=== PATIENT | female | born 1940 | race Caucasian/White ===

== ENCOUNTER 2017-05-26 14:31 | Inpatient (IN) ==
[2017-05-26] MEDS ORDERED: *HR* Morphine 2 MG/ML SYRINGE IVP PRN (18:57)
[2017-05-26] MEDS ORDERED: Ondansetron 4 MG/2 ML VIAL IVP PRN (18:57)
[2017-05-26] MEDS ORDERED: Naloxone 0.4 MG/ML INJ IVP PRN (18:57)
--- NOTE | 2017-05-26 19:02 | Internal Med History&Physical ---
Date of Encounter: 05/26/17 Time of Encounter: 19:02 Assessment and Plan (1) Spontaneous pneumothorax Current visit: Yes Status: Acute Recently discharged after receiving chest tube for spontaneous pneumothorax. CT surgery consult appreciated- unclear if this is a new event or progression of previous episode. Continue chest tube, per CT surgery. Pain control with PRN Oxycodone and Morphine. Patient may require talc pleurodesis/surgery. Will hold Plavix and Xarelto for now. Continue supplemental O2 and supportive care. (2) CHF (congestive heart failure) Current visit: Yes Status: Chronic Not in acute exacerbation. Continue diuretics, beta eri and ACEI. Fluid restriction. Qualifiers: Congestive heart failure type: combined Congestive heart failure chronicity : chronic Qualified Code(s): I50.42 - Chronic combined systolic (congestive) and diastolic (congestive) heart failure (3) Atrial fibrillation Current visit: Yes Status: Chronic currently rate-controlled. Continue Telemetry monitoring and Metoprolol. Hold Xarelto. Qualifiers: Atrial fibrillation type: chronic Qualified Code(s): I48.2 - Chronic atrial fibrillation (4) COPD (chronic obstructive pulmonary disease) Current visit: Yes Status: Chronic Not in acute exacerbation. Continue Advair, as needed bronchodilators, Spiriva, supplemental O2; she is on home O2; Qualifiers: COPD type: unspecified COPD Qualified Code(s): J44.9 - Chronic obstructive pulmonary disease, unspecified (5) Coronary artery disease Current visit: Yes Status: Chronic Qualifiers: Coronary Disease-Associated Artery/Lesion type: [place] artery [place] vs. transplanted heart: [place] heart Associated angina: without angina Qualified Code(s): I25.10 - Atherosclerotic heart disease of [place] coronary artery without angina pectoris (6) Diabetes Current visit: Yes Status: Chronic Accucheck blood glucose monitoring with basal bolus insulin regimen. Diabetic diet. 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 Magallanes is a 77 year old female with multiple medical problems, presenting with progressive shortness of breath. Patient was recently discharged from our hospital after being treated for pneumothorax. She felt better for 2-3 days after discharge after which she started feeling progressively short of breath, aggravated with exertion, associated with intermittent right-sided chest pain. She was extremely tired and could not get around the house. She does live alone as her is in a alf due to dementia. No fever, chills, cough, nausea, vomiting or any other complaints. Past Med Surg Social Fam HX - Past Medical History Medical history: atrial fibrillation, COPD, coronary artery disease, DVT, diabetes, GERD, hyperlipidemia, hypertension, other Psychiatric history: depression - Past Surgical History Surgical History: angioplasty/stent, cholecystectomy, hysterectomy, other - Social History Smoking Status: Former smoker Smokeless Tobacco Status: No Alcohol use: none Drug use: none Current living situation: Home - Independent Activity Level: Uses cane/walker Recent Out of Country Travel Within the Last 8 Weeks: No - Family History Mother Adopted: No Living Status: Hx Family Cardiac Disorders: Yes Hx Family Respiratory Disorders: Yes (COPD) Hx Family Cancer: Yes (lung, breast) Hx Family GI Disorders: No Hx Family Endocrine Disorder: No Hx Family Neuromuscular Disorders: No Hx Family Neurologic Disorders: No Hx Family HEENT Disorders: No Hx Family Autoimmune Disorders: Yes (non hygkins lymphoma) Internal Medicine - H&P: Meds Calcitriol [Rocaltrol] 0.25 mcg PO MOWEFR 03/07/16 [History] Carbidopa/Levodopa 25/100 [Sinemet 25/100] 1 tab PO TID 03/07/16 [History] Cholecalciferol (Vitamin D3) [Vitamin D3] 5,000 unit PO DAILY 03/07/16 [History] Clopidogrel Bisulfate [Plavix] 75 mg PO DAILY 03/07/16 [History] Fluticasone Propionate Nasal [Flonase] 2 spray NS HS 03/07/16 [History] Furosemide [Lasix] 40 mg PO DAILY 03/07/16 [History] Gabapentin [Neurontin] 800 mg PO QID 03/07/16 [History] HYDROcodone/Acet 5/325 mg [Latexo 5-325 mg] 1 tab PO TID 03/07/16 [History] Insulin ASPART [Novolog Flexpen] 12 unit SQ TID 03/07/16 [History] Insulin DETEMIR [Levemir Flextouch] 80 unit SQ QAM 03/07/16 [History] Leflunomide [Arava] 10 mg PO QPM 03/07/16 [History] Levothyroxine Sodium [Tirosint] 88 mcg PO DAILY 03/07/16 [History] Magnesium l-Lactate [Mag-Tab Sr] 84 mg PO QPM 03/07/16 [History] Potassium Chloride [K-Tab ER] 20 meq PO TID 03/07/16 [History] Rivaroxaban [Xarelto] 15 mg PO QPM 03/07/16 [History] Tiotropium [Spiriva] 1 cap PO DAILY 03/07/16 [History] Ustekinumab [Stelara (For Outpatient Infusion)] 90 mg SQ [id number] 03/07/16 [ History] Vitamin B Complex [B Complex] 1 tab PO QPM 03/07/16 [History] Acetaminophen [Tylenol Arthritis] 650 mg PO DAILY 04/02/16 [History] Ascorbic Acid [Vitamin C] 1,000 mg PO DAILY 04/02/16 [History] Cetirizine HCl [Zyrtec] 10 mg PO QPM 04/02/16 [History] Fluticasone/Salmeterol [Advair 250-50 Diskus] 1 puff IH BID 04/02/16 [History] Inulin/Chromium Picolinate [Fiber Gummies] 500 mg PO DAILY #0 04/02/16 [History ] Levalbuterol [Xopenex INH] 2 puff PO Q6H 04/02/16 [History] Pantoprazole Sodium [Protonix] 40 mg PO DAILY 02/10/17 [History] hydrOXYzine pamoate [Hydroxyzine Pamoate] 25 mg PO Q6H PRN 02/10/17 [History] Alendronate Sodium [Fosamax] 70 mg PO QWEEK 05/18/17 [History] Atorvastatin [Lipitor] 40 mg PO HS 05/18/17 [History] Metoprolol [Lopressor] 25 mg PO BID 05/18/17 [History] Tizanidine HCl 4 mg PO DAILY PRN 05/18/17 [History] Allergies amlodipine [From Norvasc] Allergy (Severe, Verified 05/26/17 07:47) Swelling of Lip/Tongue/Throat carbamazepine [From Tegretol] Allergy (Mild, Verified 05/26/17 07:47) Hives ciprofloxacin [From Cipro] Allergy (Mild, Verified 05/26/17 07:47) Rash nitrofurantoin [From Macrobid] Allergy (Mild, Verified 05/26/17 07:47) Rash Sulfa (Sulfonamide Antibiotics) Allergy (Mild, Verified 05/26/17 07:47) Hives sulfamethoxazole [From Bactrim] Allergy (Mild, Verified 05/26/17 07:47) Rash trimethoprim [From Bactrim] Allergy (Mild, Verified 05/26/17 07:47) Rash acetaminophen [From Percocet] Adverse Reaction (Mild, Verified 05/26/17 07:47) Confusion meperidine [From Demerol] Adverse Reaction (Mild, Verified 05/26/17 07:47) Vomiting Oxycodone [From Percocet] Adverse Reaction (Mild, Verified 05/26/17 07:47) Confusion promethazine [From Phenergan] Adverse Reaction (Mild, Verified 05/26/17 07:47) Vomiting NSAIDS (Non-Steroidal Anti-Inflamma Adverse Reaction (Unknown, Verified 07:47) UNABLE TO TAKE D/T KIDNEY DYSFUNCTION All Systems PM: A 10-system review of systems was performed and is negative for pertinent findings except as documented above in the HPI. - Constitutional Constitutional: fatigue, malaise, no chills, no fever(s), no night sweats - EENT Eyes: no change in vision, no discharge, no pain, no photophobia Ears: no ear discharge, no ear pain, no tinnitus Nose, mouth and throat: no dysphagia, no nasal discharge, no neck pain, no sore throat - Cardiovascular Cardiovascular ROS IM: chest pain, dyspnea - Respiratory Respiratory: dyspnea, dyspnea on exertion - Gastrointestinal Gastrointestinal: no abdominal pain, no diarrhea, no hematemesis, no hematochezia, no melena, no nausea, no vomiting - Genitourinary Genitourinary: no change in urinary stream, no dysuria, no flank pain, no hematuria - Musculoskeletal Musculoskeletal ROS IM: no numbness, no tingling - Integumentary Integumentary IM: no rash, no unusual bruising - Neurological Neurological ROS: no confusion, no convulsions, no focal weakness, no numbness, no tingling, no tremor(s) - Hematologic/Lymphatic Hematologic/Lymphatic: no easy bruising - Constitutional Vitals: Temp Pulse Resp BP Pulse Ox 97.9 F 70 16 184/101 97 05/26/17 16:46 05/26/17 16:46 05/26/17 16:46 05/26/17 16:46 05/26/17 16:46 General appearance: Present: mild distress, A&O X 3, answers questions appropriately - Respiratory Respiratory exam: Present: decreased breath sounds (at right apex), CTAB. Absent: accessory muscle use, rales, rhonchi, wheezes Additional comments: right anterior chest tube in place - Cardiovascular Cardiovascular exam: Present: irregular rhythm, +S1, +S2. Absent: diastolic murmur, gallop, rubs, systolic murmur - GI/Abdominal GI/Abdominal exam: Present: normal bowel sounds, soft, no peritoneal signs. Absent: distended, tenderness - Extremities Exam Extremities exam: Present: pedal edema, warm, radial pulses palpable and symetrical. Absent: calf tenderness, cyanotic - Neurological Exam Neurological exam: Present: CN II-XII intact, oriented X3, no focal deficits. Absent: pronater drift, facial droop, speech deficit - Skin Skin exam: Present: dry, intact Internal Med - H&P Results - Labs CBC & Chem 7: 05/27/17 04:14 05/27/17 04:14 - EKG Data -: EKG Interpreted by Myself (atrial fibrillation)
[2017-05-26] MEDS: Carbidopa/Levodopa 25/100 TABLET PO SCH (20:34)
[2017-05-26] MEDS: Acetaminophen 325 MG TABLET PO PRN (20:34)
[2017-05-26] MEDS: Gabapentin 400 MG CAPSULE PO SCH (20:34)
[2017-05-26] MEDS: Fluticasone Propionate Nasal 50 MCG/SPRAY BOTTLE NS SCH (21:34)
[2017-05-26] MEDS: Levalbuterol 1 PUFF INHALER IH SCH ×2 (22:41→22:51)
[2017-05-26] MEDS: Budesonide/Formoterol 80/4.5 MDI IH SCH (22:50)
[2017-05-26] MEDS: *HR* OxyCODONE Immed Rel 5 MG TABLET PO PRN (23:38)
[2017-05-27] MEDS: Acetaminophen 325 MG TABLET PO PRN (03:10)
[2017-05-27 04:23] LABS: Basophils # 0.1 K/mcL (0.0-0.2); Basophils % 1.8 %; Eosinophils # 0.4 K/mcL (0.0-0.6); Eosinophils % 5.7 %; Hematocrit 38.7 % (35.3-44.9); Hemoglobin 12.3 g/dL (11.5-15.4); Immature Granulocytes % 0.7 % (0-4); Lymphocytes # 1.4 K/mcL (0.6-4.6); Lymphocytes % 18.3 %; Mean Corpuscular HGB Conc 31.8 g/dL (31.6-35.5); Mean Corpuscular Hemoglobin 29.4 pg (28.0-33.3); Mean Corpuscular Volume 92.6 fL (83.0-100.0); Mean Platelet Volume 12.2 fL (9.4-12.4); Monocytes # 0.7 K/mcL (0.0-1.3); Neutrophils # 4.7 K/mcL (1.6-8.9); Platelet Count 177 K/mcL (140-400); Red Blood Count 4.18 M/mcL (3.82-4.97); Red Cell Distribution Width 14.3 % (11.5-14.5); Segmented Neutrophils % 63.5 %
[2017-05-27 04:37] LABS: BUN/Creatinine Ratio 17 (6-26); Blood Urea Nitrogen 14 mg/dL (7-20); Calcium 9.2 mg/dL (8.6-10.8); Carbon Dioxide 33 mEq/L (19-29); Chloride 100 mEq/L (98-109); Glucose 169 mg/dL (70-99); Osmolality,Calculated 296 (280-300); Potassium 3.9 mEq/L (3.5-4.5); Sodium 141 mEq/L (136-145); eGFR For African Americans > 60 (> 60); eGFR For Non-African Americans > 60 (> 60)
[2017-05-27] MEDS: Levalbuterol 1 PUFF INHALER IH SCH (05:07)
[2017-05-27] MEDS: *HR* OxyCODONE Immed Rel 5 MG TABLET PO PRN (08:13)
[2017-05-27] MEDS: Carbidopa/Levodopa 25/100 TABLET PO SCH ×3 (08:13→21:02)
[2017-05-27] MEDS: Insulin DETEMIR 100 UNIT/ML X5UNITS SQ SCH (08:13)
[2017-05-27] MEDS: Gabapentin 400 MG CAPSULE PO SCH ×2 (08:13→21:02)
[2017-05-27] MEDS ORDERED: Furosemide 40 MG TABLET PO SCH (09:00)
[2017-05-27] MEDS ORDERED: Tiotropium 18 MCG inhalation IH SCH (09:00)
[2017-05-27] MEDS ORDERED: Acetaminophen/Butalbital/CaffeineTABLET PO ONE (09:01)
[2017-05-27] MEDS ORDERED: *HR* Morphine 2 MG/ML SYRINGE IVP PRN (09:03)
[2017-05-27] MEDS ORDERED: 0.9 % Sodium Chloride 1,000 ML IVC SCH (09:15)
--- NOTE | 2017-05-27 09:18 | Cardiothoracic Progress Note ---
Date of Encounter: 05/27/17 Time of Encounter: 09:16 - Assessment and plan (1) Spontaneous pneumothorax Current Visit: Yes Status: Acute The patient has no air leak on chest tube suction. This should continue for 2-3 more days and then the patient will have a Heimlich valve placed on the chest tube. She will be discharged home with a Heimlich valve and then seen in the office for removal. The assessment and plan as outlined above was discussed with the patient and/or family members who expressed understanding and agreement. All questions were answered. - Subjective Interval history: Patient is sitting comfortably in a chair at the bedside. She has no complaints. Vital Signs, Last 4 Hours Temp Pulse Resp BP Pulse Ox 05/27/17 07:45 98 05/27/17 07:09 98.2 F 76 16 171/54 98 Oxgyen Flow Rate Oxygen Flow Rate (LPM) 2 Clinical Data, last 8 Hours Output, Urine Amount 0 Output, Urine Amount 0 Weight 05/25/17 05/26/17 05/27/17 23:59 23:59 23:59 Weight 98.4 kg 99.8 kg - Physical Examination General: Conversant, No Apparent Distress Neck: No JVD, Normal carotid pulses Cardiac: Reg Rate and Rhythm, Normal S1 and S2, No Murmur Incision: No signs of infection, Dry/intact dressing Chest tubes: Minimal drainage, Other (No air leak.) Lungs: Normal Breath Sounds, No Wheeze, Rales, Rhonchi Neuro: Alert and responsive, No focal deficits noted Vascular: Normal capillary refill Musculoskeletal: No Chest Wall Tenderness Extremities: No Clubbing, No Cyanosis, No Edema - Labs 05/27/17 04:14 05/27/17 04:14 Lab Results, Last 24 hours 05/27/17 05/27/17 04:14 04:14 WBC 7.4 Hgb 12.3 Hct 38.7 Plt Count 177 Sodium 141 Potassium 3.9 Chloride 100 Carbon Dioxide 33 H BUN 14 Creatinine 0.81 Glucose 169 H Calcium 9.2 Consult Discharge Plan - Plan Referrals: NO,PCP [Primary Care Provider] -
[2017-05-27] MEDS: Budesonide/Formoterol 80/4.5 MDI IH SCH ×2 (10:55→22:23)
[2017-05-27] MEDS: Ipratropium/Albuterol Neb 3 ML IH SCH ×3 (10:55→22:23)
[2017-05-27] MEDS: *HR* OxyCODONE Immed Rel 5 MG TABLET PO SCH ×3 (12:10→21:01)
--- NOTE | 2017-05-27 12:24 | Internal Med Progress Note ---
Date of Encounter: 05/27/17 Time of Encounter: 09:30 - Assessment and plan (1) Spontaneous pneumothorax Current Visit: Yes Status: Acute Assessment and plan: Cardiothoracic surgery on board. Appreciate input and assistance. Continue chest tube suction. Patient is at high risk due to need for chest tube monitoring. She is at risk of worsening respiratory failure that may require intubation and mechanical ventilation. (2) Atrial fibrillation Current Visit: Yes Status: Chronic Assessment and plan: Rate controlled. Continue home medications. Anti-regulation is currently on hold due to possible surgical intervention by cardiac thoracic surgery. Qualifiers: Atrial fibrillation type: chronic Qualified Code(s): I48.2 - Chronic atrial fibrillation (3) CHF (congestive heart failure) Current Visit: Yes Status: Chronic Assessment and plan: Patient appears mildly hypovolemic. Hold Lasix and gentle hydration. Qualifiers: Congestive heart failure type: diastolic Congestive heart failure chronicity: chronic Qualified Code(s): I50.32 - Chronic diastolic (congestive ) heart failure (4) COPD (chronic obstructive pulmonary disease) Current Visit: Yes Status: Chronic Assessment and plan: Complicated by pneumothorax. Currently the chest tube. Continue breathing treatments. Qualifiers: COPD type: emphysema Emphysema type: panlobular Qualified Code(s): J43.1 - Panlobular emphysema (5) Coronary artery disease Current Visit: Yes Status: Chronic Assessment and plan: Stable. Continue aspirin and Plavix. Continue beta eri and statin. Qualifiers: Coronary Disease-Associated Artery/Lesion type: [place] artery [place] vs. transplanted heart: [place] heart Associated angina: without angina Qualified Code(s): I25.10 - Atherosclerotic heart disease of [place] coronary artery without angina pectoris (6) Diabetes Current Visit: Yes Status: Chronic Assessment and plan: Controlled blood sugars. Continue home regimen. Continue sliding scale insulin. 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 Continue home medications. (8) Parkinson disease Current Visit: Yes Status: Chronic (9) Obesity (BMI 30-39.9) Current Visit: No Status: Chronic - Subjective Interval history: Patient complains of pain in her chest and is requesting for her pain medication to be made more frequent. She also complains of 5/10 pain in her lower back in the midline without any radiation that is aggravated with movement and with lying down and relieved with sitting still and rest. She reports some nausea but denies any vomiting. She denies any shortness of breath , cough or wheezing. She states that her last stent was placed in 2014. - Constitutional Vitals: Temp Pulse Resp BP Pulse Ox 98.3 F 67 16 173/71 98 05/27/17 11:46 05/27/17 11:46 05/27/17 11:46 05/27/17 11:46 05/27/17 11:46 General appearance: Present: mild distress, A&O X 3, answers questions appropriately Exam: Gen.: Sitting in a chair. Mild distress. Chest: Clear to auscultation bilaterally. No adventitious sounds present. Right-sided chest tube present on the anterior chest wall. CVS: First and second heart sounds present. No murmurs, rubs or gallops. Abdomen: Soft, nontender, obese. Bowel sounds present. No hepatosplenomegaly. Skin: No decubitus ulcers appreciated. Internal Medicine: Result - Labs CBC & Chem 7: 05/27/17 04:14 05/27/17 04:14 Labs: Short CBC 05/27/17 Range/Units 04:14 WBC 7.4 (4.3-11.1) K/mcL Hgb 12.3 (11.5-15.4) g/dL Hct 38.7 (35.3-44.9) % Plt Count 177 (140-400) K/mcL Neutrophils # 4.7 (1.6-8.9) K/mcL BMP 05/27/17 04:14 Sodium 141 Potassium 3.9 Chloride 100 Carbon Dioxide 33 H BUN 14 Creatinine 0.81 Glucose 169 H Calcium 9.2 Consult Discharge Plan - Plan Referrals: NO,PCP [Primary Care Provider] -
[2017-05-27] MEDS ORDERED: Dextrose Gel 15 GM PO PRN ×2 (13:20)
[2017-05-27] MEDS ORDERED: *HR* Dextrose 50 % in Water (Syg) 50 ML SYRINGE IVP PRN (13:20)
[2017-05-27] MEDS ORDERED: D5% in Water 1,000 ML IVC PRN (13:20)
[2017-05-27] MEDS ORDERED: cloNIDine HCl 0.1 MG TABLET PO ONE (13:34)
[2017-05-27] MEDS: Insulin LISPRO 300 UNITS/3 ML VIAL SQ SCH ×2 (17:12→21:02)
[2017-05-27] MEDS: Fluticasone Propionate Nasal 50 MCG/SPRAY BOTTLE NS SCH (21:03)
[2017-05-28] MEDS: *HR* OxyCODONE Immed Rel 5 MG TABLET PO SCH ×7 (00:55→23:32)
[2017-05-28] MEDS: Ipratropium/Albuterol Neb 3 ML IH SCH ×4 (03:58→21:19)
[2017-05-28 05:04] LABS: Alanine Aminotransferase < 6 Units/L (0-55); Albumin 2.8 g/dL (3.5-5.0); Alkaline Phosphatase 77 Units/L (38-126); Aspartate Amino Transferase 13 Units/L (5-34); BUN/Creatinine Ratio 21 (6-26); Bilirubin,Total 0.4 mg/dL (0.2-1.2); Blood Urea Nitrogen 17 mg/dL (7-20); Calcium 8.4 mg/dL (8.6-10.8); Carbon Dioxide 31 mEq/L (19-29); Chloride 104 mEq/L (98-109); Globulin 2.9 g/dL (2.4-3.5); Glucose 112 mg/dL (70-99); Osmolality,Calculated 292 (280-300); Sodium 140 mEq/L (136-145); Total Protein 5.7 g/dL (6.0-8.3); eGFR For African Americans > 60 (> 60); eGFR For Non-African Americans > 60 (> 60)
[2017-05-28 05:05] LABS: Potassium 4.3 mEq/L (3.5-4.5)
[2017-05-28 06:29] LABS: Basophils # 0.1 K/mcL (0.0-0.2); Basophils % 1.3 %; Eosinophils # 0.3 K/mcL (0.0-0.6); Eosinophils % 4.7 %; Hemoglobin 10.5 g/dL (11.5-15.4); Immature Granulocytes % 1.2 % (0-4); Lymphocytes # 1.3 K/mcL (0.6-4.6); Lymphocytes % 19.1 %; Mean Corpuscular HGB Conc 31.8 g/dL (31.6-35.5); Mean Corpuscular Hemoglobin 29.1 pg (28.0-33.3); Mean Corpuscular Volume 91.4 fL (83.0-100.0); Mean Platelet Volume 13.3 fL (9.4-12.4); Monocytes # 0.7 K/mcL (0.0-1.3); Monocytes % 10.2 %; Neutrophils # 4.3 K/mcL (1.6-8.9); Platelet Count 126 K/mcL (140-400); Red Blood Count 3.61 M/mcL (3.82-4.97); Segmented Neutrophils % 63.5 %
--- NOTE | 2017-05-28 07:47 | Cardiothoracic Progress Note ---
Date of Encounter: 05/28/17 Time of Encounter: 07:45 - Assessment and plan (1) Spontaneous pneumothorax Current Visit: Yes Status: Acute The patient has no air leak on chest tube suction. The chest tube was placed to waterseal. If tomorrow's chest x-ray shows pneumothorax a Heimlich valve be placed on the chest tube. If she tolerates the Heimlich valve, she may be discharged home on Tuesday. I will see her in the office in 5-7 days for chest tube removal if no air leak redevelops. The assessment and plan as outlined above was discussed with the patient and/or family members who expressed understanding and agreement. All questions were answered. - Subjective Interval history: The patient is resting comfortably in her hospital bed. She has no complaints. Vital Signs, Last 4 Hours Temp Pulse Resp BP Pulse Ox 05/28/17 07:00 98.2 F 81 18 138/65 96 05/28/17 04:05 98 F 63 16 125/49 100 05/28/17 03:58 16 98 Oxgyen Flow Rate Oxygen Flow Rate (LPM) 0 Clinical Data, last 8 Hours Output, Urine Amount 150 Weight 05/26/17 05/27/17 05/28/17 23:59 23:59 23:59 Weight 98.4 kg 99.8 kg - Physical Examination General: Conversant, No Apparent Distress Neck: No JVD, Normal carotid pulses Cardiac: Reg Rate and Rhythm, Normal S1 and S2, No Murmur Incision: No signs of infection, Dry/intact dressing Chest tubes: Minimal drainage, Other (No air leak.) Lungs: Normal Breath Sounds, No Wheeze, Rales, Rhonchi Neuro: Alert and responsive, No focal deficits noted Vascular: Normal capillary refill Musculoskeletal: No Chest Wall Tenderness Extremities: No Clubbing, No Cyanosis, No Edema - Labs 05/28/17 05:19 05/28/17 03:56 Lab Results, Last 24 hours 05/28/17 05/28/17 03:56 05:19 WBC 6.8 Hgb 10.5 L D Hct 33.0 L Plt Count 126 L Sodium 140 Potassium 4.3 Chloride 104 Carbon Dioxide 31 H BUN 17 Creatinine 0.82 Glucose 112 H Calcium 8.4 L Total Bilirubin 0.4 AST 13 ALT < 6 Alkaline Phosphatase 77 - Imaging Chest Xray: image reviewed (No pneumothorax. Right middle lobe atelectasis/ infiltrate.) Consult Discharge Plan - Plan Referrals: NO,PCP [Primary Care Provider] -
[2017-05-28] MEDS: Gabapentin 400 MG CAPSULE PO SCH ×2 (08:22→19:55)
[2017-05-28] MEDS: Carbidopa/Levodopa 25/100 TABLET PO SCH ×3 (08:23→19:55)
[2017-05-28] MEDS: Insulin LISPRO 300 UNITS/3 ML VIAL SQ SCH ×4 (08:24→22:16)
[2017-05-28] MEDS: Insulin DETEMIR 100 UNIT/ML X5UNITS SQ SCH (08:26)
--- NOTE | 2017-05-28 09:48 | Internal Med Progress Note ---
Date of Encounter: 05/28/17 Time of Encounter: 08:15 - Assessment and plan (1) Spontaneous pneumothorax Current Visit: Yes Status: Acute Assessment and plan: Cardiothoracic surgery on board. Chest tube disconnected from suction and placed on waterseal. His repeat chest x-ray tomorrow does not reveal any pneumothorax, Heimlich valve will be placed and the patient may be discharged home according to cardiothoracic surgery. Patient is at high risk due to need for chest tube monitoring. She is at risk of worsening respiratory failure that may require intubation and mechanical ventilation. (2) Atrial fibrillation Current Visit: Yes Status: Chronic Assessment and plan: Rate controlled. Continue home medications. Anticoagulation is currently on hold due to possible surgical intervention by cardiac thoracic surgery. Qualifiers: Atrial fibrillation type: chronic Qualified Code(s): I48.2 - Chronic atrial fibrillation (3) CHF (congestive heart failure) Current Visit: Yes Status: Chronic Assessment and plan: Patient appears euvolemic. Will discontinue hydration Qualifiers: Congestive heart failure type: diastolic Congestive heart failure chronicity: chronic Qualified Code(s): I50.32 - Chronic diastolic (congestive ) heart failure (4) COPD (chronic obstructive pulmonary disease) Current Visit: Yes Status: Chronic Assessment and plan: Complicated by pneumothorax. Continue chest tube. Continue breathing treatments. Qualifiers: COPD type: emphysema Emphysema type: panlobular Qualified Code(s): J43.1 - Panlobular emphysema (5) Coronary artery disease Current Visit: Yes Status: Chronic Assessment and plan: Stable. Continue aspirin and Plavix. Continue beta eri and statin. Qualifiers: Coronary Disease-Associated Artery/Lesion type: [place] artery [place] vs. transplanted heart: [place] heart Associated angina: without angina Qualified Code(s): I25.10 - Atherosclerotic heart disease of [place] coronary artery without angina pectoris (6) Diabetes Current Visit: Yes Status: Chronic Assessment and plan: Controlled blood sugars. Continue home regimen. Continue sliding scale insulin. Qualifiers: Diabetes mellitus type: type 2 Diabetes mellitus complication status: with circulatory complication Diabetes mellitus complication detail: with other circulatory complications Diabetes mellitus skilled nursing insulin use: with skilled nursing use Qualified Code(s): E11.59 - Type 2 diabetes mellitus with other circulatory complications; Z79.4 - [facility] (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 (7) Essential hypertension Current Visit: Yes Status: Chronic Assessment and plan: Controlled blood pressure. Continue home medications. (8) Parkinson disease Current Visit: Yes Status: Chronic Assessment and plan: Continue home medications. Stable. (9) Obesity (BMI 30-39.9) Current Visit: No Status: Chronic - Subjective Interval history: Patient states that her pain is much better controlled compared to yesterday with the change in pain medications and with the Lidoderm patch. She states that her breathing is getting better. She denies any cough or wheezing. She was evaluated by cardiothoracic surgery this morning and has been disconnected from suction. She is currently connected to [employer]. - Constitutional Vitals: Temp Pulse Resp BP Pulse Ox 98.2 F 81 18 138/65 96 05/28/17 07:00 05/28/17 07:00 05/28/17 07:00 05/28/17 07:00 05/28/17 07:00 General appearance: Present: mild distress, A&O X 3, answers questions appropriately Exam: Gen.: Sitting in a chair. No acute distress. Chest: Clear to auscultation bilaterally. No adventitious sounds present. Chest tube in the right anterior chest wall. CVS: First and second heart sounds present. No murmurs, rubs or gallops. Abdomen: Soft, nontender, nondistended. Bowel sounds present. No hepatosplenomegaly. Internal Medicine: Result - Labs CBC & Chem 7: 05/28/17 05:19 05/28/17 03:56 Labs: Short CBC 05/28/17 Range/Units 05:19 WBC 6.8 (4.3-11.1) K/mcL Hgb 10.5 L D (11.5-15.4) g/dL Hct 33.0 L (35.3-44.9) % Plt Count 126 L (140-400) K/mcL Neutrophils # 4.3 (1.6-8.9) K/mcL BMP 05/28/17 03:56 Sodium 140 Potassium 4.3 Chloride 104 Carbon Dioxide 31 H BUN 17 Creatinine 0.82 Glucose 112 H Calcium 8.4 L Liver Function 05/28/17 Range/Units 03:56 Total Bilirubin 0.4 (0.2-1.2) mg/dL AST 13 (5-34) Units/L ALT < 6 (0-55) Units/L Alkaline Phosphatase 77 (38-126) Units/L Albumin 2.8 L (3.5-5.0) g/dL - Impressions Impressions Chest X-Ray 05/28/17 06:00 IMPRESSION: 1. Negative for pneumothorax. 2. Developing right middle lobe atelectasis versus pneumonia. D/ / Richy Nagel MD / Richy Nagel MD Interpreting Provider: Richy Nagel MD - Diagnostic Studies Chest x-ray Status: image reviewed by me (No pneumothorax seen) Consult Discharge Plan - Plan Referrals: NO,PCP [Primary Care Provider] -
[2017-05-28] MEDS: Budesonide/Formoterol 80/4.5 MDI IH SCH ×2 (10:57→21:19)
[2017-05-28 18:10] LABS: Uric Acid 8.7 mg/dL (2.6-6.0)
[2017-05-28] MEDS: Fluticasone Propionate Nasal 50 MCG/SPRAY BOTTLE NS SCH (19:55)
[2017-05-28] MEDS: tiZANidine 4 MG TABLET PO PRN (21:56)
[2017-05-29] MEDS: Acetaminophen 325 MG TABLET PO PRN (02:11)
[2017-05-29] MEDS: *HR* OxyCODONE Immed Rel 5 MG TABLET PO SCH ×5 (03:01→20:07)
[2017-05-29] MEDS: Ipratropium/Albuterol Neb 3 ML IH SCH (03:54)
[2017-05-29 06:29] LABS: Basophils # 0.1 K/mcL (0.0-0.2); Basophils % 1.4 %; Eosinophils # 0.3 K/mcL (0.0-0.6); Eosinophils % 3.9 %; Hematocrit 33.9 % (35.3-44.9); Hemoglobin 10.5 g/dL (11.5-15.4); Immature Granulocytes % 0.5 % (0-4); Lymphocytes % 16.2 %; Mean Corpuscular Hemoglobin 28.6 pg (28.0-33.3); Mean Corpuscular Volume 92.4 fL (83.0-100.0); Mean Platelet Volume 12.1 fL (9.4-12.4); Monocytes # 0.7 K/mcL (0.0-1.3); Neutrophils # 4.3 K/mcL (1.6-8.9); Platelet Count 140 K/mcL (140-400); Red Blood Count 3.67 M/mcL (3.82-4.97); Red Cell Distribution Width 14.1 % (11.5-14.5)
--- NOTE | 2017-05-29 07:41 | Cardiothoracic Progress Note ---
Date of Encounter: 05/29/17 Time of Encounter: 07:40 - Assessment and plan (1) Spontaneous pneumothorax Current Visit: Yes Status: Acute The patient has no air leak on chest tube suction. The Heimlich valve was placed on the chest tube. If tomorrow's chest x-ray shows no recurrent pneumothorax she may be discharged home with the Heimlich valve. The nurses should instruct her how to evaluate the Heimlich valve for her leak. I will see her in the office in 5-7 days for chest tube removal if no air leak redevelops. The assessment and plan as outlined above was discussed with the patient and/or family members who expressed understanding and agreement. All questions were answered. - Subjective Interval history: The patient is resting comfortably in her hospital bed. She has no complaints. Vital Signs, Last 4 Hours Temp Pulse Resp BP Pulse Ox 05/29/17 07:00 97.6 F 70 18 183/89 97 05/29/17 03:54 16 97 Oxgyen Flow Rate Oxygen Flow Rate (LPM) 2 Weight 05/27/17 05/28/17 05/29/17 23:59 23:59 23:59 Weight 99.8 kg - Physical Examination General: Conversant, No Apparent Distress Neck: No JVD, Normal carotid pulses Cardiac: Reg Rate and Rhythm, Normal S1 and S2, No Murmur Chest tubes: Minimal drainage, Other (No air leak.) Lungs: Normal Breath Sounds, No Wheeze, Rales, Rhonchi Neuro: Alert and responsive, No focal deficits noted Vascular: Normal capillary refill Musculoskeletal: No Chest Wall Tenderness Extremities: No Clubbing, No Cyanosis, No Edema - Labs 05/29/17 05:41 05/28/17 03:56 Lab Results, Last 24 hours 05/28/17 05/29/17 03:56 05:41 WBC 6.4 Hgb 10.5 L Hct 33.9 L Plt Count 140 Sodium 140 Potassium 4.3 Chloride 104 Carbon Dioxide 31 H BUN 17 Creatinine 0.82 Glucose 112 H Calcium 8.4 L Total Bilirubin 0.4 AST 13 ALT < 6 Alkaline Phosphatase 77 - Imaging Chest Xray: image reviewed (No pneumothorax.) Consult Discharge Plan - Plan Referrals: NO,PCP [Primary Care Provider] -
[2017-05-29] MEDS: Insulin DETEMIR 100 UNIT/ML X5UNITS SQ SCH (07:52)
[2017-05-29] MEDS: Colchicine 0.6 MG TABLET PO SCH (07:52)
[2017-05-29] MEDS: Gabapentin 400 MG CAPSULE PO SCH ×4 (07:52→20:07)
[2017-05-29] MEDS: Carbidopa/Levodopa 25/100 TABLET PO SCH ×3 (07:52→20:06)
[2017-05-29] MEDS: Insulin LISPRO 300 UNITS/3 ML VIAL SQ SCH ×4 (07:53→20:15)
[2017-05-29] MEDS ORDERED: Ipratropium/Albuterol Neb 3 ML IH PRN (07:55)
--- NOTE | 2017-05-29 12:10 | Internal Med Progress Note ---
Date of Encounter: 05/29/17 Time of Encounter: 11:45 - Assessment and plan (1) Spontaneous pneumothorax Current Visit: Yes Status: Resolved Assessment and plan: Cardiothoracic surgery on board. Chest tube disconnected from waterseal and connected to a Heimlich valve. According to cardiothoracic surgery, if the patient remains stable tomorrow, likely discharge home with chest tube removal as an outpatient in the clinic. Pain control Patient moderate distress due to risk of recurrent pneumothorax and the need for close monitoring with a Heimlich valve. (2) Atrial fibrillation Current Visit: Yes Status: Chronic Assessment and plan: Rate controlled. Continue home medications. Continue to hold anticoagulation. Patient may resume anticoagulation when cleared by cardiothoracic surgery. Qualifiers: Atrial fibrillation type: chronic Qualified Code(s): I48.2 - Chronic atrial fibrillation (3) CHF (congestive heart failure) Current Visit: Yes Status: Chronic Assessment and plan: Resume home dose of Lasix. Qualifiers: Congestive heart failure type: diastolic Congestive heart failure chronicity: chronic Qualified Code(s): I50.32 - Chronic diastolic (congestive ) heart failure (4) COPD (chronic obstructive pulmonary disease) Current Visit: Yes Status: Chronic Assessment and plan: Complicated by pneumothorax. Continue breathing treatments as needed. Qualifiers: COPD type: emphysema Emphysema type: panlobular Qualified Code(s): J43.1 - Panlobular emphysema (5) Coronary artery disease Current Visit: Yes Status: Chronic Assessment and plan: Stable. Continue aspirin and Plavix. Continue beta eri and statin. Qualifiers: Coronary Disease-Associated Artery/Lesion type: [place] artery [place] vs. transplanted heart: [place] heart Associated angina: without angina Qualified Code(s): I25.10 - Atherosclerotic heart disease of [place] coronary artery without angina pectoris (6) Diabetes Current Visit: Yes Status: Chronic Assessment and plan: Controlled blood sugars. Continue home regimen. 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 Continue home medications. (8) Parkinson disease Current Visit: Yes Status: Chronic Assessment and plan: Continue home medications. Stable. (9) Obesity (BMI 30-39.9) Current Visit: No Status: Chronic (10) Rheumatoid arthritis Current Visit: Yes Status: Chronic Assessment and plan: Leflunomide has been on hold since admission. Right thumb pain could be related to gout versus rheumatoid arthritis. Will resume leflunomide. Continue colchicine for now. Monitor pain and swelling in the right thumb. Qualifiers: Rheumatoid arthritis location: multiple sites Rheumatoid factor presence: unspecified presence Qualified Code(s): M06.9 - Rheumatoid arthritis, unspecified - Subjective Interval history: Patient states that she had severe pain in her right chest last night when she was standing. This pain resolved after she got morphine. This morning, her chest x-ray did not reveal any pneumothorax and hence, the chest tube was disconnected from waterseal and connected to a Heimlich valve. Patient reports that her breathing is well. However, she reports that she feels weak as she has not been moving around. She continues to complain of pain in her right thumb and some redness and swelling in the right thumb. She was placed on colchicine yesterday for suspected gout. - Constitutional Vitals: Temp Pulse Resp BP Pulse Ox 97.6 F 70 18 183/89 97 05/29/17 07:00 05/29/17 07:00 05/29/17 07:00 05/29/17 07:00 05/29/17 07:00 General appearance: Present: mild distress, A&O X 3, answers questions appropriately Exam: Gen.: Sitting in a chair. No acute distress. Chest: Bilateral basal conditions present. Chest tube on the anterior side of the chest connected to a Heimlich valve. CVS: First and second heart sounds present. No murmurs, rubs or gallops. Abdomen: Soft, nontender, nondistended. Bowel sounds present. No hepatosplenomegaly. Skin: No decubitus ulcers appreciated. Internal Medicine: Result - Labs CBC & Chem 7: 05/29/17 05:41 05/28/17 03:56 Labs: Short CBC 05/29/17 Range/Units 05:41 WBC 6.4 (4.3-11.1) K/mcL Hgb 10.5 L (11.5-15.4) g/dL Hct 33.9 L (35.3-44.9) % Plt Count 140 (140-400) K/mcL Neutrophils # 4.3 (1.6-8.9) K/mcL BMP 05/28/17 03:56 Sodium 140 Potassium 4.3 Chloride 104 Carbon Dioxide 31 H BUN 17 Creatinine 0.82 Glucose 112 H Calcium 8.4 L Liver Function 05/28/17 Range/Units 03:56 Total Bilirubin 0.4 (0.2-1.2) mg/dL AST 13 (5-34) Units/L ALT < 6 (0-55) Units/L Alkaline Phosphatase 77 (38-126) Units/L Albumin 2.8 L (3.5-5.0) g/dL - Impressions Impressions Chest X-Ray 05/29/17 06:00 IMPRESSION: No pneumothorax. Right chest tube in stable position D/ / Rahul Gomez MD / Rahul Gomez MD Interpreting Provider: Rahul Gomez MD - Diagnostic Studies Chest x-ray Status: image reviewed by me (No pneumothorax) Consult Discharge Plan - Plan Referrals: NO,PCP [Primary Care Provider] -
[2017-05-29] MEDS: Budesonide/Formoterol 80/4.5 MDI IH SCH ×2 (12:17→21:38)
[2017-05-29] MEDS ORDERED: *HR* Rivaroxaban 15 MG TABLET PO SCH (18:00)
[2017-05-29] MEDS ORDERED: Loratadine 10 MG TABLET PO SCH (18:00)
[2017-05-29] MEDS ORDERED: (Leflunomide [Arava] 10 MG) PO SCH (18:00)
[2017-05-29] MEDS: tiZANidine 4 MG TABLET PO PRN (20:07)
[2017-05-29] MEDS: Fluticasone Propionate Nasal 50 MCG/SPRAY BOTTLE NS SCH (20:12)
[2017-05-30] MEDS: *HR* OxyCODONE Immed Rel 5 MG TABLET PO SCH ×2 (00:32→05:22)
[2017-05-30 04:44] LABS: BUN/Creatinine Ratio 25 (6-26); Blood Urea Nitrogen 19 mg/dL (7-20); Calcium 8.5 mg/dL (8.6-10.8); Carbon Dioxide 29 mEq/L (19-29); Chloride 107 mEq/L (98-109); Glucose 127 mg/dL (70-99); Osmolality,Calculated 292 (280-300); Potassium 4.6 mEq/L (3.5-4.5); Sodium 139 mEq/L (136-145); eGFR For African Americans > 60 (> 60); eGFR For Non-African Americans > 60 (> 60)
[2017-05-30 07:35] VITALS: BP 160/66
--- NOTE | 2017-05-30 08:28 | Cardiothoracic Progress Note ---
Date of Encounter: 05/30/17 Time of Encounter: 08:26 - Assessment and plan (1) Spontaneous pneumothorax Current Visit: Yes Status: Resolved The assessment and plan as outlined above was discussed with the patient and/or family members who expressed understanding and agreement. All questions were answered. Discussion with patient/family: Chest x-ray after chest tube removal reveals no pneumothorax. The patient has no evidence of pneumonia. She is afebrile and her white blood cell count is normal. She is okay for discharge from my standpoint. She was warned to come back to the emergency room for shortness of breath or chest pain. - Subjective Interval history: The patient pulled her chest tube and Heimlich valve out accidentally this morning. She has no complaints. Vital Signs, Last 4 Hours Temp Pulse Resp BP Pulse Ox 05/30/17 07:32 98.3 F 68 18 160/66 05/30/17 07:00 98 05/30/17 05:17 98.1 F 79 15 141/80 98 Oxgyen Flow Rate Oxygen Flow Rate (LPM) 2 Clinical Data, last 8 Hours Output, Urine Amount 250 Output, Urine Amount 400 Lungs are clear to percussion and auscultation. Heart is in a regular rate and rhythm. - Labs 05/29/17 05:41 05/30/17 03:53 Lab Results, Last 24 hours 05/30/17 03:53 Sodium 139 Potassium 4.6 H Chloride 107 Carbon Dioxide 29 BUN 19 Creatinine 0.76 Glucose 127 H Calcium 8.5 L Consult Discharge Plan - Plan Referrals: NO,PCP [Primary Care Provider] -
[2017-05-30] MEDS: Colchicine 0.6 MG TABLET PO SCH (08:51)
[2017-05-30] MEDS: Gabapentin 400 MG CAPSULE PO SCH (08:52)
[2017-05-30] MEDS: Carbidopa/Levodopa 25/100 TABLET PO SCH (08:52)
[2017-05-30] MEDS: Insulin DETEMIR 100 UNIT/ML X5UNITS SQ SCH (08:54)
[2017-05-30] MEDS: Insulin LISPRO 300 UNITS/3 ML VIAL SQ SCH (08:55)
[2017-05-30] MEDS ORDERED: Ascorbic Acid 500 MG TABLET PO SCH (09:00)
[2017-05-30] MEDS ORDERED: NON-FORMULARY MEDICATION 1 EACH EACH (Pantoprazole Sodium [Protonix] 40 MG) PO SCH (09:00)
--- NOTE | 2017-05-30 09:15 | Discharge Summary ---
Date of Encounter: 05/30/17 Time of Encounter: 08:15 - Discharge Diagnosis (1) Spontaneous pneumothorax Priority: Primary Status: Resolved (2) Atrial fibrillation Priority: Secondary Status: Chronic Qualifiers: Atrial fibrillation type: chronic Qualified Code(s): I48.2 - Chronic atrial fibrillation (3) CHF (congestive heart failure) Priority: Secondary Status: Chronic Qualifiers: Congestive heart failure type: diastolic Congestive heart failure chronicity: chronic Qualified Code(s): I50.32 - Chronic diastolic (congestive ) heart failure (4) COPD (chronic obstructive pulmonary disease) Priority: Secondary Status: Chronic Qualifiers: COPD type: emphysema Emphysema type: panlobular Qualified Code(s): J43.1 - Panlobular emphysema (5) Coronary artery disease Priority: Secondary Status: Chronic Qualifiers: Coronary Disease-Associated Artery/Lesion type: [place] artery [place] vs. transplanted heart: [place] heart Associated angina: without angina Qualified Code(s): I25.10 - Atherosclerotic heart disease of [place] coronary artery without angina pectoris (6) Diabetes Priority: Secondary Status: Chronic Qualifiers: Diabetes mellitus type: type 2 Diabetes mellitus complication status: with circulatory complication Diabetes mellitus complication detail: with other circulatory complications Diabetes mellitus continuous churn buttermaker insulin use: with continuous churn buttermaker use Qualified Code(s): E11.59 - Type 2 diabetes mellitus with other circulatory complications; Z79.4 - detention (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 (7) Essential hypertension Priority: Secondary Status: Chronic (8) Parkinson disease Priority: Secondary Status: Chronic (9) Obesity (BMI 30-39.9) Priority: Secondary Status: Chronic (10) Rheumatoid arthritis Priority: Secondary Status: Chronic Qualifiers: Rheumatoid arthritis location: multiple sites Rheumatoid factor presence: unspecified presence Qualified Code(s): M06.9 - Rheumatoid arthritis, unspecified (11) Gout Priority: Secondary Status: Acute Qualifiers: Gout site: hand Gout etiology: idiopathic Chronicity: acute Laterality : right Qualified Code(s): M10.041 - Idiopathic gout, right hand - Discharge Medications Prescriptions: Colchicine [Colcrys] 0.6 mg PO DAILY #30 tab Home Medications: Calcitriol [Rocaltrol] 0.25 mcg PO MOWEFR 03/07/16 [History] Carbidopa/Levodopa 25/100 [Sinemet 25/100] 1 tab PO TID 03/07/16 [History] Cholecalciferol (Vitamin D3) [Vitamin D3] 5,000 unit PO DAILY 03/07/16 [History] Clopidogrel Bisulfate [Plavix] 75 mg PO DAILY 03/07/16 [History] Fluticasone Propionate Nasal [Flonase] 2 spray NS HS 03/07/16 [History] Furosemide [Lasix] 40 mg PO DAILY 03/07/16 [History] Gabapentin [Neurontin] 800 mg PO QID 03/07/16 [History] HYDROcodone/Acet 5/325 mg [[place] 5-325 mg] 1 tab PO TID 03/07/16 [History] Insulin ASPART [Novolog Flexpen] 12 unit SQ TID 03/07/16 [History] Insulin DETEMIR [Levemir Flextouch] 80 unit SQ QAM 03/07/16 [History] Leflunomide [Arava] 10 mg PO QPM 03/07/16 [History] Levothyroxine Sodium [Tirosint] 88 mcg PO DAILY 03/07/16 [History] Magnesium l-Lactate [Mag-Tab Sr] 84 mg PO QPM 03/07/16 [History] Potassium Chloride [K-Tab ER] 20 meq PO TID 03/07/16 [History] Rivaroxaban [Xarelto] 15 mg PO QPM 03/07/16 [History] Tiotropium [Spiriva] 1 cap PO DAILY 03/07/16 [History] Ustekinumab [Stelara (For Outpatient Infusion)] 90 mg SQ [id number] 03/07/16 [ History] Vitamin B Complex [B Complex] 1 tab PO QPM 03/07/16 [History] Acetaminophen [Tylenol Arthritis] 650 mg PO DAILY 04/02/16 [History] Ascorbic Acid [Vitamin C] 1,000 mg PO DAILY 04/02/16 [History] Cetirizine HCl [Zyrtec] 10 mg PO QPM 04/02/16 [History] Fluticasone/Salmeterol [Advair 250-50 Diskus] 1 puff IH BID 04/02/16 [History] Inulin/Chromium Picolinate [Fiber Gummies] 500 mg PO DAILY #0 04/02/16 [History ] Levalbuterol [Xopenex INH] 2 puff PO Q6H 04/02/16 [History] Pantoprazole Sodium [Protonix] 40 mg PO DAILY 02/10/17 [History] hydrOXYzine pamoate [Hydroxyzine Pamoate] 25 mg PO Q6H PRN 02/10/17 [History] Alendronate Sodium [Fosamax] 70 mg PO QWEEK 05/18/17 [History] Atorvastatin [Lipitor] 40 mg PO HS 05/18/17 [History] Metoprolol [Lopressor] 25 mg PO BID 05/18/17 [History] Tizanidine HCl 4 mg PO DAILY PRN 05/18/17 [History] Colchicine [Colcrys] 0.6 mg PO DAILY #30 tab 05/30/17 [Rx] Allergies/Adverse Reactions: Allergies amlodipine [From Norvasc] Allergy (Severe, Verified 05/26/17 07:47) Swelling of Lip/Tongue/Throat carbamazepine [From Tegretol] Allergy (Mild, Verified 05/26/17 07:47) Hives ciprofloxacin [From Cipro] Allergy (Mild, Verified 05/26/17 07:47) Rash nitrofurantoin [From Macrobid] Allergy (Mild, Verified 05/26/17 07:47) Rash Sulfa (Sulfonamide Antibiotics) Allergy (Mild, Verified 05/26/17 07:47) Hives sulfamethoxazole [From Bactrim] Allergy (Mild, Verified 05/26/17 07:47) Rash trimethoprim [From Bactrim] Allergy (Mild, Verified 05/26/17 07:47) Rash acetaminophen [From Percocet] Adverse Reaction (Mild, Verified 05/26/17 07:47) Confusion meperidine [From Demerol] Adverse Reaction (Mild, Verified 05/26/17 07:47) Vomiting Oxycodone [From Percocet] Adverse Reaction (Mild, Verified 05/26/17 07:47) Confusion promethazine [From Phenergan] Adverse Reaction (Mild, Verified 05/26/17 07:47) Vomiting NSAIDS (Non-Steroidal Anti-Inflamma Adverse Reaction (Unknown, Verified 07:47) UNABLE TO TAKE D/T KIDNEY DYSFUNCTION - Notes to Outpatient Provider 1. Acute gout in the right thumb interphalangeal joint. Patient started on colchicine. Uric acid level elevated. Consider starting allopurinol versus probenecid as an outpatient once the acute gout flareup is adequately controlled. Date of admission: 05/26/17 16:42 Primary care physician: PCP NO Consults: 05/29/17 12:09 Consult to Physical Therapy [CONS] Routine Comment: Evaluate, develop and implement POC Reason for Consult: DC dispo Discharging clinician: Henri Way Anticipated date of discharge: 05/30/17 - Patient Status Disposition: Home Health Service Condition: Fair Functional capacity at discharge: uses cane/walker Overall status at discharge: patient is progressing back to baseline - Discharge Instructions Follow Up With: ROB,PCP [Primary Care Provider] - Malcom Miles MD [Partnered Physician] - 06/08/17 - Diet and Activity Activity: as per physical therapy, increase activity as tolerated Diet: diabetic diet, low fat, low cholesterol Hospital course: Ms. Magallanes is a 77 year old female with a history of COPD who presented to the emergency room due to shortness of breath. The patient was recently discharged from [facility] after being treated for pneumothorax. She felt well for 2-3 days after discharge but then she started feeling shortness of breath. Hence, she presented to the emergency room. This is associated with chest pain. In the emergency room, she was found to have a right-sided pneumothorax. She had a chest tube inserted and cardio thoracic surgery was consulted. Patient was admitted to the hospital. During the hospital stay, the chest tube was connected to suction and a pneumothorax resolved. Eventually , the chest tube was placed to waterseal and then connected to a Heimlich valve. The plan was to discharge the patient with a chest tube and the Heimlich valve and take out the chest tube is in outpatient in the clinic when she sees cardiothoracic surgery. However, on the night prior to discharge, the patient accidentally pulled the chest tube. The patient had a chest x-ray performed on the day of discharge which does not reveal recurrence of pneumothorax. She denies any new symptoms. She was evaluated by cardiothoracic surgery on the day of discharge and has been cleared to be discharged home. The patient has a follow-up scheduled for 06/08/[address] Miles. During the hospital stay, the patient started developing right first interphalangeal joint redness and swelling. She has been diagnosed as acute gout and started on colchicine. She is being discharged home with a prescription for colchicine. Her uric acid level was elevated. The patient may need to be started on uric acid lowering therapy depending on her response to colchicine when she sees her primary care physician. - Time Spent with Patient Total time spent providing and/or coordinating discharge services: Greater than 30 minutes (40) - Constitutional Vitals: Temp Pulse Resp BP Pulse Ox 98.3 F 68 18 160/66 98 05/30/17 07:32 05/30/17 07:32 05/30/17 07:32 05/30/17 07:32 05/30/17 07:00 General appearance: Present: mild distress, A&O X 3, answers questions appropriately Exam: Gen.: Sitting in a chair. No acute distress. Chest: Crepitations right lower lobe CVS: First and second heart sounds present. No murmurs, rubs or gallops. Abdomen: Soft, nontender, obese. Bowel sounds present. No hepatosplenomegaly.
--- NOTE | 2017-05-30 09:23 | Physician Discharge Referral ---
Home Health/Hosp Referral Info Transfer to: Home Health Attending Provider: Dr. Henri Way Provider in Charge Post Discharge: PCP - Diagnosis (1) Spontaneous pneumothorax Priority: Primary Status: Resolved (2) Atrial fibrillation Priority: Secondary Status: Chronic (3) CHF (congestive heart failure) Priority: Secondary Status: Chronic (4) COPD (chronic obstructive pulmonary disease) Priority: Secondary Status: Chronic (5) Coronary artery disease Priority: Secondary Status: Chronic (6) Diabetes Priority: Secondary Status: Chronic (7) Essential hypertension Priority: Secondary Status: Chronic (8) Parkinson disease Priority: Secondary Status: Chronic (9) Obesity (BMI 30-39.9) Priority: Secondary Status: Chronic (10) Rheumatoid arthritis Priority: Secondary Status: Chronic (11) Gout Priority: Secondary Status: Acute - Respiratory Orders Oxygen / L per min (2) Smoking Cessation: Smoking cessation has been advised. For more information, call the [place] Tobacco Quit Line at 3-545-TXKO-NOW. - Diet/Nutrition Diet/Nutrition Orders: Cardiac, No Concentrated Sweets - Activity Activity Orders: Up ad geena, Ambulate, Chair, Walker - Services Needed Following services are medically necessary services: Home Health Aide, Physical Therapy - Transfer Medications Prescriptions: Colchicine [Colcrys] 0.6 mg PO DAILY #30 tab Home Medications: Calcitriol [Rocaltrol] 0.25 mcg PO MOWEFR 03/07/16 [History] Carbidopa/Levodopa 25/100 [Sinemet 25/100] 1 tab PO TID 03/07/16 [History] Cholecalciferol (Vitamin D3) [Vitamin D3] 5,000 unit PO DAILY 03/07/16 [History] Clopidogrel Bisulfate [Plavix] 75 mg PO DAILY 03/07/16 [History] Fluticasone Propionate Nasal [Flonase] 2 spray NS HS 03/07/16 [History] Furosemide [Lasix] 40 mg PO DAILY 03/07/16 [History] Gabapentin [Neurontin] 800 mg PO QID 03/07/16 [History] HYDROcodone/Acet 5/325 mg [[place] 5-325 mg] 1 tab PO TID 03/07/16 [History] Insulin ASPART [Novolog Flexpen] 12 unit SQ TID 03/07/16 [History] Insulin DETEMIR [Levemir Flextouch] 80 unit SQ QAM 03/07/16 [History] Leflunomide [Arava] 10 mg PO QPM 03/07/16 [History] Levothyroxine Sodium [Tirosint] 88 mcg PO DAILY 03/07/16 [History] Magnesium l-Lactate [Mag-Tab Sr] 84 mg PO QPM 03/07/16 [History] Potassium Chloride [K-Tab ER] 20 meq PO TID 03/07/16 [History] Rivaroxaban [Xarelto] 15 mg PO QPM 03/07/16 [History] Tiotropium [Spiriva] 1 cap PO DAILY 03/07/16 [History] Ustekinumab [Stelara (For Outpatient Infusion)] 90 mg SQ [id number] 03/07/16 [ History] Vitamin B Complex [B Complex] 1 tab PO QPM 03/07/16 [History] Acetaminophen [Tylenol Arthritis] 650 mg PO DAILY 04/02/16 [History] Ascorbic Acid [Vitamin C] 1,000 mg PO DAILY 04/02/16 [History] Cetirizine HCl [Zyrtec] 10 mg PO QPM 04/02/16 [History] Fluticasone/Salmeterol [Advair 250-50 Diskus] 1 puff IH BID 04/02/16 [History] Inulin/Chromium Picolinate [Fiber Gummies] 500 mg PO DAILY #0 04/02/16 [History ] Levalbuterol [Xopenex INH] 2 puff PO Q6H 04/02/16 [History] Pantoprazole Sodium [Protonix] 40 mg PO DAILY 02/10/17 [History] hydrOXYzine pamoate [Hydroxyzine Pamoate] 25 mg PO Q6H PRN 02/10/17 [History] Alendronate Sodium [Fosamax] 70 mg PO QWEEK 05/18/17 [History] Atorvastatin [Lipitor] 40 mg PO HS 05/18/17 [History] Metoprolol [Lopressor] 25 mg PO BID 05/18/17 [History] Tizanidine HCl 4 mg PO DAILY PRN 05/18/17 [History] Colchicine [Colcrys] 0.6 mg PO DAILY #30 tab 05/30/17 [Rx] Allergies/Adverse Reactions: Allergies amlodipine [From [facility]] Allergy (Severe, Verified 05/26/17 07:47) Swelling of Lip/Tongue/Throat carbamazepine [From Tegretol] Allergy (Mild, Verified 05/26/17 07:47) Hives ciprofloxacin [From Cipro] Allergy (Mild, Verified 05/26/17 07:47) Rash nitrofurantoin [From Macrobid] Allergy (Mild, Verified 05/26/17 07:47) Rash Sulfa (Sulfonamide Antibiotics) Allergy (Mild, Verified 05/26/17 07:47) Hives sulfamethoxazole [From Bactrim] Allergy (Mild, Verified 05/26/17 07:47) Rash trimethoprim [From Bactrim] Allergy (Mild, Verified 05/26/17 07:47) Rash acetaminophen [From Percocet] Adverse Reaction (Mild, Verified 05/26/17 07:47) Confusion meperidine [From Demerol] Adverse Reaction (Mild, Verified 05/26/17 07:47) Vomiting Oxycodone [From Percocet] Adverse Reaction (Mild, Verified 05/26/17 07:47) Confusion promethazine [From Phenergan] Adverse Reaction (Mild, Verified 05/26/17 07:47) Vomiting NSAIDS (Non-Steroidal Anti-Inflamma Adverse Reaction (Unknown, Verified 07:47) UNABLE TO TAKE D/T KIDNEY DYSFUNCTION Certification: Further, I certify that my clinical findings support that this patient is homebound (i.e. absences from home require considerable and taxing effort and are for medical reasons or congregation services or infrequently or short duration when for other reasons) because: Homebound Reason: Patient requires assistance of a person or device to safely leave home, Leaving home requires considerable and taxing effort due to condition, Severity of cardiac or pulmonary status limits activity tolerance Attestation: My signature below is to certify that this patient is under my care and that I, or nurse practitioner, or a physician's assistant store manager working with me, has a face-to -face encounter with this patient.
[2017-05-30] MEDS: Budesonide/Formoterol 80/4.5 MDI IH SCH (10:53)
== END 2017-05-30 17:48 | disposition home health service (06) | DRG 200 ==
LOC: 2NENU 16:42
PROVIDERS: ADMIT Internal Medicine; ATTEND Internal Medicine Sleep Medicine

== ENCOUNTER 2019-07-18 21:04 | Inpatient (IN) ==
[2019-07-18] MEDS ORDERED: Naloxone 0.4 MG/ML INJ IVP PRN (23:56)
[2019-07-19] MEDS: Pantoprazole 40 MG VIAL IVP SCH ×3 (01:14→18:31)
[2019-07-19 01:37] LABS: Basophils # 0.1 K/mcL (0.0-0.2); Basophils % 0.5 %; Eosinophils # 0.3 K/mcL (0.0-0.6); Eosinophils % 1.7 %; Hematocrit 30.4 % (35.3-44.9); Hemoglobin 9.5 g/dL (11.5-15.4); Immature Granulocytes % 3.3 % (0-4); Immature Platelets 5.4 % (1.1-6.1); Lymphocytes # 0.5 K/mcL (0.6-4.6); Mean Corpuscular HGB Conc 31.3 g/dL (31.6-35.5); Mean Corpuscular Hemoglobin 35.1 pg (28.0-33.3); Mean Corpuscular Volume 112.2 fL (83.0-100.0); Mean Platelet Volume 11.7 fL (9.4-12.4); Monocytes # 0.9 K/mcL (0.0-1.3); Monocytes % 5.6 %; Nucleated Red Blood Cells 0.1 /100 WBC (0); Platelet Count 238 K/mcL (140-400); Red Blood Count 2.71 M/mcL (3.82-4.97); Red Cell Distribution Width 18.9 % (11.5-14.5); Segmented Neutrophils % 85.9 %; White Blood Count 16.7 K/mcL (4.3-11.1)
[2019-07-19 01:40] LABS: Neutrophils # 14.4 K/mcL (1.6-8.9)
[2019-07-19 01:48] LABS: INR 1.6; Prothrombin Time 17.7 Seconds (9.4-12.1)
[2019-07-19 01:51] LABS: Activated Partial Thrombo Time 30.2 Seconds (26.0-36.0)
[2019-07-19 01:56] LABS: Albumin 3.1 g/dL (3.5-5.7); Bilirubin,Total 0.9 mg/dL (0.3-1.0); Calcium 8.2 mg/dL (8.6-10.3); Globulin 3.1 g/dL (2.4-3.5); Phosphorous 7.2 mg/dL (2.7-4.5); Potassium 5.7 mEq/L (3.5-5.1); Total Protein 6.2 g/dL (6.4-8.9)
[2019-07-19 02:02] LABS: Hypochromasia Present (Not Present); Macrocytosis Present (Not Present); Platelet Estimate Normal (Normal)
[2019-07-19 02:34] LABS: Bilirubin,Urine Small (Negative); Blood,Urine Large (Negative); Clarity,Urine Turbid (Clear); Glucose,Urine (UA) Normal (Normal); Ketones,Urine Trace mg/dL (Negative); Leukocyte Esterase,Urine Large (Negative); Nitrite,Urine Negative (Negative); Protein,Urine 100 mg/dL (Neg-Trace); Specific Gravity,Urine 1.029 (1.010-1.025); Urobilinogen,Urine Normal (Normal)
[2019-07-19 02:36] LABS: Hyaline Casts,Urine None Seen per lpf (None-Few); Squamous Epithelial Cell,Urine Many per lpf (None-Few); WBC,Urine TNTC per hpf (0-3)
[2019-07-19 02:37] LABS: Color,Urine Dark Yellow (Yellow)
[2019-07-19] MEDS ORDERED: 0.9 % Sodium Chloride 1,000 ML IVC ONE (02:49)
[2019-07-19 02:50] LABS: Bacteria,Urine Many per hpf (None-Few); Yeast,Urine Many per hpf (None Seen)
[2019-07-19 02:51] LABS: RBC,Urine 30-50 per hpf (0-3)
[2019-07-19 02:51] LABS: Sodium, Urine 31.8 mEq/L
--- NOTE | 2019-07-19 03:07 | Internal Med History&Physical ---
Date of Encounter: 07/19/19 Time of Encounter: 03:05 Internal Medicine - H&P: HPI Chief complaint: dry mouth, History of present illness: Ms. Magallanes is a 79 year old female presented as a transfer from [place]. Patient urgently admitted to the emergency department from local stiffness for shortness of breath that has worsening. Patient was noted to be acute on chr onic renal failure with chest x-ray showing cranial by Devin mild pulmonary edema patient was admitted to [facility]. While patient was a [facility] patient has been getting IV fluids and IV diuresis with renal function declining and creatinine rising to 4.23. Patient empirically was started on Zosyn and doxycycline. Urine culture showed yeast. Leukocytosis continues to increase to 16.6 with left shift. Patient also noted to have hematochezia and hypotension and was alert oriented and talking prior to transferring. On arrival patient was alert to self not to place or time this history was limited for accuracy. Face to face encounter Attempted to reach the son was successful after multiple attempts #[phone]/ . Son reported the patient has been in rehab for few months and was sent to the ED due to progressively difficulty participating and dyspnea. Reported patient did not complin of cough, phlem, fever, or chills. Patient prior to rehab was independent at home and is a nonsmoker with no + FH of cardiac disease. A phone call was also placed to contact the aunt name Mireille [phone] with no answer. Past Med Surg Social Fam HX - Past Medical History Medical history: arthritis, asthma, atrial fibrillation, cancer, CHF, COPD, coronary artery disease, DVT, diabetes, fibromyalgia, hyperlipidemia, hypertension, renal disease, thyroid disease, other Additional medical history: skin cancer Psychiatric history: depression - Past Surgical History Surgical History: pacemaker Additional surgical history: parathyroidectomy,. Right knee - Social History Smoking Status: Former smoker Smokeless Tobacco Status: No Alcohol use: none Drug use: none - Family History Mother Adopted: No Living Status: Hx Family Cardiac Disorders: Yes Hx Family Respiratory Disorders: Yes (COPD) Hx Family Cancer: Yes (lung, breast) Hx Family GI Disorders: No Hx Family Endocrine Disorder: No Hx Family Neuromuscular Disorders: No Hx Family Neurologic Disorders: Yes Hx Family HEENT Disorders: No Hx Family Autoimmune Disorders: Yes (non hygkins lymphoma) Internal Medicine - H&P: Meds Carbidopa/Levodopa 25/100 [Sinemet 25/100] 1 tab PO BID 03/07/16 [History] Fluticasone Propionate Nasal [Flonase] 2 spray NS BID PRN 03/07/16 [History] Ustekinumab [Stelara (For Outpatient Infusion)] 90 mg SQ [id number] 03/07/16 [History] Vitamin B Complex [B Complex] 1 tab PO QPM 03/07/16 [History] Atorvastatin [Lipitor] 40 mg PO HS 05/18/17 [History] Albuterol Sulfate [Proair Hfa] 2 puff IH Q4H PRN 03/02/18 [History] Cholecalciferol (D-3) [Vitamin D] 1,000 unit PO DAILY tablet 11/18/18 [Rx] Loperamide [Imodium] 2 mg PO QID PRN 01/10/19 [History] Umeclidinium [place] [Incruse Ellipta] 1 puff IH DAILY 01/10/19 [History] Budesonide/Formoterol 80/4.5 [Symbicort 80/4.5] 2 puff IH BIDRESP #1 inhaler 02/21/19 [Rx] Isosorbide MONOnitrate (24 HR) [Imdur] 120 mg PO DAILY #60 tab.er.24h 02/21/19 [Rx] Amiodarone [Cordarone] 200 mg PO BID 05/26/19 [History] Calcitriol [Rocaltrol] 0.25 mcg PO QMWF 05/26/19 [History] FLUoxetine HCl [Fluoxetine HCl] 40 mg PO DAILY 05/26/19 [History] Ascorbic Acid [Vitamin C] 500 mg PO 0630 tablet 05/30/19 [Rx] Docusate [Colace] 100 mg PO BID capsule 05/30/19 [Rx] Ondansetron ODT [Zofran ODT] 4 mg SL Q4HR PRN tab.rapdis 05/30/19 [Rx] Magnesium Oxide [Mag-Ox] 400 mg PO DAILY #7 tablet 06/06/19 [Rx] HYDROcodone/Acet 5/325 mg [[place] 5-325 mg] 1 tab PO QAM AND QHS 60 Days #120 tablet 06/29/19 [Rx] Metoprolol [Lopressor] 25 mg PO BID tablet 06/29/19 [Rx] ALPRAZolam [Xanax 0.25 MG Tablet] 0.25 mg PO Q6HR PRN 07/11/19 [History] Baclofen 5 mg PO HS 07/11/19 [History] Bumetanide [Bumex] 1.5 mg PO BID 07/11/19 [History] Bumetanide [Bumex] 1.5 mg PO DAILY 07/11/19 [History] Lisinopril [Zestril] 5 mg PO DAILY 07/11/19 [History] Nystatin POWDER [Nystop] 1 appl TP BID 07/11/19 [History] Digoxin [Lanoxin] 0.125 mg PO 2XW 07/16/19 [History] Levothyroxine [Synthroid] 125 mcg PO 0630 07/16/19 [History] Allergy/AdvReac Type Severity Reaction Status Date / Time amlodipine [From Norvasc] Allergy Severe Swelling Verified 07/16/19 21:05 of Lip/Tongue/Throat carbamazepine [From Tegretol] Allergy Mild rash/bliste Verified 07/16/19 21:05 rs ciprofloxacin [From Cipro] Allergy Mild Rash Verified 07/16/19 21:05 nitrofurantoin Allergy Mild Rash Verified 07/16/19 21:05 [From Macrobid] Sulfa (Sulfonamide Allergy Mild Rash Verified 07/16/19 21:05 Antibiotics) sulfamethoxazole Allergy Mild Rash Verified 07/16/19 21:05 [From Bactrim] trimethoprim [From Bactrim] Allergy Mild Rash Verified 07/16/19 21:05 Iodinated Contrast Media Allergy See Verified 07/16/19 21:05 [Iodinated Contrast- Oral Comments and IV Dye] acetaminophen [From Percocet] AdvReac Mild Confusion Verified 07/16/19 21:05 meperidine [From Demerol] AdvReac Mild Vomiting Verified 07/16/19 21:05 oxycodone [From Percocet] AdvReac Mild Confusion Verified 07/16/19 21:05 promethazine [From Phenergan] AdvReac Mild Vomiting Verified 07/16/19 21:05 NSAIDS (Non-Steroidal AdvReac Unknown D/T KIDNEY Verified 07/16/19 21:05 Anti-Inflamma DYSFUNCTION All Systems PM: A 10-system review of systems was performed and is negative for pertinent findings except as documented above in the HPI. Review of systems: unabe to obtain accurately patient encephalic - Constitutional Vitals: Temp Pulse Resp BP Pulse Ox 99.3 F 61 22 104/76 97 07/18/19 23:30 07/19/19 02:00 07/19/19 02:00 07/19/19 02:00 07/19/19 02:00 Exam: General Appearance: Appearing as age, mal-nourished in mild acute distress. Head: Atraumatic normocephalic Skin: Normal texture, dry turgor, warm, dry mucus membranes Eyes: Conjunctivae not pale with no erythema, drainage, or ulcers. Anicteric. Neck: No Lymphadenopathy in the anterior/posterior cervical chain. No thyromegaly, masses or ulcers. Trachea midline. Heart: RRR, no murmurs. Capillary refill 4 seconds Lungs: mild accessory muscle usage, lungs clear to auscultation bilaterally, no wheezes subtle basilar rhonchi Extremities: 1+ Bl pitting edema, no clubbing, cyanosis, or ulcers. Abdomen: Non-distended, normoactive bowel sounds. non-tender to palpation, no hepatomegally. No guarding. Neuro: AOx1 with no focal deficits. very delayed in responding. MSK: Strength 4/5 Upper extremity equal bilaterally. Strength 4/5 Lower extremity equal bilaterally Internal Med - H&P Results - Labs CBC & Chem 7: 07/19/19 01:37 07/19/19 01:29 Labs: Short CBC 07/19/19 Range/Units 01:37 WBC 16.7 H (4.3-11.1) K/mcL Hgb 9.5 L (11.5-15.4) g/dL Hct 30.4 L (35.3-44.9) % Plt Count 238 (140-400) K/mcL Neutrophils # 14.4 H (1.6-8.9) K/mcL BMP 07/19/19 01:29 Sodium 130 L Potassium 5.7 H Chloride 94 L Carbon Dioxide 23 BUN 99 H Creatinine 4.47 H Glucose 143 H Calcium 8.2 L Cardiac Enzymes 07/19/19 Range/Units 01:29 Troponin I 0.08 H* (< 0.04) ng/mL Liver Function 07/19/19 Range/Units 01:29 Total Bilirubin 0.9 (0.3-1.0) mg/dL AST 21 (13-39) Units/L ALT 5 L (7-52) Units/L Alkaline Phosphatase 120 H (34-104) Units/L Albumin 3.1 L (3.5-5.7) g/dL Urine 07/19/19 Range/Units 02:19 Urine Color Dark Yellow (Yellow) Urine Clarity Turbid A (Clear) Urine pH 5.0 (5.0-8.0) pH Units Ur Specific [place] 1.029 H (1.010-1.025) Urine Protein 100 H (Neg-Trace) mg/dL Urine Glucose (UA) Normal (Normal) mg/dL - Summary of Assessment and Plan Summary of Assessment and Plan: 1.Encephalopathy: Etiology unclear likely multi-factorial. CT head pending. CMP, CBC, Lactic acid, TSH Continue to monitor. 2.Acute Hypoxic Respiratory failure: Baseline on RA currently on 3L NC. Etiology unclear-remote history of PNA. responsive to O2 sating 97% on 3L. Procalcitonin, CXR, Strep AG, legionella ordered. Azithromycin and ceftriaxone. 3.Acute on chronic Renal Failure: Unresponsive to fluid. urine oupute continue to be low Nephrology consultation 4.Hypovolemic Hyponatremia: One L fluid given with recheck 5.Macrocytic Anemia: B12, folate orderred. Retic count to check for acute blood loss. Recheck in the AM. No sign of bleeding while in the ICU. Typed and screened due to concerning history of bright blood rectal bleeding. 6.Hyperkalemia: 2/2 Renal failure: Continue to monitor no EKG changes. 7.Hyperglycemia with no AG: SubQ ISS 8.Elevated troponin: No chest pain. my interpretation of EKG showing Ventricular paced ryhthm with sgarbossa criteria is 2. Cardiology consultation. 9.elevated ALP: GGT orderred. DVT prophylaxis: heparin. dispo: likely stay > 2 days. - Time Spent With Patient Total time spent is greater than 40 minutes 50% in coordination of care (as documented) at patient's floor/unit and/or counseling patient: Greater than 35 minutes - VTE Reasons for not Prescribing Prophylaxis: Medical contraindication
[2019-07-19] MEDS ORDERED: cefTRIAXone 1,000 MG in Water for inj. (sterile) 10 ML IVPB ONE (03:27)
[2019-07-19] MEDS ORDERED: Azithromycin 500 MG in 0.9 % Sodium Chloride 250 ML IVPB SCH (04:00)
[2019-07-19] MEDS ORDERED: Dextrose Gel 15 GM/37.5 ML TUBE PO PRN ×2 (04:24)
[2019-07-19] MEDS ORDERED: D5% in Water 1,000 ML IVC PRN (04:24)
[2019-07-19] MEDS ORDERED: *HR* Dextrose 50 % in Water (Syg) 50 ML SYRINGE IVP PRN (04:24)
[2019-07-19 04:30] LABS: Procalcitonin 0.44 ng/mL (0.00-0.15)
[2019-07-19 04:38] LABS: Thyroid Stimulating Hormone 11.515 mcIU/mL (0.340-5.600)
[2019-07-19 04:51] LABS: Digoxin 1.3 ng/mL (0.8-2.0)
[2019-07-19 08:41] LABS: Estimated Average Glucose 171 mg/dl
[2019-07-19] MEDS: Insulin LISPRO 300 UNITS/3 ML VIAL SQ SCH ×3 (08:44→16:47)
[2019-07-19] MEDS ORDERED: Furosemide 80 MG in 0.9 % Sodium Chloride 50 ML IV SCH (08:45)
--- NOTE | 2019-07-19 08:48 | Internal Med Progress Note ---
<Shon Kulkarni F - Last Filed: 07/19/19 12:58> Hospitalist Progress Note - Encounter Date of Encounter: 07/19/19 Time of Encounter: 08:45 - Subjective Interval History: Patient was seen and examined at bedside. No acute events overnight. Patient is complaining of generalized malaise, diffuse abdominal pain, diarrhea every time she coughs. Has increased swelling of the bilateral lower extremities. Today, patient is alert and oriented 3. Conversing normally. She otherwise denies any chest pain, shortness of breath, palpitations, nausea, vomiting, fevers, chills. - Exam Vitals: Temp Pulse Resp BP Pulse Ox 98.2 F 61 17 116/49 94 07/19/19 07:49 07/19/19 08:00 07/19/19 08:00 07/19/19 08:00 07/19/19 08:00 Exam: GEN: Ill-appearing, NAD, conversant. HEAD: Normocephalic, atraumatic. EYES: PERRL, EOMI, anicteric. ENT: MMM. oropharynx without erythema or drainage. NECK: Supple. No LAD. No stiffness or restricted ROM. No tracheal deviation. HEART: Regular rate and regular rhythm, normal S1/S2, no m/r/g. LUNGS: Bilateral crackles at lung bases, poor inspiratory effort. ABDO: Soft, nontender, nondistended with active bowel sounds. : No suprapubic tenderness or CVA tenderness. BACK: No obvious stepoffs or deformities. EXT: Without cyanosis, clubbing. 2+ pitting edema bilateral extremities, t daina to palpation. SKIN: Warm and dry without any rash. NEURO: Grossly nonfocal. Alert and oriented, moving all 4 extremities. CN not formally tested but appear grossly intact. PSYCH: Normal affect, no depressed or anxious mood. - Assessment and Plan (1) Dyspnea Current Visit: Yes Status: Acute Assessment and Plan: Acute hypoxic respiratory failure due to possible PNA, CHF exacerbation, metabolic disturbances. Typically no home O2 requirement, now on 2-3 L NC. Strep and legionella antigen neg. Plan: - Blood/urine cx pending - Started on azithromycin and cefepime on 07/19 (also for UTI) - Stopped ceftriaxone - Will continue to monitor and wean off O2 if possible - CXR showed cardiomegaly, pulm edema, bibasilar atelectasis (2) Acute metabolic encephalopathy Current Visit: Yes Status: Acute Assessment and Plan: Cause multifactorial likely due to possible PNA, UTI, electrolyte abnormalities. Plan: - Mentation improved, AAOx3, still feels more confused - CT head pending - Continue to treat infection, monitor/replete electrolytes (3) Acute renal failure (ARF) Current Visit: Yes Status: Acute Assessment and Plan: Hx of CKD III, worsening renal function. Cr of 4.47 today. Was hyponatremic, given 1 L NS initially. Likely due to dehydration and poor PO intake. Plan: - Nephrology consulted - Recs for 1L half NS with bicarb - Continue to assess renal fcn with BMP - Replete electrolytes as necessary - Avoid nephrotoxic meds, strict I/Os - Retroperitoneal ultrasound - Hyperkalemia of 5.7; no ECG changes; give 15g kayexalate - ACTH stim test tomorrow morning d/t low Na, hyperK (4) UTI (urinary tract infection) Current Visit: Yes Status: Acute Assessment and Plan: Urinalysis evidence of UTI with large LE and many bacteria. Culture hx of yeast, E.coli MDRO. Plan: - Urine culture pending - Treat with cefepime (5) CHF (congestive heart failure) Current Visit: Yes Status: Chronic Assessment and Plan: Hx of CHF. Last echo LVEF 50% with severe pHTN. Plan: - Stable, fluid overload on exam - Will continue to monitor with gentle fluids to imrpove kidney function (6) Diabetes Current Visit: Yes Status: Chronic Assessment and Plan: Hyperglycemic. No anion gap. Plan: - On SSI (7) Anemia Current Visit: Yes Status: Chronic Assessment and Plan: Macrocytic anemia. Hgb stable. Plan: - B12/folate pending - Will cont to monitor with CBC (8) Diarrhea Current Visit: Yes Status: Acute Assessment and Plan: Persistent diarrhea. - Cdiff toxin pending DVT Prophylaxis: DVT PPX: hep SQ Glycemic control: SSI Activity: as tolerated Fluids: see above Electrolytes: replete as necessary Nutrition: renal diet GI ppx: PPI Lines: powerglide, 1xPIV, monae Consults: cardiology, nephrology, IV Code: FULL CODE Dispo: TF to floor - Time Spent with Patient Total time spent is greater than 50% in coordination of care (as documented) at patient's floor/unit and/or counseling patient: less than 15 minutes Plan of Care Discussed with: patient Internal Medicine: Result - Labs CBC & Chem 7: 07/19/19 01:37 07/19/19 09:07 Labs: Short CBC 07/19/19 Range/Units 01:37 WBC 16.7 H (4.3-11.1) K/mcL Hgb 9.5 L (11.5-15.4) g/dL Hct 30.4 L (35.3-44.9) % Plt Count 238 (140-400) K/mcL Neutrophils # 14.4 H (1.6-8.9) K/mcL BMP 07/19/19 01:29 Sodium 130 L Potassium 5.7 H Chloride 94 L Carbon Dioxide 23 BUN 99 H Creatinine 4.47 H Glucose 143 H Calcium 8.2 L Cardiac Enzymes 07/19/19 07/19/19 Range/Units 01:29 06:15 Troponin I 0.08 H* 0.08 H* (< 0.04) ng/mL Liver Function 07/19/19 Range/Units 01:29 Total Bilirubin 0.9 (0.3-1.0) mg/dL AST 21 (13-39) Units/L ALT 5 L (7-52) Units/L Alkaline Phosphatase 120 H (34-104) Units/L Albumin 3.1 L (3.5-5.7) g/dL Urine 07/19/19 Range/Units 02:19 Urine Color Dark Yellow (Yellow) Urine Clarity Turbid A (Clear) Urine pH 5.0 (5.0-8.0) pH Units Ur Specific [place] 1.029 H (1.010-1.025) Urine Protein 100 H (Neg-Trace) mg/dL Urine Glucose (UA) Normal (Normal) mg/dL - ABG Interpretation ABG results: PT/INR, D-dimer PT 17.7 Seconds (9.4-12.1) H 07/19/19 01:29 - Impressions Impressions Chest X-Ray 07/19/19 03:12 IMPRESSION: 1. Stable left chest wall pacer. 2. Cardiomegaly with worsening pulmonary edema including bilateral effusions. 3. Bibasilar atelectasis. D/ / 07/19/2019 08:35:18 Karla Sandy MD / Rosy Darby Interpreting Provider: Karla Sandy MD - VTE Reasons for not Prescribing Prophylaxis: Medical contraindication Consult Discharge Plan - Plan Referrals: NONE,PCP [Primary Care Provider] - <Jerad Swain - Last Filed: 07/19/19 15:04> Hospitalist Progress Note - Encounter Date of Encounter: 07/19/19 Time of Encounter: 08:10 - Exam Vitals: Temp Pulse Resp BP Pulse Ox 97.9 F 64 18 97/51 95 07/19/19 11:57 07/19/19 14:00 07/19/19 14:00 07/19/19 14:00 07/19/19 14:00 Exam: General: Alert, confused, disoriented, NAD HEENT: no icterus, neck supple, dry mucosa Chest: scattered rhonchi and bibasilar crackles; RRR; distant heart sounds Abdomen: soft, NT, ND, no HSMG; + BS Ext: 3-4+ edema; cellulitis changes on left pre-tibial area; no weeping or open sores noted Neuro: confused and disoriented, awake, moves all four extremities Skin: warm and dry; cellulitis changes in left pretibital area; venous stasis changes in both lower legs - Time Spent with Patient Total time spent is greater than 50% in coordination of care (as documented) at patient's floor/unit and/or counseling patient: Plan of Care Discussed with: other (Dr. Kulkarni, [facility] team, patient (but she is disoriented)) Internal Medicine: Result - Labs CBC & Chem 7: 07/19/19 01:37 07/19/19 12:52 Labs: Short CBC 07/19/19 Range/Units 01:37 WBC 16.7 H (4.3-11.1) K/mcL Hgb 9.5 L (11.5-15.4) g/dL Hct 30.4 L (35.3-44.9) % Plt Count 238 (140-400) K/mcL Neutrophils # 14.4 H (1.6-8.9) K/mcL BMP 07/19/19 07/19/19 07/19/19 01:29 09:07 12:52 Sodium 130 L 131 L 131 L Potassium 5.7 H 5.5 H 5.0 Chloride 94 L 94 L 97 L Carbon Dioxide 23 21 L 23 BUN 99 H 99 H 98 H Creatinine 4.47 H 4.48 H 4.29 H Glucose 143 H 135 H 100 Calcium 8.2 L 8.1 L 7.8 L Cardiac Enzymes 07/19/19 07/19/19 07/19/19 Range/Units 01:29 06:15 12:52 Troponin I 0.08 H* 0.08 H* 0.09 H* (< 0.04) ng/mL Liver Function 07/19/19 Range/Units 01:29 Total Bilirubin 0.9 (0.3-1.0) mg/dL AST 21 (13-39) Units/L ALT 5 L (7-52) Units/L Alkaline Phosphatase 120 H (34-104) Units/L Albumin 3.1 L (3.5-5.7) g/dL Urine 07/19/19 Range/Units 02:19 Urine Color Dark Yellow (Yellow) Urine Clarity Turbid A (Clear) Urine pH 5.0 (5.0-8.0) pH Units Ur Specific [place] 1.029 H (1.010-1.025) Urine Protein 100 H (Neg-Trace) mg/dL Urine Glucose (UA) Normal (Normal) mg/dL - ABG Interpretation ABG results: PT/INR, D-dimer PT 17.7 Seconds (9.4-12.1) H 07/19/19 01:29 - Impressions Impressions Chest X-Ray 07/19/19 03:12 IMPRESSION: 1. Stable left chest wall pacer. 2. Cardiomegaly with worsening pulmonary edema including bilateral effusions. 3. Bibasilar atelectasis. D/ / 07/19/2019 08:35:18 Karla Sandy MD / Rosy Darby Interpreting Provider: Karla Sandy MD - Attending Attestation I reviewed the patient's chart, interviewed patient and family, and examined her independently this morning. I also discussed the patient case with Dr. Kulkarni and MDR team. Presently, patient is alert, oriented to self only, and confused/disoriented otherwise. She is not in any apparent distress other than some mild dyspnea. She has diffuse edema and some mild cellulitis changes in her left lower extremity. Of note, she has acute renal failure on top of her chronic kidney disease. Additionally, she has CHF and severe pulmonary hypertension based upon recent echocardiogram. My initial thoughts were to slowly diurese with Lasix drip. However, after speaking with nephrology, Dr. Leon, he recommends proceeding with low-dose continuous IV fluid hydration followed by likely Lasix in the coming day or two thereafter. He recommends withholding Lasix at this time given her relative pulmonary and hemodynamic stability. As such, we stopped Lasix drip and ordered IV fluids per his recommendations. I am not convinced she has pneumonia or any kind of bronchitis. I will therefore stop her Zithromax continue her on cefepime monotherapy for UTI and cellulitis. If her cellulitis does not improve and/or worsens, she may need vancomycin. However, because of acute kidney injury/failure, I am reluctant to start vancomycin at this time. We will monitor her clinically and act accordingly. Other than my comments above and documented exam findings, I agree with Dr. Kulkarni's assessment and plan as well as the recommendations of the MDR team. <Shon Kulkarni F - Last Filed: 07/19/19 12:58> (1) Dyspnea Qualifiers: Dyspnea type: shortness of breath Qualified Code(s): R06.02 - Shortness of breath; R06.00 - Dyspnea, unspecified; R06.01 - Orthopnea (3) Acute renal failure (ARF) Qualifiers: Acute renal failure type: unspecified Qualified Code(s): N17.9 - Acute kidney failure, unspecified (4) UTI (urinary tract infection) Qualifiers: Urinary tract infection type: site unspecified Hematuria presence: without hematuria Qualified Code(s): N39.0 - Urinary tract infection, site not specified (5) CHF (congestive heart failure) Qualifiers: Heart failure type: diastolic Heart failure chronicity: acute on chronic Qualified Code(s): I50.33 - Acute on chronic diastolic (congestive) heart failure (6) Diabetes Qualifiers: Diabetes mellitus type: type 2 Diabetes mellitus watermaster insulin use: with half-way use Diabetes mellitus complication status: with kidney complications Diabetes mellitus complication detail: with chronic kidney disease Chronic kidney disease stage: stage 4 (severe) Qualified Code(s): E11.22 - Type 2 diabetes mellitus with diabetic chronic kidney disease; N18.4 - Chronic kidney disease, stage 4 (severe); Z79.4 - intermediate accountant (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 (7) Anemia Qualifiers: Anemia type: unspecified type Qualified Code(s): D64.9 - Anemia, unspecified
[2019-07-19 09:36] LABS: Calcium 8.1 mg/dL (8.6-10.3); Potassium 5.5 mEq/L (3.5-5.1)
--- NOTE | 2019-07-19 10:22 | Nephrology Consult Note ---
Date of Encounter: 07/19/19 Time of Encounter: 10:21 Assessment and Plan (1) Acute kidney injury superimposed on CKD Current Visit: Yes Status: Acute Baseline is CKD III with Dr. Song in the office. [place] multifactorial related to dehydration and poor PO intake at home. Patient has severe Pulmonary HTN. Give 1 liter .45 with 75 meqs HCO3 @75/hr x 1 liter. GFR is 10 today. Retroperitoneal US ordered. Uric Acid/CK ordered for in the am. Avoid Nephrotoxins and renal dose. Strict I/O (2) Hyperkalemia Current Visit: Yes Status: Acute K is 5.7. 15 kayexalate ordered, should also improve with hydration. (3) Diarrhea Current Visit: Yes Status: Acute Supportive measures. Qualifiers: Qualified Code(s): R19.7 - Diarrhea, unspecified (4) Dyspnea Current Visit: Yes Status: Acute Stable for now, monitor closely with IVF. Qualifiers: Dyspnea type: shortness of breath Qualified Code(s): R06.02 - Shortness of breath; R06.00 - Dyspnea, unspecified; R06.01 - Orthopnea History of Present Illness - Reason for Consult Consult date: 07/19/19 Acute Kidney Injury, Chronic Kidney Disease Requesting physician: Manuelito Viramontes - Chief Complaint HTN,CHD - History of Present Illness Ms. Magallanes is a 79 year old female who presented from outside facility to ED for shortness of breath for " a couple of days". She reports it was getting harder and harder to breath. Denies wheezes. Denies chest pain. Admits to diarrhea since coming to the hospital. Admits to one episode of emesis as well. Reports at home she was not having any nausea,vomiting, diarrhea or poor PO intake. She states otherwise she was feeling normal. PMH: arthritis, asthma, atrial fibrillation, pulm HTN, CHF, COPD, coronary artery disease, DVT, diabetes, fibromyalgia, hyperlipidemia, hypertension, thyroid disease, CKD 3. She is a patient of Dr. Song in the office. Denies etoh, tobacco use or illicit drug use. Denies FH of CKD or HD. Past Med Surg Social Fam HX - Past Medical History Medical history: arthritis, asthma, atrial fibrillation, cancer, CHF, COPD, coronary artery disease, DVT, diabetes, fibromyalgia, hyperlipidemia, hypertension, renal disease, thyroid disease, other Additional medical history: skin cancer Psychiatric history: depression - Past Surgical History Surgical History: pacemaker Additional surgical history: parathyroidectomy,. Right knee - Social History Smoking Status: Former smoker Smokeless Tobacco Status: No Alcohol use: none Drug use: none - Family History Mother Adopted: No Living Status: Hx Family Cardiac Disorders: Yes Hx Family Respiratory Disorders: Yes (COPD) Hx Family Cancer: Yes (lung, breast) Hx Family GI Disorders: No Hx Family Endocrine Disorder: No Hx Family Neuromuscular Disorders: No Hx Family Neurologic Disorders: Yes Hx Family HEENT Disorders: No Hx Family Autoimmune Disorders: Yes (non hygkins lymphoma) Medications and Allergies Carbidopa/Levodopa 25/100 [Sinemet 25/100] 1 tab PO BID 03/07/16 [History] Fluticasone Propionate Nasal [Flonase] 2 spray NS BID PRN 03/07/16 [History] Ustekinumab [Stelara (For Outpatient Infusion)] 90 mg SQ [id number] 03/07/16 [History] Vitamin B Complex [B Complex] 1 tab PO QPM 03/07/16 [History] Atorvastatin [Lipitor] 40 mg PO HS 05/18/17 [History] Albuterol Sulfate [Proair Hfa] 2 puff IH Q4H PRN 03/02/18 [History] Cholecalciferol (D-3) [Vitamin D] 1,000 unit PO DAILY tablet 11/18/18 [Rx] Loperamide [Imodium] 2 mg PO QID PRN 01/10/19 [History] Umeclidinium [place] [Incruse Ellipta] 1 puff IH DAILY 01/10/19 [History] Budesonide/Formoterol 80/4.5 [Symbicort 80/4.5] 2 puff IH BIDRESP #1 inhaler 02/21/19 [Rx] Isosorbide MONOnitrate (24 HR) [Imdur] 120 mg PO DAILY #60 tab.er.24h 02/21/19 [Rx] Amiodarone [Cordarone] 200 mg PO BID 05/26/19 [History] Calcitriol [Rocaltrol] 0.25 mcg PO QMWF 05/26/19 [History] FLUoxetine HCl [Fluoxetine HCl] 40 mg PO DAILY 05/26/19 [History] Ascorbic Acid [Vitamin C] 500 mg PO 0630 tablet 05/30/19 [Rx] Docusate [Colace] 100 mg PO BID capsule 05/30/19 [Rx] Ondansetron ODT [Zofran ODT] 4 mg SL Q4HR PRN tab.rapdis 05/30/19 [Rx] Magnesium Oxide [Mag-Ox] 400 mg PO DAILY #7 tablet 06/06/19 [Rx] HYDROcodone/Acet 5/325 mg [[place] 5-325 mg] 1 tab PO QAM AND QHS 60 Days #120 tablet 06/29/19 [Rx] Metoprolol [Lopressor] 25 mg PO BID tablet 06/29/19 [Rx] ALPRAZolam [Xanax 0.25 MG Tablet] 0.25 mg PO Q6HR PRN 07/11/19 [History] Baclofen 5 mg PO HS 07/11/19 [History] Bumetanide [Bumex] 1.5 mg PO BID 07/11/19 [History] Lisinopril [Zestril] 5 mg PO DAILY 07/11/19 [History] Nystatin POWDER [Nystop] 1 appl TP BID 07/11/19 [History] Levothyroxine [Synthroid] 125 mcg PO 0630 07/16/19 [History] Acetaminophen [Tylenol] 325 mg PO Q6HR PRN 07/19/19 [History] Allopurinol [Zyloprim 100 MG] 200 mg PO DAILY 07/19/19 [History] Digoxin [Lanoxin] 0.125 mg PO MOTH 07/19/19 [History] Allergy/AdvReac Type Severity Reaction Status Date / Time amlodipine [From Norvasc] Allergy Severe Swelling Verified 07/16/19 21:05 of Lip/Tongue/Throat carbamazepine [From Tegretol] Allergy Mild rash/bliste Verified 07/16/19 21:05 rs ciprofloxacin [From Cipro] Allergy Mild Rash Verified 07/16/19 21:05 nitrofurantoin Allergy Mild Rash Verified 07/16/19 21:05 [From Macrobid] Sulfa (Sulfonamide Allergy Mild Rash Verified 07/16/19 21:05 Antibiotics) sulfamethoxazole Allergy Mild Rash Verified 07/16/19 21:05 [From Bactrim] trimethoprim [From Bactrim] Allergy Mild Rash Verified 07/16/19 21:05 Iodinated Contrast Media Allergy See Verified 07/16/19 21:05 [Iodinated Contrast- Oral Comments and IV Dye] acetaminophen [From Percocet] AdvReac Mild Confusion Verified 07/16/19 21:05 meperidine [From Demerol] AdvReac Mild Vomiting Verified 07/16/19 21:05 oxycodone [From Percocet] AdvReac Mild Confusion Verified 07/16/19 21:05 promethazine [From Phenergan] AdvReac Mild Vomiting Verified 07/16/19 21:05 NSAIDS (Non-Steroidal AdvReac Unknown D/T KIDNEY Verified 07/16/19 21:05 Anti-Inflamma DYSFUNCTION Review of Systems All Systems review (narrative): The remainder of the systems are negative. Constitutional: fatigue, no chills, no fever(s) Cardiovascular: dyspnea, dyspnea on exertion, edema, no chest pain Respiratory: no cough Exam - Vital Signs Vital signs: Initial Vital Signs Temp Pulse Resp BP Pulse Ox 99.3 F 68 16 127/61 96 07/18/19 23:30 07/18/19 23:30 07/18/19 23:30 07/18/19 23:30 07/18/19 23:30 Vital Signs - Last 8 Hours Temp Pulse Resp BP Pulse Ox 07/19/19 09:00 63 22 117/99 93 07/19/19 08:00 73 17 116/49 94 07/19/19 07:49 98.2 F 07/19/19 07:00 66 20 101/42 95 07/19/19 06:00 72 20 116/49 91 07/19/19 05:00 66 14 121/51 93 07/19/19 04:00 98.0 F 62 18 112/63 94 07/19/19 03:00 63 14 98/59 94 Intake and Output 07/18/19 07/19/19 07/19/19 23:59 07:59 15:59 Intake Total 1260 / 1260 Output Total 100 / 100 50 / 50 Balance -100 / -100 1210 / 1210 Intake: IV Fluids 1260 / 1260 0.9 % Sodium Chloride 1,000 ML 1000 / 1000 @ 999 mls/hr IVC .Q1H1M ONE Rx# :[id number] Zithromax 500 MG In 0.9 % 250 / 250 Sodium Chloride 250 ML @ 252 mls/hr IVPB Q24H [facility] Rx#: [id number] Rocephin 1,000 MG In Water for inj. (sterile) 10 ML @ 300 mls/ hr IVPB ONCE ONE Rx#:[id number] Output: Catheter 100 / 100 50 / 50 Other: Stool Size Moderate Stool Consistency liquid Stool Color Brown # Bowel Movements 2 Weight 116.9 kg Blood Glucose* 169 159 - General Appearance General appearance: well-developed, well-nourished EENT: ATNC, hearing intact, vision intact Neck: supple Respiratory: rhonchi Cardiology: edema (Non pitting edema noted to all extremeities.), normal S1, normal S2 Gastrointestinal: normoactive bowel sounds, no tenderness, no guarding Integumentary: no rash, warm and dry Neurologic: alert and oriented x3 Musculoskeletal: no deformities, no erythema Psychiatric: mood/affect appropriate, cooperative Results - Lab Results 07/19/19 01:37 07/19/19 12:52 Most recent lab results 07/19/19 07/19/19 07/19/19 01:29 02:22 09:07 Calcium 8.2 L 8.1 L Phosphorus 7.2 H Magnesium 2.0 Urine Sodium 31.8 Consult Discharge Plan - Plan Referrals: NONE,PCP [Primary Care Provider] -
--- NOTE | 2019-07-19 10:56 | Cardiology Consult Note ---
Date of Encounter: 07/19/19 Time of Encounter: 09:15 Assessment and Plan (1) Elevated troponin Current Visit: Yes Status: Acute Troponins .08 x2, likely demand ischemia in the setting of [place]. Creatinine 4.47 today. EKG reviewed- patient is V paced. Denies CP. Non diagnostic for ACS. Cardiac rehab not warranted. Would not recommend ischemic eval at this time. Will obtain an Echocardiogram- if no significant changes, will sign off. (2) Coronary artery disease Current Visit: No Status: Chronic LHC 01/15/19: severe 1v CAD, successful PTCA in the proximal LAD, moderate Non obstructive CAD in the RCA Echo 01/10/19: LVEF 50-55%. Indeterminate diastolic function. Normal right ventricular structure and function. Mild mitral regurgitation. Moderate tricuspid regurgitation. Mild pulmonic regurgitation. Severe pulmonary hypertension. Continue statin, BB, ACEi & Imdur. Patient not currently taking ASA d/t recent GI bleed. Qualifiers: Coronary Disease-Associated Artery/Lesion type: [place] artery [place] vs. transplanted heart: [place] heart Associated angina: without angina Qualified Code(s): I25.10 - Atherosclerotic heart disease of [place] coronary artery without angina pectoris Discussion w patient/family: The assessment and plan as outlined above was discussed with the patient and/or family members who expressed understanding and agreement. All questions were answered. Thank you for involving us in the care of your patient. Please call with any questions. The above assessment and plan will be discussed with Dr. Morrison and I will make changes as necessary. History of Present Illness Consult date: 07/19/19 Consult reason: Elevated troponins History of present illness: Ms. Magallanes is a 79 year old female presented as a transfer from [place]. Patient urgently admitted to the ED for SOB that has worsening. Patient was noted to be acute on chronic renal failure with chest x-ray showing mild pulmonary edema. While patient was a MedSurg patient has been getting IV fluids and IV diuresis with renal function declining and creatinine rising to 4.23. Creatinine today is 4.47. Limited history obtained from patient. Oriented to place and self but not time and situation. Past Med Surg Social Fam HX - Past Medical History Medical history: arthritis, asthma, atrial fibrillation, cancer, CHF, COPD, coronary artery disease, DVT, diabetes, fibromyalgia, hyperlipidemia, hypertension, renal disease, thyroid disease, other Additional medical history: skin cancer Psychiatric history: depression - Past Surgical History Surgical History: pacemaker Additional surgical history: parathyroidectomy,. Right knee - Social History Smoking Status: Former smoker Smokeless Tobacco Status: No Alcohol use: none Drug use: none - Family History Mother Adopted: No Living Status: Hx Family Cardiac Disorders: Yes Hx Family Respiratory Disorders: Yes (COPD) Hx Family Cancer: Yes (lung, breast) Hx Family GI Disorders: No Hx Family Endocrine Disorder: No Hx Family Neuromuscular Disorders: No Hx Family Neurologic Disorders: Yes Hx Family HEENT Disorders: No Hx Family Autoimmune Disorders: Yes (non hygkins lymphoma) Medications and Allergies Carbidopa/Levodopa 25/100 [Sinemet 25/100] 1 tab PO BID 03/07/16 [History] Fluticasone Propionate Nasal [Flonase] 2 spray NS BID PRN 03/07/16 [History] Ustekinumab [Stelara (For Outpatient Infusion)] 90 mg SQ [id number] 03/07/16 [History] Vitamin B Complex [B Complex] 1 tab PO QPM 03/07/16 [History] Atorvastatin [Lipitor] 40 mg PO HS 05/18/17 [History] Albuterol Sulfate [Proair Hfa] 2 puff IH Q4H PRN 03/02/18 [History] Cholecalciferol (D-3) [Vitamin D] 1,000 unit PO DAILY tablet 11/18/18 [Rx] Loperamide [Imodium] 2 mg PO QID PRN 01/10/19 [History] Umeclidinium [place] [Incruse Ellipta] 1 puff IH DAILY 01/10/19 [History] Budesonide/Formoterol 80/4.5 [Symbicort 80/4.5] 2 puff IH BIDRESP #1 inhaler 02/21/19 [Rx] Isosorbide MONOnitrate (24 HR) [Imdur] 120 mg PO DAILY #60 tab.er.24h 02/21/19 [Rx] Amiodarone [Cordarone] 200 mg PO BID 05/26/19 [History] Calcitriol [Rocaltrol] 0.25 mcg PO QMWF 05/26/19 [History] FLUoxetine HCl [Fluoxetine HCl] 40 mg PO DAILY 05/26/19 [History] Ascorbic Acid [Vitamin C] 500 mg PO 0630 tablet 05/30/19 [Rx] Docusate [Colace] 100 mg PO BID capsule 05/30/19 [Rx] Ondansetron ODT [Zofran ODT] 4 mg SL Q4HR PRN tab.rapdis 05/30/19 [Rx] Magnesium Oxide [Mag-Ox] 400 mg PO DAILY #7 tablet 06/06/19 [Rx] HYDROcodone/Acet 5/325 mg [[place] 5-325 mg] 1 tab PO QAM AND QHS 60 Days #120 tablet 06/29/19 [Rx] Metoprolol [Lopressor] 25 mg PO BID tablet 06/29/19 [Rx] ALPRAZolam [Xanax 0.25 MG Tablet] 0.25 mg PO Q6HR PRN 07/11/19 [History] Baclofen 5 mg PO HS 07/11/19 [History] Bumetanide [Bumex] 1.5 mg PO BID 07/11/19 [History] Lisinopril [Zestril] 5 mg PO DAILY 07/11/19 [History] Nystatin POWDER [Nystop] 1 appl TP BID 07/11/19 [History] Levothyroxine [Synthroid] 125 mcg PO 0630 07/16/19 [History] Acetaminophen [Tylenol] 325 mg PO Q6HR PRN 07/19/19 [History] Allopurinol [Zyloprim 100 MG] 200 mg PO DAILY 07/19/19 [History] Digoxin [Lanoxin] 0.125 mg PO MOTH 07/19/19 [History] Allergy/AdvReac Type Severity Reaction Status Date / Time amlodipine [From Norvasc] Allergy Severe Swelling Verified 07/16/19 21:05 of Lip/Tongue/Throat carbamazepine [From Tegretol] Allergy Mild rash/bliste Verified 07/16/19 21:05 rs ciprofloxacin [From Cipro] Allergy Mild Rash Verified 07/16/19 21:05 nitrofurantoin Allergy Mild Rash Verified 07/16/19 21:05 [From Macrobid] Sulfa (Sulfonamide Allergy Mild Rash Verified 07/16/19 21:05 Antibiotics) sulfamethoxazole Allergy Mild Rash Verified 07/16/19 21:05 [From Bactrim] trimethoprim [From Bactrim] Allergy Mild Rash Verified 07/16/19 21:05 Iodinated Contrast Media Allergy See Verified 07/16/19 21:05 [Iodinated Contrast- Oral Comments and IV Dye] acetaminophen [From Percocet] AdvReac Mild Confusion Verified 07/16/19 21:05 meperidine [From Demerol] AdvReac Mild Vomiting Verified 07/16/19 21:05 oxycodone [From Percocet] AdvReac Mild Confusion Verified 07/16/19 21:05 promethazine [From Phenergan] AdvReac Mild Vomiting Verified 07/16/19 21:05 NSAIDS (Non-Steroidal AdvReac Unknown D/T KIDNEY Verified 07/16/19 21:05 Anti-Inflamma DYSFUNCTION All Systems Review: The remainder of the systems were reviewed and are negative - Cardiovascular Cardiovascular: as per HPI, no chest pain at rest, no chest pain with exertion Physical Examination Vital Signs, Last 4 Hours Temp Pulse Resp BP Pulse Ox 07/19/19 10:00 62 18 115/58 95 07/19/19 09:00 63 22 117/99 93 07/19/19 08:00 73 17 116/49 94 07/19/19 07:49 98.2 F 07/19/19 07:00 66 20 101/42 95 HEENT: Atraumatic, Normocephaly, Mucus Membranes Moist Neck: No JVD, Normal carotid pulses Cardiac: Reg Rate and Rhythm, Normal S1 and S2, No Murmur Lungs: Normal Breath Sounds, No Wheeze, Rales, Rhonchi Neuro: Alert and responsive, No focal deficits noted Musculoskeletal: No Chest Wall Tenderness Extremities: Other (BLE +2 edema) Results 07/19/19 01:37 07/19/19 12:52 Lab Results 07/19/19 07/19/19 07/19/19 01:29 01:29 01:29 WBC Hgb Hct Plt Count INR 1.6 APTT 30.2 Sodium 130 L Potassium 5.7 H Chloride 94 L Carbon Dioxide 23 BUN 99 H Creatinine 4.47 H Glucose 143 H Calcium 8.2 L Magnesium 2.0 Total Bilirubin 0.9 AST 21 ALT 5 L Alkaline Phosphatase 120 H Troponin I 0.08 H* TSH 07/19/19 07/19/19 07/19/19 01:37 03:36 06:15 WBC 16.7 H Hgb 9.5 L Hct 30.4 L Plt Count 238 INR APTT Sodium Potassium Chloride Carbon Dioxide BUN Creatinine Glucose Calcium Magnesium Total Bilirubin AST ALT Alkaline Phosphatase Troponin I 0.08 H* TSH 11.515 H 07/19/19 09:07 WBC Hgb Hct Plt Count INR APTT Sodium 131 L Potassium 5.5 H Chloride 94 L Carbon Dioxide 21 L BUN 99 H Creatinine 4.48 H Glucose 135 H Calcium 8.1 L Magnesium Total Bilirubin AST ALT Alkaline Phosphatase Troponin I TSH - Imaging and Cardiology Chest Xray: report reviewed Echo: report reviewed Cardiac cath: report reviewed - EKG Interpretation EKG results cardiology: personally reviewed, ventricular paced rhythm Consult Discharge Plan - Plan Referrals: NONE,PCP [Primary Care Provider] -
[2019-07-19] MEDS ORDERED: Sodium Bicarbonate 75 MEQ in 0.45 % Sodium Chloride 1,000 ML IVC SCH (11:15)
[2019-07-19] MEDS ORDERED: WATER FOR INJ IVP SCH (12:00)
[2019-07-19] MEDS ORDERED: CEFEPIME HCL IVP SCH (12:00)
[2019-07-19 13:27] LABS: Calcium 7.8 mg/dL (8.6-10.3)
[2019-07-19] MEDS: *HR* Heparin 5,000 UNIT/ML VIAL SQ SCH ×2 (15:10→20:21)
[2019-07-19] MEDS ORDERED: *HR* Metoprolol 5 MG/5 ML VIAL IVP ONE (15:27)
--- NOTE | 2019-07-19 16:16 | Electrocardiograph Report ---
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
--- NOTE | 2019-07-19 16:23 | Electrocardiograph Report ---
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
[2019-07-19] MEDS ORDERED: Cefepime HCl 1,000 MG in Water for inj. (sterile) 10 ML IVP SCH (18:00)
[2019-07-20 04:02] LABS: Basophils # 0.1 K/mcL (0.0-0.2); Basophils % 0.5 %; Eosinophils # 0.5 K/mcL (0.0-0.6); Eosinophils % 3.1 %; Hematocrit 30.8 % (35.3-44.9); Hemoglobin 9.7 g/dL (11.5-15.4); Immature Granulocytes % 2.3 % (0-4); Lymphocytes # 0.5 K/mcL (0.6-4.6); Lymphocytes % 3.5 %; Mean Corpuscular HGB Conc 31.5 g/dL (31.6-35.5); Mean Corpuscular Hemoglobin 35.3 pg (28.0-33.3); Mean Platelet Volume 12.1 fL (9.4-12.4); Monocytes # 0.8 K/mcL (0.0-1.3); Monocytes % 5.3 %; Neutrophils # 12.8 K/mcL (1.6-8.9); Nucleated Red Blood Cells 0.2 /100 WBC (0); Platelet Count 264 K/mcL (140-400); Red Blood Count 2.75 M/mcL (3.82-4.97); Red Cell Distribution Width 18.8 % (11.5-14.5); Segmented Neutrophils % 85.3 %
[2019-07-20 04:11] LABS: INR 1.7; Prothrombin Time 18.9 Seconds (9.4-12.1)
[2019-07-20 04:14] LABS: Activated Partial Thrombo Time 30.2 Seconds (26.0-36.0)
[2019-07-20] MEDS: Desitin (Zinc Oxide) 56 GM TUBE TP PRN ×2 (04:21→06:00)
[2019-07-20 04:26] LABS: Uric Acid 3.7 mg/dL (2.3-7.6)
[2019-07-20 04:32] LABS: Albumin 3.1 g/dL (3.5-5.7); Bilirubin,Total 0.8 mg/dL (0.3-1.0); Calcium 8.3 mg/dL (8.6-10.3); Phosphorous 7.5 mg/dL (2.7-4.5); Potassium 5.2 mEq/L (3.5-5.1); Total Protein 6.1 g/dL (6.4-8.9); Troponin I 0.09 ng/mL (< 0.04)
[2019-07-20] MEDS ORDERED: Ondansetron ODT 4 MG TAB.RAPDIS SL PRN ×2 (04:56→16:13)
[2019-07-20] MEDS: *HR* Heparin 5,000 UNIT/ML VIAL SQ SCH ×4 (05:15→21:14)
[2019-07-20 05:20] LABS: Anisocytosis 1+ (Not Present)
[2019-07-20 05:21] LABS: Macrocytosis Present (Not Present); Platelet Estimate Normal (Normal); Polychromasia 1+ (Not Present)
[2019-07-20] MEDS: Pantoprazole 40 MG VIAL IVP SCH (05:21)
[2019-07-20] MEDS ORDERED: Acetaminophen 325 MG TABLET PO PRN ×2 (05:43→16:13)
[2019-07-20] MEDS ORDERED: Cosyntropin 250 MCG/2 ML VIAL IVP ONE (07:05)
[2019-07-20] MEDS: Insulin LISPRO 300 UNITS/3 ML VIAL SQ SCH ×3 (08:02→17:11)
--- NOTE | 2019-07-20 08:49 | Internal Med Progress Note ---
Hospitalist Progress Note - Encounter Date of Encounter: 07/20/19 Time of Encounter: 07:20 - Subjective Interval History: Despite IV hydration, her kidney function continues to remain poor. Oral intake has been minimal to none. She is very deconditioned and overall has a very poor prognosis. I discussed patient's goals and wishes -- she wishes to be full code. I explained to her that she has multiple co-morbidities and that long- term recovery is grim. I informed her that I would like to consult palliative care to start discussing goals of care, and she was receptive to that. I inquired about her wishes to proceed with dialysis if her kidney function does not improve and/or worsens, and she could not decide. Hemodynamically she has remained stable. We will try to transition her out of the ICU today to stepdown unit for ongoing care and management. She denies any chest pain. Her shortness of breath is at baseline. She has chronic edema/anasarca, which is not improving. - Exam Vitals: Temp Pulse Resp BP Pulse Ox 97.8 F 63 21 113/80 98 07/20/19 07:25 07/20/19 06:00 07/20/19 06:00 07/20/19 06:00 07/20/19 06:00 Exam: General: anasarca; weak, frail, alert, awake, responds appropriately HEENT: dry mucosa, neck supple, full ORm. Chest: Coarse rhonchi, diminished basilar breath sounds with few rales, no wheezes. RRR; palpable pacer Abdomen: Soft, obese, being, ND, NT, NO HSMG. Ext: 3-4 + edema up to abdomen; cellulitis in LLE about same, slightly better, no calf pain. Neuro: generalized weakness; no focal deficits. Skin: warm and dry; cellulitis LLE - Assessment and Plan (1) CHF (congestive heart failure) Current Visit: Yes Status: Acute Assessment and Plan: 1. Patient fluid overloaded. 2. Will try to diurese if OK with nephrology. 3. Nephrology wanted to gingerly hydrate with one liter IVF before trying to diurese. 4. Monitor I/O. 5. Wean oxygen as able, night time BiPap per home use. 6. Likely transfer out of ICU today to stepdown unit. (2) Diabetes Current Visit: Yes Status: Chronic Assessment and Plan: 1. Monitor glucose. 2. SSI -- adjust as needed. (3) Pulmonary hypertension Current Visit: Yes Status: Chronic Assessment and Plan: 1. Patient with moderate to severe PHTN and severe TR. 2. Poor prognosis. 3. Supportive care as appropriate. 4. Consult palliative care for guidance with goals of care. (4) L[place] (acute kidney injury) Current Visit: Yes Status: Acute Assessment and Plan: 1. Renal function about same despite IVF. 2. Nephrology following. 3. Would like to try low ose Lasix drip in hopes of diuresing her but will await nephrology input. (5) Left leg cellulitis Current Visit: Yes Status: Acute Assessment and Plan: 1. Continue Cefepime. 2. Patient w + MRSA screen. I'm reluctant to add Vancomycin due to kidney disease. 3. Will discuss with MDR team -- possibly add Zyvox. (6) Acute metabolic encephalopathy Current Visit: Yes Status: Acute Assessment and Plan: 1. Better; patient awake, alert, oriented this morning. 2. Monitor clinically. DVT Prophylaxis: Heparin SQ - Time Spent with Patient Total time spent is greater than 50% in coordination of care (as documented) at patient's floor/unit and/or counseling patient: Plan of Care Discussed with: other (Patient, MDR team) Internal Medicine: Result - Labs CBC & Chem 7: 07/20/19 03:45 07/20/19 03:45 Labs: Short CBC 07/20/19 Range/Units 03:45 WBC 15.0 H (4.3-11.1) K/mcL Hgb 9.7 L (11.5-15.4) g/dL Hct 30.8 L (35.3-44.9) % Plt Count 264 (140-400) K/mcL Neutrophils # 12.8 H (1.6-8.9) K/mcL BMP 07/19/19 07/19/19 07/19/19 09:07 12:52 19:35 Sodium 131 L 131 L Potassium 5.5 H 5.0 5.2 H Chloride 94 L 97 L Carbon Dioxide 21 L 23 BUN 99 H 98 H Creatinine 4.48 H 4.29 H Glucose 135 H 100 Calcium 8.1 L 7.8 L 07/20/19 03:45 Sodium 131 L Potassium 5.2 H Chloride 95 L Carbon Dioxide 19 L BUN 103 H Creatinine 4.42 H Glucose 119 H Calcium 8.3 L Cardiac Enzymes 07/19/19 07/20/19 Range/Units 12:52 03:45 Troponin I 0.09 H* 0.09 H* (< 0.04) ng/mL Liver Function 07/20/19 Range/Units 03:45 Total Bilirubin 0.8 (0.3-1.0) mg/dL AST 35 (13-39) Units/L ALT 9 (7-52) Units/L Alkaline Phosphatase 126 H (34-104) Units/L Albumin 3.1 L (3.5-5.7) g/dL - ABG Interpretation ABG results: PT/INR, D-dimer PT 18.9 Seconds (9.4-12.1) H 07/20/19 03:45 - Impressions Impressions Echocardiogram 07/19/19 11:40 Impressions: LVEF 50-55%. Normal LV chamber size, wall thickness and function. Atypical septal motion consistent with paced rhythm. Mildly dilated and hypokinetic right ventricle. Mild aortic sclerosis. Mean gradient 8 mmHg. Mild mitral regurgitation. Severe tricuspid regurgitation. Moderate pulmonary hypertension. Estimated RVSP is 48 mmHg. Left Ventricular Wall Motion: Rest Echo Findings All wall segments showed normal motion. Findings: Study Quality * Technically sub-optimal due to poor echocardiographic windows. ECG Findings * Paced rhythm. Left Ventricle * LVEF 50-55%. * Normal LV chamber size, wall thickness and function. * Atypical septal motion consistent with paced rhythm. Right Ventricle * Mildly dilated right ventricle. * Mild right ventricular hypokinesis. Left Atrium * Moderately dilated left atrium. Right Atrium * Moderately dilated right atrium. Interatrial Septum * Interatrial septum not well evaluated. Aortic Valve * Aortic valve not well visualized. * Grossly, mildly sclerotic aortic valve leaflets. * No aortic regurgitation. * Mild aortic sclerosis. Mean gradient 8 mmHg. Mitral Valve * Mildly thickened mitral valve leaflets. * Mild mitral annular calcification * Mild mitral regurgitation. * No mitral stenosis. Tricuspid Valve * Normal tricuspid valve structure. * Severe tricuspid regurgitation. * Moderate pulmonary hypertension. * Estimated RVSP is 48 mmHg. * Estimated RA pressure is 5 mmHg. Pulmonic Valve * Normal pulmonic valve structure. * Mild pulmonic regurgitation. Aorta * Normally sized aortic root. Pericardium * The pericardium appears normal. IVC * Normal IVC dimensions and inspiratory collapse. Pulmonary Artery * Normal visualized portions of the main pulmonary artery. Device lead * A device lead was visualized in the right atrium and right ventricle. Retroperitoneum Ultrasound 07/19/19 20:30 IMPRESSION: Overall increased echogenicity of renal parenchyma, nonspecific finding suggesting medical renal disease. No hydronephrosis or shadowing renal pelvic stones. Perihepatic fluid. D/ / Nydia Shah Cha, MD / Nydia Shah Cha, MD Interpreting Provider: Nydia Shah Cha, MD Chest X-Ray 07/20/19 06:00 IMPRESSION: Volume overload. D/ / Everardo Herrera / Everardo Herrera Interpreting Provider: Everardo Herrera - VTE Reasons for not Prescribing Prophylaxis: Medical contraindication Consult Discharge Plan - Plan Referrals: NONE,PCP [Primary Care Provider] - (1) CHF (congestive heart failure) Qualifiers: Heart failure type: diastolic Heart failure chronicity: acute on chronic Qualified Code(s): I50.33 - Acute on chronic diastolic (congestive) heart failure (2) Diabetes Qualifiers: Diabetes mellitus type: type 2 Diabetes mellitus care home insulin use: with intermediate frame tender use Diabetes mellitus complication status: with kidney complications Diabetes mellitus complication detail: with chronic kidney disease Chronic kidney disease stage: stage 4 (severe) Qualified Code(s): E11.22 - Type 2 diabetes mellitus with diabetic chronic kidney disease; N18.4 - Chronic kidney disease, stage 4 (severe); Z79.4 - retirement (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
[2019-07-20] MEDS ORDERED: cefTRIAXone 1,000 MG in Water for inj. (sterile) 10 ML IVP SCH ×2 (09:00→11:00)
--- NOTE | 2019-07-20 09:06 | Event Note ---
Date of Encounter: 07/20/19 Time of Encounter: 09:03 - Cardiology Event Note Echo report reviewed, EF 50-55%. Troponins flat in the setting of L[place]ON. Has follow-up with Dr. Morrison outpatient. Cardiology will sign off at this time, please re-consult as needed.
[2019-07-20] MEDS ORDERED: 0.9 % Sodium Chloride 250 ML IVC PRN ×2 (09:56→16:13)
[2019-07-20] MEDS ORDERED: 0.9 % Sodium Chloride 1,000 ML PRIME SCH ×2 (10:00→16:13)
--- NOTE | 2019-07-20 10:04 | Nephrology Consult Note ---
Date of Encounter: 07/20/19 Time of Encounter: 09:15 (Time estimated) Assessment and Plan (1) Acute kidney injury superimposed on CKD Current Visit: Yes Status: Acute (2) Hyperkalemia Current Visit: Yes Status: Acute (3) Hyponatremia Current Visit: Yes Status: Acute (4) CKD (chronic kidney disease) stage 3, GFR 30-59 ml/min Current Visit: No Status: Chronic (5) Metabolic acidosis Current Visit: Yes Status: Acute History of Present Illness - History of Present Illness Chart review: Patient presented to [facility] on 07[facility]16 for "shortness of breath " and "cellulitis". Past medical history: Arthritis, asthma, A. fib, skin cancer, CHF, COPD, CAD, DVT, diabetes, fibromyalgia, hyperlipidemia, hypertension, CK D stage IIIB, t hyroid disease. Initial vitals significant for: pulse of 89 Initial labs significant for: Hyponatremia with sodium at 131. BUN 95 from baseline around 60. Creatinine 3.54 with baseline around 1.5. BNP slightly elevated from baseline at 746 from 600s. Urine showed protein, red blood cells, white blood cells. Urine cultures 07/16 and 07/19 growing yeast. Renal history: Says she has never been on dialysis and sees Dr Song since about 2 years ago. Confirms her last known diagnosis was CKDIII. Intake: She drinks maybe 1 L per day. Not typically thirsty. Output: Says that catheter was placed in her rehabilitation facility because she was urinating frequently. Today: Patient seen and examined at bedside. She says she does not feel good and feels like she is going to . Past Med Surg Social Fam HX - Past Medical History Medical history: arthritis, asthma, atrial fibrillation, cancer, CHF, COPD, coronary artery disease, DVT, diabetes, fibromyalgia, hyperlipidemia, hypertension, renal disease, thyroid disease, other Additional medical history: skin cancer Psychiatric history: depression - Past Surgical History Surgical History: pacemaker Additional surgical history: parathyroidectomy,. Right knee - Social History Smoking Status: Former smoker Smokeless Tobacco Status: No Alcohol use: none Drug use: none - Family History Mother Adopted: No Living Status: Hx Family Cardiac Disorders: Yes Hx Family Respiratory Disorders: Yes (COPD) Hx Family Cancer: Yes (lung, breast) Hx Family GI Disorders: No Hx Family Endocrine Disorder: No Hx Family Neuromuscular Disorders: No Hx Family Neurologic Disorders: Yes Hx Family HEENT Disorders: No Hx Family Autoimmune Disorders: Yes (non hygkins lymphoma) Medications and Allergies Carbidopa/Levodopa 25/100 [Sinemet 25/100] 1 tab PO BID 03/07/16 [History] Fluticasone Propionate Nasal [Flonase] 2 spray NS BID PRN 03/07/16 [History] Ustekinumab [Stelara (For Outpatient Infusion)] 90 mg SQ [id number] 03/07/16 [History] Vitamin B Complex [B Complex] 1 tab PO QPM 03/07/16 [History] Atorvastatin [Lipitor] 40 mg PO HS 05/18/17 [History] Albuterol Sulfate [Proair Hfa] 2 puff IH Q4H PRN 03/02/18 [History] Cholecalciferol (D-3) [Vitamin D] 1,000 unit PO DAILY tablet 11/18/18 [Rx] Loperamide [Imodium] 2 mg PO QID PRN 01/10/19 [History] Umeclidinium [place] [Incruse Ellipta] 1 puff IH DAILY 01/10/19 [History] Budesonide/Formoterol 80/4.5 [Symbicort 80/4.5] 2 puff IH BIDRESP #1 inhaler 02/21/19 [Rx] Isosorbide MONOnitrate (24 HR) [Imdur] 120 mg PO DAILY #60 tab.er.24h 02/21/19 [Rx] Amiodarone [Cordarone] 200 mg PO BID 05/26/19 [History] Calcitriol [Rocaltrol] 0.25 mcg PO QMWF 05/26/19 [History] FLUoxetine HCl [Fluoxetine HCl] 40 mg PO DAILY 05/26/19 [History] Ascorbic Acid [Vitamin C] 500 mg PO 0630 tablet 05/30/19 [Rx] Docusate [Colace] 100 mg PO BID capsule 05/30/19 [Rx] Ondansetron ODT [Zofran ODT] 4 mg SL Q4HR PRN tab.rapdis 05/30/19 [Rx] Magnesium Oxide [Mag-Ox] 400 mg PO DAILY #7 tablet 06/06/19 [Rx] HYDROcodone/Acet 5/325 mg [Busy 5-325 mg] 1 tab PO QAM AND QHS 60 Days #120 tablet 06/29/19 [Rx] Metoprolol [Lopressor] 25 mg PO BID tablet 06/29/19 [Rx] ALPRAZolam [Xanax 0.25 MG Tablet] 0.25 mg PO Q6HR PRN 07/11/19 [History] Baclofen 5 mg PO HS 07/11/19 [History] Bumetanide [Bumex] 1.5 mg PO BID 07/11/19 [History] Lisinopril [Zestril] 5 mg PO DAILY 07/11/19 [History] Nystatin POWDER [Nystop] 1 appl TP BID 07/11/19 [History] Levothyroxine [Synthroid] 125 mcg PO 0630 07/16/19 [History] Acetaminophen [Tylenol] 325 mg PO Q6HR PRN 07/19/19 [History] Allopurinol [Zyloprim 100 MG] 200 mg PO DAILY 07/19/19 [History] Digoxin [Lanoxin] 0.125 mg PO MOTH 07/19/19 [History] Allergy/AdvReac Type Severity Reaction Status Date / Time amlodipine [From Norvasc] Allergy Severe Swelling Verified 07/16/19 21:05 of Lip/Tongue/Throat carbamazepine [From Tegretol] Allergy Mild rash/bliste Verified 07/16/19 21:05 rs ciprofloxacin [From Cipro] Allergy Mild Rash Verified 07/16/19 21:05 nitrofurantoin Allergy Mild Rash Verified 07/16/19 21:05 [From Macrobid] Sulfa (Sulfonamide Allergy Mild Rash Verified 07/16/19 21:05 Antibiotics) sulfamethoxazole Allergy Mild Rash Verified 07/16/19 21:05 [From Bactrim] trimethoprim [From Bactrim] Allergy Mild Rash Verified 07/16/19 21:05 Iodinated Contrast Media Allergy See Verified 07/16/19 21:05 [Iodinated Contrast- Oral Comments and IV Dye] acetaminophen [From Percocet] AdvReac Mild Confusion Verified 07/16/19 21:05 meperidine [From Demerol] AdvReac Mild Vomiting Verified 07/16/19 21:05 oxycodone [From Percocet] AdvReac Mild Confusion Verified 07/16/19 21:05 promethazine [From Phenergan] AdvReac Mild Vomiting Verified 07/16/19 21:05 NSAIDS (Non-Steroidal AdvReac Unknown D/T KIDNEY Verified 07/16/19 21:05 Anti-Inflamma DYSFUNCTION Review of Systems All Systems review (narrative): Admits abdominal swelling Denies fevers, trouble swallowing, chest pain, hematuria, syncope. *historical elements, meds, and allergies auto populate into this note* Exam - Vital Signs Vital signs: Initial Vital Signs Temp Pulse Resp BP Pulse Ox 99.3 F 68 16 127/61 96 07/18/19 23:30 07/18/19 23:30 07/18/19 23:30 07/18/19 23:30 07/18/19 23:30 Vital Signs - Last 8 Hours Temp Pulse Resp BP Pulse Ox 07/20/19 07:25 97.8 F 07/20/19 06:00 63 21 113/80 98 07/20/19 05:00 60 18 141/64 100 07/20/19 04:00 64 20 118/53 100 07/20/19 03:00 97.5 F L 62 21 125/81 100 07/20/19 02:06 25 100 Intake and Output 07/19/19 07/20/19 07/20/19 23:59 07:59 15:59 Intake Total 1075 / 1075 Output Total 75 / 270 150 / 150 Balance -75 / 995 925 / 925 Intake: IV Fluids 1075 / 1075 Sodium Bicarbonate 75 MEQ In 0. 1075 / 1075 45% Sodium Chloride 1,000 ML @ 75 mls/hr IVC .[id number] [facility] Rx#: [id number] Output: Catheter 75 / 270 150 / 150 Other: Stool Size Small Small Stool Consistency soft liquid Stool Color Brown Brown Yellow # Bowel Movements 2 1 Weight 118.3 kg Blood Glucose* 143 124 78 Patient Weight 07/20/19 23:59 Weight 118.3 kg Additional exam: Physical exam Gen.: Elderly female. Reclining in bed Eyes: Moist. Anicteric Neck: Bilateral carotid bruits Cardio: S1 and S2. 3/6 systolic murmur best heard over the pulmonic post. Mitral post not auscultated Respiratory: Crackles in bilateral bases that improved in upper hagan. Extremities: Capillary refill less than 2 seconds bilateral upper extremities. Venous stasis changes of distal lower extremities and pitting edema of lower extremities to the groin bilaterally. Neuro: [place] 2 A/P #[place] on CKD IIIB with oliguria Do not suspect postrenal. Considering urine studies with proteinuria and hematuria cannot rule out glomerular etiology. Has not responded to fluids making prerenal less likely. Retroperitoneal ultrasound 07/19 significant only for increased echogenicity of the renal parenchyma bilaterally. -BUN increased -Creatinine increased -EMILY, ANCA, c3,c4, serum free light chain analysis, SPEP, UPEP pending -urine creatinine pending -Renal replacement therapy with hemodialysis. #CKD Stage IIIB GFR baseline recently in about the 30s -Current estimated GFR 10 -Avoid nephrotoxins -Begin renal replacement therapy #Hyponatremia Consider mixed picture Initially 131 Likely hypervolemic -Calculated serum osmolality slightly elevated favors skewed lab results from other serum solute causing transcellular shift into vasculature. Would expect low serum osmolality with congestive heart failure etiology. -Urine osmolality greater than 285 favors some component of ADH involvement -Currently 131 -Serum osmolality pending #Hyperkalemia Consider secondary to transcellular shifts in the setting of acidosis Initially 5.2 -currently 5.2 -Renal replacement therapy. #NAGMA Diarrhea documented on progress note. C. difficile negative -Serum bicarbonate low at 19 Results - Lab Results 07/20/19 03:45 07/20/19 03:45 Most recent lab results 07/20/19 03:45 Calcium 8.3 L Phosphorus 7.5 H Magnesium 2.0 Consult Discharge Plan - Plan Referrals: NONE,PCP [Primary Care Provider] -
[2019-07-20] MEDS ORDERED: *HR* Heparin 5,000 UNIT/ML VIAL ONE (10:57)
[2019-07-20] MEDS ORDERED: Vancomycin 1,750 MG in 0.9 % Sodium Chloride 250 ML IVPB SCH (11:00)
--- NOTE | 2019-07-20 11:13 | IR Procedure Note ---
Date of procedure: 07/20/19 Consent Obtained: Written consent Timeout: Correct patient and procedure verified, Correct site verified, Time out performed, Skin prep completed Local anesthetic: Lidocaine 1% Was there an insurance administrative assistant present: No Estimated blood loss (cc): 1 Complications: None; Tolerated procedure well Indications: Renal failure Procedure Performed: Temp HD catheter placement Site/Technique: Temp HD catheter placed bedside Results/Findings (any specimens removed): Temp HD catheter placed Post Procedure Treatment Plan: CXR pending Specimen: none
[2019-07-20 13:51] LABS: Hepatitis B Surface Antigen Nonreactive (Nonreactive)
[2019-07-20 14:08] LABS: Hepatitis B Surface Antibody 6.87 mIU/mL
--- NOTE | 2019-07-20 14:19 | Palliative - Consult Note ---
<Josefina Richards B - Last Filed: 07/20/19 15:52> Date of Encounter: 07/20/19 Time of Encounter: 11:45 - Assessment and Plan (1) Goals of care, counseling/discussion Current Visit: Yes Status: Acute Assessment and plan: Had a discussion with patient about her goals of care. At this time her main goal is to continue to be Full Code and to have all measures taken to continue her life including CPR. She understands her current diagnosis, and is aware that her kidneys are no longer functioning well and that she may need to be on life long dialysis. She reports that she would like to have this done if needed. She is also aware of her current cardiac condition as well. Patient is also aware that her opioid pain medications are being held due to concerns regarding her current blood pressure and respiratory status. She reports that she would prefer to be Full Code at this time over having comfort care measures to make her comfortable. A family meeting was had with the patient's sister, brother and necie regarding the patients wishes. The patient also would like her Son, Isaac Holley (Rick) to be her HPOA. He was not present for this meeting, and she does not have a Living Will completed at this time. Patient was provided with a HPOA form to complete at her convenience. (2) Acute kidney injury superimposed on CKD Current Visit: Yes Status: Acute Assessment and plan: Patient is currently on temporary dialysis (3) CHF (congestive heart failure) Current Visit: Yes Status: Acute Qualifiers: Heart failure type: diastolic Heart failure chronicity: acute on chronic Qualified Code(s): I50.33 - Acute on chronic diastolic (congestive) heart failu re (4) Dyspnea Current Visit: Yes Status: Acute Assessment and plan: - Start Robitussin for patient's cough Qualifiers: Dyspnea type: shortness of breath Qualified Code(s): R06.02 - Shortness of breath; R06.00 - Dyspnea, unspecified; R06.01 - Orthopnea Palliative-CN HPI - Data of Consult Consult date: 07/20/19 Requesting Physician: Manuelito Viramontes MD Primary Care Provider: PCP NONE - Consult Narrative Palliative Care/Comfort Measures: Palliative care Reason for consult: Goals of care History of present illness: Ms. Magallanes is a 79 year old female presenting to the hospital for dyspnea with a recent history of [place] on CKD , UTI, CHF, diabetes mellitus, and hypothyroidism. She reports that she is aware of her current conditions, and that she is aware that she will need to begin dialysis for her kidneys. She states that her health is "not good". She reports that if she needs dialysis permanently, that she would like to have it done. She says that she is currently living home alone, and that she has a dog named Jessica. She says that she has an aide that comes into the home twice a day to assist her. She says that she has 2 sons. She says that only one of them she sees regularly as the other one lives far away. His name is Partha Holley, and she reports that she would like him to be her HPOA, even thought she has not completed HPOA paperwork at this time. She says that her is currently in a residential after he had a stroke. She also has several siblings as well. She is willing to go to a residential if needed, and she is unable to care for herself in the home anymore. At this time she states that she would like to remain Full Code, and that at this point in time it is more important for her to continue living over comfort care measures. She does report that her cough is bothering her a lot, and she is requesting cough medication. Returned later in the afternoon around 1:15PM when family was present in the room. Present were patient's sister, brother and niece. Discussed the patient's wishes at this time to remain Full Code and her desire to continue to have all measures taken to continue living at this point in time. Also discussed that patient does not currently have POA paperwork completed. CC: Manuelito Viramontes MD - Time Spent with Patient Time: Total time spent is greater than 50% in coordination of care (as documented) at patient's floor/unit and/or counseling patient: Time with patient: 45 minutes Past Med Surg Social Fam HX - Past Medical History Medical history: arthritis, asthma, atrial fibrillation, cancer, CHF, COPD, coronary artery disease, DVT, diabetes, fibromyalgia, hyperlipidemia, hypertension, renal disease, thyroid disease, other Additional medical history: skin cancer Psychiatric history: depression - Past Surgical History Surgical History: pacemaker Additional surgical history: parathyroidectomy,. Right knee - Social History Smoking Status: Former smoker Smokeless Tobacco Status: No Alcohol use: none Drug use: none - Family History Mother Adopted: No Living Status: Hx Family Cardiac Disorders: Yes Hx Family Respiratory Disorders: Yes (COPD) Hx Family Cancer: Yes (lung, breast) Hx Family GI Disorders: No Hx Family Endocrine Disorder: No Hx Family Neuromuscular Disorders: No Hx Family Neurologic Disorders: Yes Hx Family HEENT Disorders: No Hx Family Autoimmune Disorders: Yes (non hygkins lymphoma) Medications and Allergies Carbidopa/Levodopa 25/100 [Sinemet 25/100] 1 tab PO BID 03/07/16 [History] Fluticasone Propionate Nasal [Flonase] 2 spray NS BID PRN 03/07/16 [History] Ustekinumab [Stelara (For Outpatient Infusion)] 90 mg SQ [id number] 03/07/16 [History] Vitamin B Complex [B Complex] 1 tab PO QPM 03/07/16 [History] Atorvastatin [Lipitor] 40 mg PO HS 05/18/17 [History] Albuterol Sulfate [Proair Hfa] 2 puff IH Q4H PRN 03/02/18 [History] Cholecalciferol (D-3) [Vitamin D] 1,000 unit PO DAILY tablet 11/18/18 [Rx] Loperamide [Imodium] 2 mg PO QID PRN 01/10/19 [History] Umeclidinium [place] [Incruse Ellipta] 1 puff IH DAILY 01/10/19 [History] Budesonide/Formoterol 80/4.5 [Symbicort 80/4.5] 2 puff IH BIDRESP #1 inhaler 02/21/19 [Rx] Isosorbide MONOnitrate (24 HR) [Imdur] 120 mg PO DAILY #60 tab.er.24h 02/21/19 [Rx] Amiodarone [Cordarone] 200 mg PO BID 05/26/19 [History] Calcitriol [Rocaltrol] 0.25 mcg PO QMWF 05/26/19 [History] FLUoxetine HCl [Fluoxetine HCl] 40 mg PO DAILY 05/26/19 [History] Ascorbic Acid [Vitamin C] 500 mg PO 0630 tablet 05/30/19 [Rx] Docusate [Colace] 100 mg PO BID capsule 05/30/19 [Rx] Ondansetron ODT [Zofran ODT] 4 mg SL Q4HR PRN tab.rapdis 05/30/19 [Rx] Magnesium Oxide [Mag-Ox] 400 mg PO DAILY #7 tablet 06/06/19 [Rx] HYDROcodone/Acet 5/325 mg [[place] 5-325 mg] 1 tab PO QAM AND QHS 60 Days #120 tablet 06/29/19 [Rx] Metoprolol [Lopressor] 25 mg PO BID tablet 06/29/19 [Rx] ALPRAZolam [Xanax 0.25 MG Tablet] 0.25 mg PO Q6HR PRN 07/11/19 [History] Baclofen 5 mg PO HS 07/11/19 [History] Bumetanide [Bumex] 1.5 mg PO BID 07/11/19 [History] Lisinopril [Zestril] 5 mg PO DAILY 07/11/19 [History] Nystatin POWDER [Nystop] 1 appl TP BID 07/11/19 [History] Levothyroxine [Synthroid] 125 mcg PO 0630 07/16/19 [History] Acetaminophen [Tylenol] 325 mg PO Q6HR PRN 07/19/19 [History] Allopurinol [Zyloprim 100 MG] 200 mg PO DAILY 07/19/19 [History] Digoxin [Lanoxin] 0.125 mg PO MOTH 07/19/19 [History] Allergy/AdvReac Type Severity Reaction Status Date / Time amlodipine [From Norvasc] Allergy Severe Swelling Verified 07/16/19 21:05 of Lip/Tongue/Throat carbamazepine [From Tegretol] Allergy Mild rash/bliste Verified 07/16/19 21:05 rs ciprofloxacin [From Cipro] Allergy Mild Rash Verified 07/16/19 21:05 nitrofurantoin Allergy Mild Rash Verified 07/16/19 21:05 [From Macrobid] Sulfa (Sulfonamide Allergy Mild Rash Verified 07/16/19 21:05 Antibiotics) sulfamethoxazole Allergy Mild Rash Verified 07/16/19 21:05 [From Bactrim] trimethoprim [From Bactrim] Allergy Mild Rash Verified 07/16/19 21:05 Iodinated Contrast Media Allergy See Verified 07/16/19 21:05 [Iodinated Contrast- Oral Comments and IV Dye] acetaminophen [From Percocet] AdvReac Mild Confusion Verified 07/16/19 21:05 meperidine [From Demerol] AdvReac Mild Vomiting Verified 07/16/19 21:05 oxycodone [From Percocet] AdvReac Mild Confusion Verified 07/16/19 21:05 promethazine [From Phenergan] AdvReac Mild Vomiting Verified 07/16/19 21:05 NSAIDS (Non-Steroidal AdvReac Unknown D/T KIDNEY Verified 07/16/19 21:05 Anti-Inflamma DYSFUNCTION - Constitutional Constitutional ROS PAL: as per HPI, no decreased appetite - EENT Eyes: no change in vision - Cardiovascular Cardiovascular ROS: leg edema, no chest pain - Respiratory Respiratory: cough, dyspnea - Gastrointestinal Gastrointestinal: as per HPI - Musculoskeletal Musculoskeletal ROS IM: back pain - Neurological Neurological ROS: no abnormal speech, no dizziness - Psychiatric Psychiatric general PM: no hopelessness Palliative Care-Exam - Constitutional Vitals: Temp Pulse Resp BP Pulse Ox 98.0 F 62 20 105/52 98 07/20/19 11:57 07/20/19 12:00 07/20/19 12:00 07/20/19 12:00 07/20/19 12:00 General appearance: Present: cooperative, mild distress - Head Head Exam: Present: atraumatic, normocephalic - Eye Eye exam: Present: normal appearance - ENT ENT exam: Present: mucous membranes moist - Neck Neck exam: Present: full ROM - Respiratory Respiratory exam: Present: accessory muscle use, rales - Expanded Respiratory Exam Location: rales: Left, Right, Upper, Lower - Cardiovascular Additional comments: difficult to auscultate due to body habitus - GI/Abdominal Exam GI/Abdominal exam: Present: normal bowel sounds, soft. Absent: tenderness - Extremities Exam Extremities exam: Present: pedal edema Additional comments: bilateral lower extremity venous stasis present bilateral upper extremity anasarca noted - Neurological Exam Neurological exam: Present: alert, oriented X3, no focal deficits - Psychiatric Psychiatric exam: Present: normal affect Internal Medicine - CN: Reslt - Labs CBC & Chem 7: 07/20/19 03:45 07/20/19 03:45 Labs: Short CBC 07/20/19 Range/Units 03:45 WBC 15.0 H (4.3-11.1) K/mcL Hgb 9.7 L (11.5-15.4) g/dL Hct 30.8 L (35.3-44.9) % Plt Count 264 (140-400) K/mcL Neutrophils # 12.8 H (1.6-8.9) K/mcL BMP 07/19/19 07/20/19 19:35 03:45 Sodium 131 L Potassium 5.2 H 5.2 H Chloride 95 L Carbon Dioxide 19 L BUN 103 H Creatinine 4.42 H Glucose 119 H Calcium 8.3 L Cardiac Enzymes 07/20/19 Range/Units 03:45 Troponin I 0.09 H* (< 0.04) ng/mL Liver Function 07/20/19 Range/Units 03:45 Total Bilirubin 0.8 (0.3-1.0) mg/dL AST 35 (13-39) Units/L ALT 9 (7-52) Units/L Alkaline Phosphatase 126 H (34-104) Units/L Albumin 3.1 L (3.5-5.7) g/dL - ABG Interpretation ABG results: PT/INR, D-dimer PT 18.9 Seconds (9.4-12.1) H 07/20/19 03:45 - Impressions Impressions Chest X-Ray 07/19/19 03:12 IMPRESSION: 1. Stable left chest wall pacer. 2. Cardiomegaly with worsening pulmonary edema including bilateral effusions. 3. Bibasilar atelectasis. D/ / 07/19/2019 08:35:18 Karla Sandy MD / Rosy Darby Interpreting Provider: Karla Sandy MD Echocardiogram 07/19/19 11:40 Impressions: LVEF 50-55%. Normal LV chamber size, wall thickness and function. Atypical septal motion consistent with paced rhythm. Mildly dilated and hypokinetic right ventricle. Mild aortic sclerosis. Mean gradient 8 mmHg. Mild mitral regurgitation. Severe tricuspid regurgitation. Moderate pulmonary hypertension. Estimated RVSP is 48 mmHg. Left Ventricular Wall Motion: Rest Echo Findings All wall segments showed normal motion. Findings: Study Quality * Technically sub-optimal due to poor echocardiographic windows. ECG Findings * Paced rhythm. Left Ventricle * LVEF 50-55%. * Normal LV chamber size, wall thickness and function. * Atypical septal motion consistent with paced rhythm. Right Ventricle * Mildly dilated right ventricle. * Mild right ventricular hypokinesis. Left Atrium * Moderately dilated left atrium. Right Atrium * Moderately dilated right atrium. Interatrial Septum * Interatrial septum not well evaluated. Aortic Valve * Aortic valve not well visualized. * Grossly, mildly sclerotic aortic valve leaflets. * No aortic regurgitation. * Mild aortic sclerosis. Mean gradient 8 mmHg. Mitral Valve * Mildly thickened mitral valve leaflets. * Mild mitral annular calcification * Mild mitral regurgitation. * No mitral stenosis. Tricuspid Valve * Normal tricuspid valve structure. * Severe tricuspid regurgitation. * Moderate pulmonary hypertension. * Estimated RVSP is 48 mmHg. * Estimated RA pressure is 5 mmHg. Pulmonic Valve * Normal pulmonic valve structure. * Mild pulmonic regurgitation. Aorta * Normally sized aortic root. Pericardium * The pericardium appears normal. IVC * Normal IVC dimensions and inspiratory collapse. Pulmonary Artery * Normal visualized portions of the main pulmonary artery. Device lead * A device lead was visualized in the right atrium and right ventricle. Retroperitoneum Ultrasound 07/19/19 20:30 IMPRESSION: Overall increased echogenicity of renal parenchyma, nonspecific finding suggesting medical renal disease. No hydronephrosis or shadowing renal pelvic stones. Perihepatic fluid. D/ / Nydia Shah Cha, MD / Nydia Shah Cha, MD Interpreting Provider: Nydia Shah Cha, MD Guidance Ultrasound 07/20/19 00:00 IMPRESSION: Ultrasound-guided placement of a temporary hemodialysis catheter. No immediate complications. A postprocedure chest radiograph has confirmed appropriate positioning. The catheter is ready for use. D/ / Slick Mejia MD / Slick Mejia MD Interpreting Provider: Slick Mejia MD Insertion Non-Tunneled Catheter 07/20/19 00:00 IMPRESSION: Ultrasound-guided placement of a temporary hemodialysis catheter. No immediate complications. A postprocedure chest radiograph has confirmed appropriate positioning. The catheter is ready for use. D/ / Slick Mejia MD / Slick Mejia MD Interpreting Provider: Slick Mejia MD Chest X-Ray 07/20/19 06:00 IMPRESSION: Volume overload. D/ / Everardo Herrera / Everardo Herrera Interpreting Provider: Everardo Herrera Chest X-Ray 07/20/19 11:09 IMPRESSION: 1. The newly placed right IJ temp HD catheter is adequately positioned. No pneumothorax. 2. Stable CHF/fluid overload. D/ / Slick Mejia MD / Slick Mejia MD Interpreting Provider: Slick Mejia MD Consult Discharge Plan - Plan Referrals: NONE,PCP [Primary Care Provider] - Palliative Quality Palliative Quality: Screen for Code Status: Yes, Screen for Goals of Care: Yes, Screen for Pain: Yes, If Pain Regimen Started, Initiate Bowel Regimen: NA, Screen for Nausea/Vomitting: NA Code Status: 07/18/19 23:56 Resuscitation Status: Active [RES] Routine Comment: Resuscitation Status: Full Code Palliative Scale - Palliative Performance Scale How ambulatory is this patient?: Mainly sit / lie What is patient's level of activity and evidence of disease?: Unable normal job/work, Significant disease How much self-care assistance does patient require?: Considerable assistance required How much oral intake does the patient have?: Normal What is this patient's level of consciousness?: Full Palliative Performance Score: 50 % <PhyliciaRosemary Stephany - Last Filed: 07/20/19 16:43> Date of Encounter: 07/20/19 Palliative-CN HPI - Data of Consult Requesting Physician: Manuelito Viramontes MD Primary Care Provider: PCP NONE - Consult Narrative History of present illness: Ms. Magallanes is a 79 year old female CC: Manuelito Viramontes MD - Time Spent with Patient Time: Total time spent is greater than 50% in coordination of care (as documented) at patient's floor/unit and/or counseling patient: Palliative Care-Exam - Constitutional Vitals: Temp Pulse Resp BP Pulse Ox 98.0 F 64 21 105/52 98 07/20/19 11:57 07/20/19 14:50 07/20/19 14:50 07/20/19 12:00 07/20/19 12:00 Internal Medicine - CN: Reslt - Labs CBC & Chem 7: 07/20/19 03:45 07/20/19 03:45 Labs: Short CBC 07/20/19 Range/Units 03:45 WBC 15.0 H (4.3-11.1) K/mcL Hgb 9.7 L (11.5-15.4) g/dL Hct 30.8 L (35.3-44.9) % Plt Count 264 (140-400) K/mcL Neutrophils # 12.8 H (1.6-8.9) K/mcL BMP 07/19/19 07/20/19 19:35 03:45 Sodium 131 L Potassium 5.2 H 5.2 H Chloride 95 L Carbon Dioxide 19 L BUN 103 H Creatinine 4.42 H Glucose 119 H Calcium 8.3 L Cardiac Enzymes 07/20/19 Range/Units 03:45 Troponin I 0.09 H* (< 0.04) ng/mL Liver Function 07/20/19 Range/Units 03:45 Total Bilirubin 0.8 (0.3-1.0) mg/dL AST 35 (13-39) Units/L ALT 9 (7-52) Units/L Alkaline Phosphatase 126 H (34-104) Units/L Albumin 3.1 L (3.5-5.7) g/dL - ABG Interpretation ABG results: PT/INR, D-dimer PT 18.9 Seconds (9.4-12.1) H 07/20/19 03:45 - Impressions Impressions Chest X-Ray 07/19/19 03:12 IMPRESSION: 1. Stable left chest wall pacer. 2. Cardiomegaly with worsening pulmonary edema including bilateral effusions. 3. Bibasilar atelectasis. D/ / 07/19/2019 08:35:18 Karla Sandy MD / Rosy werner Interpreting Provider: Karla Sandy MD Retroperitoneum Ultrasound 07/19/19 20:30 IMPRESSION: Overall increased echogenicity of renal parenchyma, nonspecific finding suggesting medical renal disease. No hydronephrosis or shadowing renal pelvic stones. Perihepatic fluid. D/ / Nydia Shah Cha, MD / Nydia Shah Cha, MD Interpreting Provider: Nydia Shah Cha, MD Guidance Ultrasound 07/20/19 00:00 IMPRESSION: Ultrasound-guided placement of a temporary hemodialysis catheter. No immediate complications. A postprocedure chest radiograph has confirmed appropriate positioning. The catheter is ready for use. D/ / Slick Mejia MD / Slick Mejia MD Interpreting Provider: Slick Mejia MD Insertion Non-Tunneled Catheter 07/20/19 00:00 IMPRESSION: Ultrasound-guided placement of a temporary hemodialysis catheter. No immediate complications. A postprocedure chest radiograph has confirmed appropriate positioning. The catheter is ready for use. D/ / Slick Mejia MD / Slick Mejia MD Interpreting Provider: Slick Mejia MD Chest X-Ray 07/20/19 06:00 IMPRESSION: Volume overload. D/ / Everardo Herrera / Everardo Herrera Interpreting Provider: Everardo Herrera Chest X-Ray 07/20/19 11:09 IMPRESSION: 1. The newly placed right IJ temp HD catheter is adequately positioned. No pneumothorax. 2. Stable CHF/fluid overload. D/ / Slick Mejia MD / Slick Mejia MD Interpreting Provider: Slick Mejia MD - Attending Attestation I examined this patient and my medical decision-making was reviewed with the Resident Physician. I agree with the documented findings, disposition and treatment plan as described except to the extent set forth below. 79 year old female presenting to the hospital for dyspnea with a recent history of [place] on CKD , UTI, CHF, diabetes mellitus, and hypothyroidism, admitted for worsening SOB, found with worsening [place] on CKD, now being started on HD. Palliative care consult for GOC. 30 minutes meeting with pt, Discussed current medical condition, trajectory of illness, treatment options and overall poor prognosis. Patient wants all interventions possible done to prolong her life, even if that meant to be uncomfortable. She wants to remain FULL code. MPOA was discussed, she appointed her son Yoan, but was too weak to complete the documentation. 1300: met with pt's family for 10 minutes: brother, sister and niece and updated on pt's wishes. Family was aware. I spent 20 total time with patient, family member(s) and/or surrogate discussing advance care planning to include explanation/discussion of advanced directives. Please note this time was additional time spent with patient, family and/or surrogate not involving active management of patient's conditions or treatments. Palliative care will follow up on Tuesday, pending clinical course. Palliative Quality Code Status: 07/18/19 23:56 Resuscitation Status: Active [RES] Routine Comment: Resuscitation Status: Full Code
[2019-07-20] MEDS ORDERED: GuaiFENesin Liq 200 MG/10 ML UDC PO PRN (14:25)
[2019-07-20] MEDS ORDERED: Naloxone 0.4 MG/ML INJ IVP PRN (16:13)
[2019-07-20] MEDS ORDERED: *HR* Dextrose 50 % in Water (Syg) 50 ML SYRINGE IVP PRN (16:13)
[2019-07-20] MEDS ORDERED: Desitin (Zinc Oxide) 56 GM TUBE TP PRN (16:13)
[2019-07-20] MEDS ORDERED: Dextrose Gel 15 GM/37.5 ML TUBE PO PRN ×2 (16:13)
[2019-07-20] MEDS: traMADol 50 MG TABLET PO PRN (16:56)
[2019-07-20 17:01] LABS: Complement C3 81 mg/dL (87-200)
[2019-07-21] MEDS: traMADol 50 MG TABLET PO PRN ×3 (02:51→19:33)
[2019-07-21 04:17] LABS: Basophils # 0.1 K/mcL (0.0-0.2); Basophils % 0.6 %; Eosinophils # 0.5 K/mcL (0.0-0.6); Eosinophils % 3.4 %; Hematocrit 30.7 % (35.3-44.9); Hemoglobin 9.7 g/dL (11.5-15.4); Immature Granulocytes % 2.1 % (0-4); Lymphocytes # 0.6 K/mcL (0.6-4.6); Mean Corpuscular HGB Conc 31.6 g/dL (31.6-35.5); Mean Corpuscular Volume 110.8 fL (83.0-100.0); Mean Platelet Volume 11.8 fL (9.4-12.4); Monocytes # 0.9 K/mcL (0.0-1.3); Monocytes % 6.1 %; Nucleated Red Blood Cells 0.2 /100 WBC (0); Platelet Count 253 K/mcL (140-400); Red Blood Count 2.77 M/mcL (3.82-4.97); Red Cell Distribution Width 18.8 % (11.5-14.5); Segmented Neutrophils % 83.8 %; White Blood Count 14.1 K/mcL (4.3-11.1)
[2019-07-21 04:19] LABS: Neutrophils # 11.8 K/mcL (1.6-8.9)
[2019-07-21 04:35] LABS: Platelet Estimate Normal (Normal)
[2019-07-21 04:39] LABS: Calcium 8.8 mg/dL (8.6-10.3); Potassium 4.6 mEq/L (3.5-5.1)
[2019-07-21] MEDS: *HR* Heparin 5,000 UNIT/ML VIAL SQ SCH ×3 (06:15→22:17)
[2019-07-21] MEDS ORDERED: 0.9 % Sodium Chloride 250 ML IVC PRN (07:38)
[2019-07-21] MEDS ORDERED: 0.9 % Sodium Chloride 1,000 ML ONE (07:45)
[2019-07-21] MEDS: Insulin LISPRO 300 UNITS/3 ML VIAL SQ SCH ×3 (08:13→16:32)
[2019-07-21] MEDS ORDERED: Aminoglycoside Consult 1 EACH MC ONE (08:21)
[2019-07-21] MEDS ORDERED: *HR* Heparin 10,000 UNIT/10 ML VIAL IV PRN (11:10)
--- NOTE | 2019-07-21 11:46 | Nephrology Progress Note ---
Date of Encounter: 07/21/19 Time of Encounter: 10:30 - Assessment and Plan (1) Acute kidney injury superimposed on CKD Current Visit: Yes Status: Acute Ongoing acute kidney injury, and I recommend her second dialysis treatment today: I reviewed the patient's labs, vital signs, progress notes, imaging and medication lists, which required complex evaluation and management and medical decision making to compose the patient's dialysis orders. As always, I recommend following strict I's and O's, daily weights, renal diet, avoidance of nephrotoxic agents, renal dosing. Her next tentative dialysis is most likely going to be for Tuesday. If she does not show renal recovery by early next week, then she would need a permacath. (2) Dyspnea Current Visit: Yes Status: Acute She should continue to receive the Bumex and will need HD for clearance and UF Qualifiers: Dyspnea type: shortness of breath Qualified Code(s): R06.02 - Shortness of breath; R06.00 - Dyspnea, unspecified; R06.01 - Orthopnea (3) Diarrhea Current Visit: Yes Status: Acute As per primary: Supportive measures. Qualifiers: Qualified Code(s): R19.7 - Diarrhea, unspecified (4) Peripheral edema Current Visit: Yes Status: Acute (5) CHF (congestive heart failure) Current Visit: Yes Status: Acute As per primary Agree with diuretics plus HD for fluid removal. Qualifiers: Heart failure type: diastolic Heart failure chronicity: acute on chronic Qualified Code(s): I50.33 - Acute on chronic diastolic (congestive) heart failure (6) Anemia Current Visit: Yes Status: Chronic Goal Hgb is 10-11 Qualifiers: Anemia type: unspecified type Qualified Code(s): D64.9 - Anemia, unspecified Subjective Principal diagnosis: [place] Interval history: The patient was seen and examined earlier in the day. She affirmed still feeling very fatigued, and tired. She did not affirm having chest pain. Objective - Vital Signs Vital signs: Vital Signs Temp Pulse Resp BP Pulse Ox 07/21/19 11:35 103/62 07/21/19 11:20 110/54 07/21/19 11:05 102/66 07/21/19 10:50 114/54 07/21/19 10:35 110/69 07/21/19 10:20 105/62 07/21/19 10:05 149/79 07/21/19 09:50 103/56 07/21/19 09:35 97.7 F 19 96/55 07/21/19 08:34 63 18 100 07/21/19 07:08 97.9 F 61 18 118/52 100 07/21/19 03:34 97.5 F L 69 18 144/71 98 07/20/19 23:42 97.8 F 63 19 124/61 100 07/20/19 20:17 97.8 F 61 18 111/56 99 07/20/19 18:15 61 20 98 07/20/19 17:02 97.8 F 68 20 118/61 97 07/20/19 16:50 64 21 07/20/19 16:45 98.1 F 20 109/77 07/20/19 16:15 97/70 07/20/19 16:00 103/69 07/20/19 15:45 109/54 07/20/19 15:30 121/56 07/20/19 15:15 116/60 07/20/19 15:00 119/73 07/20/19 14:45 120/60 07/20/19 14:30 115/69 07/20/19 14:15 97.9 F 22 111/56 07/20/19 12:00 62 20 105/52 98 07/20/19 11:57 98.0 F Intake and Output 07/20/19 07/21/19 07/21/19 23:59 07:59 15:59 Intake Total 500 / 500 Output Total 2800 / 3050 100 / 100 Balance -2800 / -1375 -100 / 400 500 / 400 Intake: Oral 0 / 0 Intake, Rinseback and Flushes 500 / 500 Output: Urine 0 / 0 100 / 100 Total Dialysis (HD) Output 2600 / 2600 Catheter 200 / 450 Other: Meal Dinner Percent of Meal Consumed 0% Weight 119.7 kg Blood Glucose* 131 129 Hemodialysis Net Fluid Removed 1999 2006 (mL) Patient Weight 07/21/19 23:59 Weight 119.7 kg - General Appearance General appearance: Present: well-developed, well-nourished, appears started age, obese, fatigue, frail EENT: Present: ATNC, PERRL, mucous membranes moist Neck: Present: no JVD, supple Respiratory: Present: no kyphosis, course breath sounds Cardiology: Present: edema (1-2+ pretibial pitting edema bilaterally), normal S1, normal S2 Dialysis Vascular Access: Venous Catheter (right IJ temporary HD catheter in place with dressing C/D/I) Gastrointestinal: Present: normoactive bowel sounds, no tenderness Integumentary: Present: warm and dry, ecchymotic Neurologic: Present: no focal deficit, no asterixis, alert and oriented x3 Musculoskeletal: Present: no erythema, no cyanosis, no clubbing Psychiatric: Present: mood/affect appropriate, cooperative - Lab 07/22/19 04:35 07/22/19 04:35 Most recent lab results 07/20/19 07/21/19 23:35 04:10 Calcium 8.8 Urine Creatinine 118 - VTE Reasons for not Prescribing Prophylaxis: Medical contraindication Consult Discharge Plan - Plan Referrals: NONE,PCP [Primary Care Provider] -
[2019-07-21] MEDS: cefTRIAXone 1,000 MG in Water for inj. (sterile) 10 ML IVP SCH (13:09)
--- NOTE | 2019-07-21 14:27 | Internal Med Progress Note ---
Hospitalist Progress Note - Encounter Date of Encounter: 07/21/19 Time of Encounter: 08:47 - Subjective Interval History: No acute events overnight. Patient states that she thinks she is dying. When asked for specific symptoms, she admitted general weakness and lethargy but denied, chest pain, SOB, palpitations, lightheadedness, fever and chills - Exam Vitals: Temp Pulse Resp BP Pulse Ox 37.0 C 71 18 110/78 93 07/21/19 12:20 07/21/19 12:56 07/21/19 12:56 07/21/19 12:20 07/21/19 12:56 Exam: GENERAL: Not in distress. Alert and Oriented HEENT: EOMI, PERRLA MOUTH: Moist oral mucosa NECK:No JVD, No lymph nodes. CHEST AND LUNGS: Transmitted sounds, no wheezes or crackles HEART: S1 and S2 normal, no murmurs ABDOMEN: Soft, nontender, no organomegaly SKIN: Normal color, no rahses, no lesions EXTREMITIES: +3 bipedal edema, bilateral venostasis dermatitis with tenderness on palpation of both lower extremities at the site of dermatitis. NEUROLOGICAL: Normal cognition, normal motor and sensory exam. - Assessment and Plan (1) Acute kidney injury superimposed on CKD Current Visit: Yes Status: Acute Assessment and Plan: Nephrology on board board and following. Patient for second dialysis today She had a session yesterday. (2) Acute metabolic encephalopathy Current Visit: Yes Status: Acute (3) CHF (congestive heart failure) Current Visit: Yes Status: Acute Assessment and Plan: Patient is still on oxygen via nasal cannula We will go for dialysis today for more fluid removal. We will continue daily I&O's and weights Monitor (4) Left leg cellulitis Current Visit: Yes Status: Acute Assessment and Plan: Patient has bilateral stasis dermatitis. Lower extremity is warmer and more tender than the right. Continue IV antibiotics Currently on IV ceftriaxone. (5) Diabetes Current Visit: Yes Status: Chronic Assessment and Plan: Accu-Cheks Insulin sliding scale. (6) Pulmonary hypertension Current Visit: Yes Status: Chronic Assessment and Plan: She has echo showed moderate to severe pulmonary hypertension and severe TR Patient has been counseled on the prognosis of his diagnosis. Palliative care following. DVT Prophylaxis: subcutaneous heparin - Time Spent with Patient Total time spent is greater than 50% in coordination of care (as documented) at patient's floor/unit and/or counseling patient: Internal Medicine: Result - Labs CBC & Chem 7: 07/21/19 04:10 07/21/19 04:10 Labs: Short CBC 07/21/19 Range/Units 04:10 WBC 14.1 H (4.3-11.1) K/mcL Hgb 9.7 L (11.5-15.4) g/dL Hct 30.7 L (35.3-44.9) % Plt Count 253 (140-400) K/mcL Neutrophils # 11.8 H (1.6-8.9) K/mcL BMP 07/21/19 04:10 Sodium 132 L Potassium 4.6 Chloride 97 L Carbon Dioxide 23 BUN 82 H Creatinine 3.60 H Glucose 117 H Calcium 8.8 - ABG Interpretation ABG results: PT/INR, D-dimer PT 18.9 Seconds (9.4-12.1) H 07/20/19 03:45 - VTE Reasons for not Prescribing Prophylaxis: Medical contraindication Consult Discharge Plan - Plan Referrals: NONE,PCP [Primary Care Provider] - (3) CHF (congestive heart failure) Qualifiers: Heart failure type: diastolic Heart failure chronicity: acute on chronic Qualified Code(s): I50.33 - Acute on chronic diastolic (congestive) heart failure (5) Diabetes Qualifiers: Diabetes mellitus type: type 2 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
[2019-07-21] MEDS ORDERED: Fluticasone Propionate Nasal 50 MCG/SPRAY BOTTLE NS PRN (17:02)
[2019-07-21] MEDS: Bumetanide 1 MG TABLET PO SCH (17:23)
[2019-07-21] MEDS: Benzonatate 100 MG CAPSULE PO PRN (17:25)
[2019-07-21] MEDS: Vitamin B Complex/Vit C/Vit E 1 EACH TABLET PO SCH (17:25)
[2019-07-21] MEDS: Budesonide/Formoterol 80/4.5 1 PUFF INH IH SCH (20:34)
[2019-07-21] MEDS: *HR* HYDROcodone/Acet 5/325 mg TABLET PO SCH (22:16)
[2019-07-21] MEDS: Baclofen 10 MG TABLET PO SCH (22:17)
[2019-07-21] MEDS: Carbidopa/Levodopa 25/100 TABLET PO SCH (22:17)
[2019-07-21] MEDS: Nystatin POWDER 30 GM BOTTLE TP SCH (22:18)
[2019-07-22] MEDS: *HR* Amiodarone 200 MG TABLET PO SCH ×2 (02:13→10:02)
[2019-07-22] MEDS: Ondansetron ODT 4 MG TAB.RAPDIS SL PRN (02:19)
[2019-07-22] MEDS: traMADol 50 MG TABLET PO PRN (04:19)
[2019-07-22 04:59] LABS: Hematocrit 29.7 % (35.3-44.9); Hemoglobin 9.4 g/dL (11.5-15.4); Mean Corpuscular HGB Conc 31.6 g/dL (31.6-35.5); Mean Corpuscular Hemoglobin 35.2 pg (28.0-33.3); Mean Corpuscular Volume 111.2 fL (83.0-100.0); Mean Platelet Volume 12.3 fL (9.4-12.4); Platelet Count 226 K/mcL (140-400); Red Blood Count 2.67 M/mcL (3.82-4.97); White Blood Count 11.1 K/mcL (4.3-11.1)
[2019-07-22 05:10] LABS: Calcium 8.4 mg/dL (8.6-10.3)
[2019-07-22] MEDS: *HR* Heparin 5,000 UNIT/ML VIAL SQ SCH ×3 (06:02→21:09)
[2019-07-22] MEDS: Ascorbic Acid 500 MG TABLET PO SCH (06:02)
[2019-07-22] MEDS: Budesonide/Formoterol 80/4.5 1 PUFF INH IH SCH ×2 (08:07→22:02)
[2019-07-22] MEDS ORDERED: INCRUSE ELIPTA IH SCH (09:00)
[2019-07-22] MEDS: Insulin LISPRO 300 UNITS/3 ML VIAL SQ SCH ×3 (09:59→17:03)
[2019-07-22] MEDS: Bumetanide 1 MG TABLET PO SCH ×2 (10:01→17:03)
[2019-07-22] MEDS: Carbidopa/Levodopa 25/100 TABLET PO SCH ×2 (10:01→21:09)
[2019-07-22] MEDS: Cholecalciferol (D-3) 1,000 UNIT (25MCG) TABLET PO SCH (10:01)
[2019-07-22] MEDS: Isosorbide MONOnitrate (24 HR) 60 MG TAB.ER.24H PO SCH (10:01)
[2019-07-22] MEDS: *HR* HYDROcodone/Acet 5/325 mg TABLET PO SCH ×2 (10:02→21:09)
[2019-07-22] MEDS: cefTRIAXone 1,000 MG in Water for inj. (sterile) 10 ML IVP SCH (10:04)
[2019-07-22] MEDS: FLUoxetine 20 MG CAPSULE PO SCH (10:06)
--- NOTE | 2019-07-22 10:14 | Nephrology Progress Note ---
Date of Encounter: 07/22/19 Time of Encounter: 08:40 - Assessment and Plan (1) Acute kidney injury superimposed on CKD Current Visit: Yes Status: Acute S/p 2 dialysis treatments. Today Tuesday, she does not urgently need renal replacement therapy, so I will hold on dialysis today. Tomorrow on Tuesday, if her renal function is worsening and/or if her urine output remains oliguric, then she may need further dialysis. I have recommended that she remain on the [place] as she still is so edematous. (2) Dyspnea Current Visit: Yes Status: Acute She should continue to receive the Bum[place] and will need HD for clearance and UF Qualifiers: Dyspnea type: shortness of breath Qualified Code(s): R06.02 - Shortness of breath; R06.00 - Dyspnea, unspecified; R06.01 - Orthopnea (3) Diarrhea Current Visit: Yes Status: Acute As per primary: Supportive measures. Qualifiers: Qualified Code(s): R19.7 - Diarrhea, unspecified (4) CHF (congestive heart failure) Current Visit: Yes Status: Acute Qualifiers: Heart failure type: diastolic Heart failure chronicity: acute on chronic Qualified Code(s): I50.33 - Acute on chronic diastolic (congestive) heart failure (5) Peripheral edema Current Visit: Yes Status: Acute see above, re: indications are strong for ongoing diuretics d/t her severe peripheral edema and likely to need further dialysis on Tuesday/tomorrow for more UF. (6) Anemia Current Visit: Yes Status: Chronic Goal Hgb is 10-11 Qualifiers: Anemia type: unspecified type Qualified Code(s): D64.9 - Anemia, unspecified Subjective Principal diagnosis: [place] on CKD with edema/CHF/Dyspnea Interval history: The patient was seen and examined earlier today, and she affirmed still feeling quite tired. She has shortness of breath, but feels somewhat better after her first 2 treatments of dialysis, she affirmed. Objective - Vital Signs Vital signs: Vital Signs Temp Pulse Resp BP Pulse Ox 07/22/19 08:07 18 98 07/22/19 07:09 97.8 F 67 18 112/68 98 07/22/19 03:56 97.5 F L 85 18 96/62 98 07/21/19 23:36 97.5 F L 75 18 100/62 94 07/21/19 20:35 20 96 07/21/19 20:28 98.2 F 87 18 80/47 96 07/21/19 19:57 86 07/21/19 12:56 71 18 93 07/21/19 12:20 98.6 F 16 110/78 07/21/19 12:05 112/65 07/21/19 11:50 101/47 07/21/19 11:35 103/62 07/21/19 11:20 110/54 07/21/19 11:05 102/66 07/21/19 10:50 114/54 07/21/19 10:35 110/69 07/21/19 10:20 105/62 Intake and Output 07/21/19 07/22/19 07/22/19 23:59 07:59 15:59 Output Total 200 / 200 Balance -200 / -200 Output: Catheter 200 / 200 Urethral ([place]) 200 / 200 Other: Stool Size Small Stool Consistency loose Stool Color Brown # Bowel Movements 1 Weight 115 kg Blood Glucose* 149 130 Patient Weight 07/22/19 23:59 Weight 115 kg - General Appearance Exam: General appearance: Present: well-developed, well-nourished, appears started age, obese, fatigue, frail EENT: Present: ATNC, PERRL, mucous membranes moist Neck: Present: no JVD, supple Respiratory: Present: no kyphosis, course breath sounds Cardiology: Present: edema (1-2+ pretibial pitting edema bilaterally), normal S1, normal S2 Dialysis Vascular Access: Venous Catheter (right IJ temporary HD catheter in place with dressing C/D/I) Gastrointestinal: Present: normoactive bowel sounds, no tenderness Integumentary: Present: warm and dry, ecchymotic Neurologic: Present: no focal deficit, no asterixis, alert and oriented x3 Musculoskeletal: Present: no erythema, no cyanosis, no clubbing Psychiatric: Present: mood/affect appropriate, cooperative - Lab 07/22/19 04:35 07/22/19 04:35 Most recent lab results 07/22/19 04:35 Calcium 8.4 L - VTE Reasons for not Prescribing Prophylaxis: Medical contraindication Consult Discharge Plan - Plan Referrals: NONE,PCP [Primary Care Provider] -
[2019-07-22] MEDS: Nystatin POWDER 30 GM BOTTLE TP SCH (11:15)
--- NOTE | 2019-07-22 12:17 | Internal Med Progress Note ---
Hospitalist Progress Note - Encounter Date of Encounter: 07/22/19 Time of Encounter: 08:55 - Subjective Interval History: No acute events overnight. Patient states that she is feeling much better today. She reports soreness in her right arm. Denies fever,chills, chest pain and worsening shortness of breath. - Exam Vitals: Temp Pulse Resp BP Pulse Ox 36.6 C 75 20 96/63 97 07/22/19 11:47 07/22/19 11:47 07/22/19 11:47 07/22/19 11:47 07/22/19 11:47 Exam: GENERAL: Not in distress. Alert and Oriented HEENT: EOMI, PERRLA MOUTH: Moist oral mucosa NECK:No JVD, No lymph nodes. CHEST AND LUNGS: Transmitted sounds, no wheezes or crackles HEART: S1 and S2 normal, no murmurs ABDOMEN: Soft, nontender, no organomegaly SKIN: Normal color, no rahses, no lesions EXTREMITIES: +3 bipedal edema, bilateral venostasis dermatitis. Erythema and tenderness on the floor extremities seems to be improving. NEUROLOGICAL: Normal cognition, normal motor and sensory exam. - Assessment and Plan (1) Acute kidney injury superimposed on CKD Current Visit: Yes Status: Acute Assessment and Plan: Nephrology on board board and following. Had 2 dialysis treatments so far. Nephrology intends to repeat dialysis tomorrow if patient has worsening renal function or remains oliguric (2) CHF (congestive heart failure) Current Visit: Yes Status: Acute (3) Left leg cellulitis Current Visit: Yes Status: Acute Assessment and Plan: Patient has bilateral stasis dermatitis. Erythema and tenderness in the lower extremities seem to be improving Continue IV antibiotics Currently on IV ceftriaxone. (4) Diabetes Current Visit: Yes Status: Chronic Assessment and Plan: Accu-Cheks Insulin sliding scale. (5) Pulmonary hypertension Current Visit: Yes Status: Chronic Assessment and Plan: Her echo showed moderate to severe pulmonary hypertension and severe TR Patient has been counseled on the prognosis of his diagnosis. Palliative care following. DVT Prophylaxis: SQ Heparin - Time Spent with Patient Total time spent is greater than 50% in coordination of care (as documented) at patient's floor/unit and/or counseling patient: Internal Medicine: Result - Labs CBC & Chem 7: 07/22/19 04:35 07/22/19 04:35 Labs: Short CBC 07/22/19 Range/Units 04:35 WBC 11.1 (4.3-11.1) K/mcL Hgb 9.4 L (11.5-15.4) g/dL Hct 29.7 L (35.3-44.9) % Plt Count 226 (140-400) K/mcL BMP 07/22/19 04:35 Sodium 134 L Potassium 4.0 Chloride 98 Carbon Dioxide 25 BUN 53 H Creatinine 2.85 H Glucose 124 H Calcium 8.4 L - ABG Interpretation ABG results: PT/INR, D-dimer PT 18.9 Seconds (9.4-12.1) H 07/20/19 03:45 - VTE Reasons for not Prescribing Prophylaxis: Medical contraindication Consult Discharge Plan - Plan Referrals: NONE,PCP [Primary Care Provider] - (2) CHF (congestive heart failure) Qualifiers: Heart failure type: diastolic Heart failure chronicity: acute on chronic Qualified Code(s): I50.33 - Acute on chronic diastolic (congestive) heart failure (4) Diabetes Qualifiers: Diabetes mellitus type: type 2 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
[2019-07-22] MEDS: Benzonatate 100 MG CAPSULE PO PRN (13:17)
[2019-07-22] MEDS: Tiotropium 18 MCG inhalation IH SCH (15:41)
[2019-07-22] MEDS: Vitamin B Complex/Vit C/Vit E 1 EACH TABLET PO SCH (17:05)
[2019-07-22] MEDS: Baclofen 10 MG TABLET PO SCH (21:09)
[2019-07-23] MEDS: *HR* Amiodarone 200 MG TABLET PO SCH ×3 (04:33→21:41)
[2019-07-23] MEDS: Nystatin POWDER 30 GM BOTTLE TP SCH ×3 (04:34→22:26)
[2019-07-23 04:43] LABS: Hematocrit 28.1 % (35.3-44.9); Hemoglobin 8.9 g/dL (11.5-15.4); Mean Corpuscular HGB Conc 31.7 g/dL (31.6-35.5); Mean Corpuscular Hemoglobin 35.7 pg (28.0-33.3); Mean Corpuscular Volume 112.9 fL (83.0-100.0); Mean Platelet Volume 12.2 fL (9.4-12.4); Platelet Count 212 K/mcL (140-400); Red Blood Count 2.49 M/mcL (3.82-4.97); Red Cell Distribution Width 19.1 % (11.5-14.5); White Blood Count 9.4 K/mcL (4.3-11.1)
[2019-07-23 04:57] LABS: Calcium 8.4 mg/dL (8.6-10.3); Potassium 3.9 mEq/L (3.5-5.1)
[2019-07-23] MEDS: *HR* Heparin 5,000 UNIT/ML VIAL SQ SCH ×3 (05:49→22:26)
[2019-07-23] MEDS: Ascorbic Acid 500 MG TABLET PO SCH (05:49)
[2019-07-23] MEDS: traMADol 50 MG TABLET PO PRN ×2 (05:49→18:22)
[2019-07-23] MEDS ORDERED: 0.9 % Sodium Chloride 250 ML IVC PRN (06:58)
[2019-07-23] MEDS ORDERED: 0.9 % Sodium Chloride 1,000 ML PRIME SCH (07:00)
[2019-07-23] MEDS: Budesonide/Formoterol 80/4.5 1 PUFF INH IH SCH ×2 (07:32→22:35)
[2019-07-23] MEDS: Tiotropium 18 MCG inhalation IH SCH (07:36)
[2019-07-23] MEDS: Bumetanide 1 MG TABLET PO SCH ×2 (09:20→18:22)
[2019-07-23] MEDS: Cholecalciferol (D-3) 1,000 UNIT (25MCG) TABLET PO SCH (09:21)
[2019-07-23] MEDS: *HR* HYDROcodone/Acet 5/325 mg TABLET PO SCH (09:21)
[2019-07-23] MEDS: Isosorbide MONOnitrate (24 HR) 60 MG TAB.ER.24H PO SCH (09:22)
[2019-07-23] MEDS: FLUoxetine 20 MG CAPSULE PO SCH (09:23)
[2019-07-23] MEDS: Carbidopa/Levodopa 25/100 TABLET PO SCH ×2 (09:23→21:45)
[2019-07-23] MEDS: cefTRIAXone 1,000 MG in Water for inj. (sterile) 10 ML IVP SCH (09:24)
[2019-07-23] MEDS: Insulin LISPRO 300 UNITS/3 ML VIAL SQ SCH ×3 (09:24→17:18)
--- NOTE | 2019-07-23 11:39 | Palliative Progress Note ---
Date of Encounter: 07/23/19 Time of Encounter: 11:39 - Assessment and plan (1) Advance care planning Current Visit: Yes Status: Acute Assessment and plan: Patient had 2 sessions of HD, and per nephrology, will need a tunnelled cath. Patient is agreeable with long-term HD. Revisited code status discussion, pt continues to want all to be done to prolong her life and remains Full Code. Patient has a bedhold at [facility], will likely need a long-term HD. Goals are clear. Thank you for allowing Palliative care to participate in the care of this patient, will sign off. Please reconsult prn. (2) Leg pain, bilateral Current Visit: Yes Status: Acute Assessment and plan: Patient is on [place] 1 pill AM and HS. Patient had the pill 1 hour ago and still appears in pain. States it does not help. Recommend increase norco to 10-325 mg, and change frequency of acetaminophen to q6hrs prn, to avoid acetaminophen toxicity. (3) Acute kidney injury superimposed on CKD Current Visit: Yes Status: Acute Assessment and plan: Nephrology on board, current HD (4) Palliative care encounter Current Visit: Yes Status: Acute (5) Pulmonary hypertension Current Visit: Yes Status: Chronic (6) CHF (congestive heart failure) Current Visit: Yes Status: Acute Qualifiers: Heart failure type: diastolic Heart failure chronicity: acute on chronic Qualified Code(s): I50.33 - Acute on chronic diastolic (congestive) heart failure - Time Spent With Patient Total time spent is greater than 50% in coordination of care (as documented) at patient's floor/unit and/or counseling patient: 25 - 35 minutes - Subjective Interval history: Patient complaining of leg pains. Pain is present at rest and worsened by moving and touch. This is a chronic pain and pt at home takes [place] twice a day. However she denies any relief from the medication. - Constitutional Vitals: Abnormal lab results WBC 14.1 K/mcL (4.3-11.1) H 07/21/19 04:10 RBC 2.49 M/mcL (3.82-4.97) L 07/23/19 04:10 Hgb 8.9 g/dL (11.5-15.4) L 07/23/19 04:10 Hct 28.1 % (35.3-44.9) L 07/23/19 04:10 MCV 112.9 fL (83.0-100.0) H 07/23/19 04:10 MCH 35.7 pg (28.0-33.3) H 07/23/19 04:10 MCHC 31.5 g/dL (31.6-35.5) L 07/20/19 03:45 RDW 19.1 % (11.5-14.5) H 07/23/19 04:10 Neutrophils # 11.8 K/mcL (1.6-8.9) H 07/21/19 04:10 Lymphocytes # 0.5 K/mcL (0.6-4.6) L 07/20/19 03:45 Nucleated RBCs/100 WBC 0.2 /100 WBC (0) H 07/21/19 04:10 Polychromasia 1+ (Not Present) A 07/20/19 03:45 Hypochromasia Present (Not Present) A 07/19/19 01:37 Anisocytosis 1+ (Not Present) A 07/20/19 03:45 Macrocytosis Present (Not Present) A 07/20/19 03:45 PT 18.9 Seconds (9.4-12.1) H 07/20/19 03:45 Sodium 135 mEq/L (136-145) L 07/23/19 04:10 Potassium 5.2 mEq/L (3.5-5.1) H 07/20/19 03:45 Chloride 97 mEq/L (98-107) L 07/21/19 04:10 Carbon Dioxide 19 mEq/L (23-29) L 07/20/19 03:45 BUN 61 mg/dL (8-23) H 07/23/19 04:10 Creatinine 3.54 mg/dL (0.60-1.20) H 07/23/19 04:10 Est GFR ( Amer) 15 (> 60) L 07/23/19 04:10 Est GFR (Non-Af Amer) 12 (> 60) L 07/23/19 04:10 Glucose 121 mg/dL (70-105) H 07/23/19 04:10 POC Glucose 121 mg/dL (70-99) H 07/23/19 07:36 Hemoglobin A1c 7.6 % (-5.6) H 07/19/19 01:22 Serum Osmolality 305 mOsm/kg (280-300) H 07/20/19 16:41 Calculated Osmolality 305 (280-300) H 07/20/19 03:45 Calcium 8.4 mg/dL (8.6-10.3) L 07/23/19 04:10 Phosphorus 7.5 mg/dL (2.7-4.5) H 07/20/19 03:45 ALT 5 Units/L (7-52) L 07/19/19 01:29 Alkaline Phosphatase 126 Units/L (34-104) H 07/20/19 03:45 Troponin I 0.09 ng/mL (< 0.04) H* 07/20/19 03:45 Serum Total Protein 6.1 g/dL (6.4-8.9) L 07/20/19 03:45 Albumin 3.1 g/dL (3.5-5.7) L 07/20/19 03:45 Albumin/Globulin Ratio 1.0 (1.1-2.2) L 07/20/19 03:45 Procalcitonin 0.44 ng/mL (0.00-0.15) H 07/19/19 03:36 TSH 11.515 mcIU/mL (0.340-5.600) H 07/19/19 03:36 Thyroxine (T4) 5.07 mcg/dL (5.50-11.00) L 07/19/19 03:36 Urine Clarity Turbid (Clear) A 07/19/19 02:19 Ur Specific Rex 1.029 (1.010-1.025) H 07/19/19 02:19 Urine Protein 100 mg/dL (Neg-Trace) H 07/19/19 02:19 Urine Ketones Trace mg/dL (Negative) H 07/19/19 02:19 Urine Blood Large (Negative) H 07/19/19 02:19 Urine Bilirubin Small (Negative) H 07/19/19 02:19 Ur Leukocyte Esterase Large (Negative) H 07/19/19 02:19 Urine Microscopic RBC 30-50 per hpf (0-3) H 07/19/19 02:19 Urine Microscopic WBC TNTC per hpf (0-3) H 07/19/19 02:19 Ur Squamous Epith Cells Many per lpf (None-Few) H 07/19/19 02:19 Urine Bacteria Many per hpf (None-Few) H 07/19/19 02:19 Urine Yeast Many per hpf (None Seen) H 07/19/19 02:19 Nasal Screen MRSA (PCR) DETECTED (Not Detect) A 07/19/19 18:40 Complement C3 81 mg/dL (87-200) L 07/20/19 16:16 Hep Bs Antibody 6.87 mIU/mL (10.00-) L 07/19/19 03:36 Exam: Vitals reviewed General appearance: morbidly obese, in no acute distress Eyes: nonicteric, EOMI EENT: oropharynx moist Neck: Dialysis catheter in place in R IJ Chest: bilateral: distant breath sounds, normal effort Cardiovascular: regular rate and rhythm, no murmur, rub, gallop Gastrointestinal: soft, non-tender, non-distended Extremities: no cyanosis, b/l venostatic changes on LE Neurologic: AAOx3, non-focal exam Psych: mood appropriate, affect normal Palliative Quality Palliative Quality: Screen for Code Status: Yes, Screen for Goals of Care: Yes, Screen for Pain: Yes, If Pain Regimen Started, Initiate Bowel Regimen: NA, Screen for Nausea/Vomitting: NA Code Status: 07/18/19 23:56 Resuscitation Status: Active [RES] Routine Comment: Resuscitation Status: Full Code - Labs CBC & Chem 7: 07/23/19 04:10 07/23/19 04:10 Labs: Laboratory Results - last 24 hr 07/22/19 07/22/19 07/22/19 07:09 11:51 15:59 WBC RBC Hgb Hct MCV MCH MCHC RDW Plt Count MPV Sodium Potassium Chloride Carbon Dioxide BUN Creatinine Est GFR ( Amer) Est GFR (Non-Af Amer) BUN/Creatinine Ratio Glucose POC Glucose 130 H 146 H 157 H Calculated Osmolality Calcium 07/22/19 07/23/19 07/23/19 20:40 04:10 04:10 WBC 9.4 RBC 2.49 L Hgb 8.9 L Hct 28.1 L MCV 112.9 H MCH 35.7 H MCHC 31.7 RDW 19.1 H Plt Count 212 MPV 12.2 Sodium 135 L Potassium 3.9 Chloride 100 Carbon Dioxide 28 BUN 61 H Creatinine 3.54 H Est GFR ( Amer) 15 L Est GFR (Non-Af Amer) 12 L BUN/Creatinine Ratio 17 Glucose 121 H POC Glucose 129 H Calculated Osmolality 299 Calcium 8.4 L 07/23/19 07:36 WBC RBC Hgb Hct MCV MCH MCHC RDW Plt Count MPV Sodium Potassium Chloride Carbon Dioxide BUN Creatinine Est GFR ( Amer) Est GFR (Non-Af Amer) BUN/Creatinine Ratio Glucose POC Glucose 121 H Calculated Osmolality Calcium - ABG Interpretation ABG results: PT/INR, D-dimer PT 18.9 Seconds (9.4-12.1) H 07/20/19 03:45 Palliative Scale - Palliative Performance Scale How ambulatory is this patient?: Mainly sit / lie What is patient's level of activity and evidence of disease?: Unable normal job/work, Significant disease How much self-care assistance does patient require?: Considerable assistance r equired How much oral intake does the patient have?: Normal What is this patient's level of consciousness?: Full Palliative Performance Score: 50 % Consult Discharge Plan - Plan Referrals: NONE,PCP [Primary Care Provider] -
--- NOTE | 2019-07-23 12:26 | Internal Med Progress Note ---
Hospitalist Progress Note - Encounter Date of Encounter: 07/23/19 Time of Encounter: 08:40 - Subjective Interval History: No acute events overnight. Patient states that she feels better than yesterday but still weak. She denies fever, chills, chest pain and worsening SOB. - Exam Vitals: Temp Pulse Resp BP Pulse Ox 36.4 C 73 17 97/55 95 07/23/19 11:36 07/23/19 11:36 07/23/19 11:36 07/23/19 11:36 07/23/19 11:36 Exam: GENERAL: Not in distress. Alert and Oriented HEENT: EOMI, PERRLA MOUTH: Moist oral mucosa NECK:No JVD, No lymph nodes. CHEST AND LUNGS: Transmitted sounds, no wheezes or crackles HEART: S1 and S2 normal, no murmurs ABDOMEN: Soft, nontender, no organomegaly SKIN: Normal color, no rahses, no lesions EXTREMITIES: +3 bipedal edema, bilateral venostasis dermatitis. Erythema and tenderness on the floor extremities is improving. NEUROLOGICAL: Normal cognition, normal motor and sensory exam. - Assessment and Plan (1) Acute kidney injury superimposed on CKD Current Visit: Yes Status: Acute Assessment and Plan: Nephrology on board board and following. Patient scheduled for dialysis today She will need tunneled catheter placement tomorrow per nephro. Attempts will be made to secure a center for outpatient dialysis patient. (2) CHF (congestive heart failure) Current Visit: Yes Status: Acute Assessment and Plan: Patient is still on oxygen via nasal cannula Scheduled for dialysis today for more fluid removal We will continue daily I&O's and weights. Monitor (3) Left leg cellulitis Current Visit: Yes Status: Acute Assessment and Plan: Patient has bilateral stasis dermatitis. Erythema and tenderness in the lower extremities continues to improve Continue IV antibiotics Currently on IV ceftriaxone. (4) Diabetes Current Visit: Yes Status: Chronic Assessment and Plan: Accu-Cheks Insulin sliding scale. (5) Pulmonary hypertension Current Visit: Yes Status: Chronic Assessment and Plan: Her echo showed moderate to severe pulmonary hypertension and severe TR Patient has been counseled on the prognosis of his diagnosis. Palliative care following. DVT Prophylaxis: SQ Heparin - Time Spent with Patient Total time spent is greater than 50% in coordination of care (as documented) at patient's floor/unit and/or counseling patient: Internal Medicine: Result - Labs CBC & Chem 7: 07/23/19 04:10 07/23/19 04:10 Labs: Short CBC 07/23/19 Range/Units 04:10 WBC 9.4 (4.3-11.1) K/mcL Hgb 8.9 L (11.5-15.4) g/dL Hct 28.1 L (35.3-44.9) % Plt Count 212 (140-400) K/mcL BMP 07/23/19 04:10 Sodium 135 L Potassium 3.9 Chloride 100 Carbon Dioxide 28 BUN 61 H Creatinine 3.54 H Glucose 121 H Calcium 8.4 L - ABG Interpretation ABG results: PT/INR, D-dimer PT 18.9 Seconds (9.4-12.1) H 07/20/19 03:45 - VTE Reasons for not Prescribing Prophylaxis: Medical contraindication Consult Discharge Plan - Plan Referrals: NONE,PCP [Primary Care Provider] - (2) CHF (congestive heart failure) Qualifiers: Heart failure type: diastolic Heart failure chronicity: acute on chronic Qualified Code(s): I50.33 - Acute on chronic diastolic (congestive) heart failure (4) Diabetes Qualifiers: Diabetes mellitus type: type 2 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
--- NOTE | 2019-07-23 13:49 | Nephrology Progress Note ---
Date of Encounter: 07/23/19 Time of Encounter: 09:00 (Time estimated) - Assessment and Plan (1) Acute kidney injury superimposed on CKD Current Visit: Yes Status: Acute (2) CKD (chronic kidney disease) stage 3, GFR 30-59 ml/min Current Visit: No Status: Chronic (3) Hyponatremia Current Visit: Yes Status: Acute (4) Hyperkalemia Current Visit: Yes Status: Acute (5) Metabolic acidosis Current Visit: Yes Status: Acute Subjective Principal diagnosis: [place] on CKD Interval history: Patient feels worse than yesterday. Complains of thick mucus which she is trying to cough up. Physical exam Gen.: Elderly female. Reclining in bed Skin: Turgor around 2 seconds Eyes: Moist. Anicteric. Cardiac: At least 3/6 systolic murmur best heard over pulmonic post. Mitral post not auscultated. Respiratory: Decreased lung sounds in the right base posteriorly. Left basilar crackles posteriorly. Right posterior middle field crackles. Left upper hagan not auscultated. Extremities: Pitting edema to the knee bilaterally with venous stasis changes. Capillary refill less than 2 seconds upper extremities bilaterally. A/P #[place] on CKD IIIB with oliguria Suspect most likely secondary to ATN. Do not suspect postrenal. Has not responded to fluids making prerenal less likely. Retroperitoneal ultrasound 07/19 significant only for increased echogenicity of the renal parenchyma bilaterally. C3 decreased at 81 C4 WNL FE urea using urea levels from 07/19 and creatinine levels from /6 is 2.9%, suggesting component of prerenal disease. -BUN increased -Creatinine increased -EMILY, ANCA, serum free light chain analysis, SPEP, UPEP pending -Renal replacement therapy with hemodialysis today. #CKD Stage IIIB GFR baseline recently in about the 30s -Current estimated GFR 12 -Avoid nephrotoxins -renal replacement therapy -Permacath placement -Social work consulted for dialysis chair time in the setting of dialysis dependent [place]. #Hyponatremia Consider mixed picture Initially 131 Likely hypervolemic -Calculated serum osmolality initially slightly elevated favors skewed lab results from other serum solute causing transcellular shift into vasculature. Would expect low serum osmolality with congestive heart failure etiology. Actual Serum osmolality / slightly elevated at 305. -Urine osmolality greater than 285 favors some component of ADH involvement -Currently 135 -Improving. Continue to monitor #Hyperkalemia Consider secondary to transcellular shifts in the setting of acidosis Initially 5.2 -Resolved #NAGMA Diarrhea documented on progress note. C. difficile negative -Serum bicarbonate low at 19 on 07/20 -Resolved Objective - Vital Signs Vital signs: Vital Signs Temp Pulse Resp BP Pulse Ox 07/23/19 11:36 97.6 F 73 17 97/55 95 07/23/19 07:43 98.2 F 65 17 117/73 100 07/23/19 07:36 18 97 07/23/19 04:48 97.8 F 64 17 118/62 96 07/23/19 00:31 98.1 F 67 18 89/58 97 07/22/19 22:07 18 98 07/22/19 20:38 97.8 F 62 20 84/50 99 07/22/19 15:51 97.5 F L 75 20 110/49 100 Intake and Output 07/22/19 07/23/19 07/23/19 23:59 07:59 15:59 Intake Total 0 / 70 0 / 220 220 / 220 Output Total 100 / 300 100 / 100 Balance -100 / -230 -100 / 120 220 / 120 Intake: Oral 0 / 60 0 / 220 220 / 220 Output: Catheter 100 / 300 100 / 100 Other: Meal Breakfast Percent of Meal Consumed 40% Stool Size Smear Stool Consistency soft Stool Color Brown # Bowel Movements 1 Weight 115.4 kg Blood Glucose* 129 121 139 Patient Weight 07/23/19 23:59 Weight 115.4 kg - Lab 07/23/19 04:10 07/23/19 04:10 Most recent lab results 07/23/19 04:10 Calcium 8.4 L Consult Discharge Plan - Plan Referrals: NONE,PCP [Primary Care Provider] -
[2019-07-23] MEDS ORDERED: Acetaminophen 325 MG TABLET PO PRN (14:31)
[2019-07-23] MEDS: *HR* Digoxin 0.125 MG TABLET PO SCH (18:27)
[2019-07-23] MEDS: Vitamin B Complex/Vit C/Vit E 1 EACH TABLET PO SCH (18:27)
[2019-07-23] MEDS: Baclofen 10 MG TABLET PO SCH (21:42)
[2019-07-23] MEDS: *HR* HYDROcodone/Acet 10/325 mg TABLET PO SCH (21:45)
[2019-07-24 04:31] LABS: Hematocrit 31.5 % (35.3-44.9); Hemoglobin 9.9 g/dL (11.5-15.4); Mean Corpuscular HGB Conc 31.4 g/dL (31.6-35.5); Mean Corpuscular Hemoglobin 35.9 pg (28.0-33.3); Mean Corpuscular Volume 114.1 fL (83.0-100.0); Platelet Count 181 K/mcL (140-400); Red Blood Count 2.76 M/mcL (3.82-4.97); Red Cell Distribution Width 19.3 % (11.5-14.5); White Blood Count 10.4 K/mcL (4.3-11.1)
[2019-07-24 04:51] LABS: Calcium 8.1 mg/dL (8.6-10.3); Potassium 3.9 mEq/L (3.5-5.1)
[2019-07-24] MEDS: Ascorbic Acid 500 MG TABLET PO SCH (05:11)
[2019-07-24] MEDS: *HR* Heparin 5,000 UNIT/ML VIAL SQ SCH ×3 (05:39→19:51)
[2019-07-24] MEDS: Budesonide/Formoterol 80/4.5 1 PUFF INH IH SCH ×2 (08:04→20:14)
[2019-07-24] MEDS: Tiotropium 18 MCG inhalation IH SCH (08:05)
[2019-07-24] MEDS: Insulin LISPRO 300 UNITS/3 ML VIAL SQ SCH ×3 (08:29→16:20)
[2019-07-24] MEDS: Cholecalciferol (D-3) 1,000 UNIT (25MCG) TABLET PO SCH (08:36)
[2019-07-24] MEDS: *HR* HYDROcodone/Acet 10/325 mg TABLET PO SCH (08:37)
[2019-07-24] MEDS: Bumetanide 1 MG TABLET PO SCH ×2 (08:37→17:07)
[2019-07-24] MEDS: *HR* Amiodarone 200 MG TABLET PO SCH ×2 (08:40→19:47)
[2019-07-24] MEDS: FLUoxetine 20 MG CAPSULE PO SCH (08:40)
[2019-07-24] MEDS: Carbidopa/Levodopa 25/100 TABLET PO SCH ×2 (08:41→19:47)
[2019-07-24] MEDS: Isosorbide MONOnitrate (24 HR) 60 MG TAB.ER.24H PO SCH (08:41)
[2019-07-24] MEDS: Nystatin POWDER 30 GM BOTTLE TP SCH ×2 (08:42→19:48)
[2019-07-24] MEDS: cefTRIAXone 1,000 MG in Water for inj. (sterile) 10 ML IVP SCH (08:58)
--- NOTE | 2019-07-24 09:27 | Nephrology Progress Note ---
Date of Encounter: 07/24/19 Time of Encounter: 06:35 (Time estimated) - Assessment and Plan (1) Acute kidney injury superimposed on CKD Current Visit: Yes Status: Acute (2) CKD (chronic kidney disease) stage 3, GFR 30-59 ml/min Current Visit: No Status: Chronic (3) Hyponatremia Current Visit: Yes Status: Acute (4) Hyperkalemia Current Visit: Yes Status: Acute (5) Metabolic acidosis Current Visit: Yes Status: Acute Subjective Principal diagnosis: [place] on CKD Interval history: Subjective Patient feels better today. Complains of continued cough. Complains of diarrhea. Objective Physical exam Gen.: Elderly female. Resting in bed. Skin: Poor turgor Eyes: Moist. Anicteric Cardiac: S1, S2. At least 3/6 systolic murmur best heard over pulmonic post Respiratory: Distant lung sounds. Crackles in the base, middle, and upper hagan posteriorly on the right. Crackles of left base and middle hagan and complicated by patient positioning Extremities: Capillary refill less than 2 seconds bilateral upper extremities. Pitting edema bilaterally somewhat improved but continues to be present above the knee. Psych: Appropriate mood and behavior. Answers questions coherently A/P #[place] on CKD IIIB with oliguria Suspect most likely secondary to ATN. Do not suspect postrenal. Has not responded to fluids making prerenal less likely. Retroperitoneal ultrasound 07/19 significant only for increased echogenicity of the renal parenchyma bilaterally. C3 decreased at 81 C4 WNL EMILY negative, ANCA (myeloperoxidase antibodies, serine protease 3 ab) negative FE urea using urea levels from 07/19 and creatinine levels from 07/20 is 2.9%, suggesting component of prerenal disease. -serum free light chain analysis, SPEP, UPEP pending -Continue Renal replacement therapy with hemodialysis. -Permacath not placed secondary to INR of 1.6. Recheck showed INR of 1.5 and placement planned for tomorrow. #CKD Stage IIIB GFR baseline recently in about the 30s -Avoid nephrotoxins -renal replacement therapy -Social work consulted for dialysis chair time in the setting of dialysis dependent [place]. #Diarrhea patient self-reported -per primary #Hyponatremia Consider mixed picture Initially 131 Likely hypervolemic -Calculated serum osmolality initially slightly elevated favors skewed lab results from other serum solute causing transcellular shift into vasculature. Would expect low serum osmolality with congestive heart failure etiology. Actual Serum osmolality 07/20 slightly elevated at 305. -Urine osmolality greater than 285 favors some component of ADH involvement -Currently 135 -Resolved #Hyperkalemia Consider secondary to transcellular shifts in the setting of acidosis Initially 5.2 -Resolved #NAGMA Diarrhea documented on progress note. C. difficile negative -Serum bicarbonate low at 19 on 07/20 -Resolved Objective - Vital Signs Vital signs: Vital Signs Temp Pulse Resp BP Pulse Ox 07/24/19 08:07 18 98 07/24/19 07:07 97.6 F 64 20 104/53 99 07/24/19 04:07 97.6 F 75 17 128/67 100 07/23/19 23:40 97.6 F 65 15 103/60 96 07/23/19 22:35 16 98 07/23/19 19:53 97.6 F 73 14 120/81 100 07/23/19 18:40 98.1 F 18 129/71 07/23/19 18:25 110/66 07/23/19 18:10 102/65 07/23/19 17:55 105/58 07/23/19 17:40 106/53 07/23/19 17:25 108/61 07/23/19 17:10 101/54 07/23/19 16:55 108/55 07/23/19 16:40 105/56 07/23/19 16:25 102/54 07/23/19 16:10 99/63 07/23/19 15:55 102/64 07/23/19 15:40 110/62 07/23/19 15:25 98.1 F 16 109/63 07/23/19 11:36 97.6 F 73 17 97/55 95 Intake and Output 07/23/19 07/24/19 07/24/19 23:59 07:59 15:59 Output Total 2600 / 2700 Balance -2600 / -1820 Output: Urine 0 / 0 Total Dialysis (HD) Output 2600 / 2600 Other: Weight 112.5 kg Blood Glucose* 118 124 Hemodialysis Net Fluid Removed 2000 (mL) - Lab 07/24/19 04:08 07/24/19 04:08 Most recent lab results 07/24/19 04:08 Calcium 8.1 L Consult Discharge Plan - Plan Referrals: NONE,PCP [Primary Care Provider] -
[2019-07-24 10:25] LABS: ANA IgG by ELISA NONE DETECTED (None Detected); Serine Protease-3 Antibody 0 AU/mL (0-19)
[2019-07-24 10:27] LABS: INR 1.6; Prothrombin Time 17.8 Seconds (9.4-12.1)
--- NOTE | 2019-07-24 12:34 | Internal Med Progress Note ---
Hospitalist Progress Note - Encounter Date of Encounter: 07/24/19 - Exam Vitals: Temp Pulse Resp BP Pulse Ox 36.9 C 63 20 108/52 99 07/24/19 11:40 07/24/19 11:40 07/24/19 11:40 07/24/19 11:40 07/24/19 11:40 - Assessment and Plan (1) Acute kidney injury superimposed on CKD Current Visit: Yes Status: Acute (2) CHF (congestive heart failure) Current Visit: Yes Status: Acute (3) Left leg cellulitis Current Visit: Yes Status: Acute (4) Diabetes Current Visit: Yes Status: Chronic (5) Pulmonary hypertension Current Visit: Yes Status: Chronic - Time Spent with Patient Total time spent is greater than 50% in coordination of care (as documented) at patient's floor/unit and/or counseling patient: Internal Medicine: Result - Labs CBC & Chem 7: 07/24/19 04:08 07/24/19 04:08 Labs: Short CBC 07/24/19 Range/Units 04:08 WBC 10.4 (4.3-11.1) K/mcL Hgb 9.9 L (11.5-15.4) g/dL Hct 31.5 L (35.3-44.9) % Plt Count 181 (140-400) K/mcL BMP 07/24/19 04:08 Sodium 137 Potassium 3.9 Chloride 99 Carbon Dioxide 27 BUN 39 H Creatinine 2.68 H Glucose 108 H Calcium 8.1 L - ABG Interpretation ABG results: PT/INR, D-dimer PT 17.8 Seconds (9.4-12.1) H 07/24/19 09:48 - VTE Reasons for not Prescribing Prophylaxis: Medical contraindication Consult Discharge Plan - Plan Referrals: NONE,PCP [Primary Care Provider] - (2) CHF (congestive heart failure) Qualifiers: Heart failure type: diastolic Heart failure chronicity: acute on chronic Bro lified Code(s): I50.33 - Acute on chronic diastolic (congestive) heart failure (4) Diabetes Qualifiers: Diabetes mellitus type: type 2 Diabetes mellitus tank terminal gauger insulin use: with tank terminal gauger use Diabetes mellitus complication status: with kidney complications Diabetes mellitus complication detail: with chronic kidney disease Chronic kidney disease stage: stage 4 (severe) Qualified Code(s): E11.22 - Type 2 diabetes mellitus with diabetic chronic kidney disease; N18.4 - Chronic kidney disease, stage 4 (severe); Z79.4 - buttermaker (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
--- NOTE | 2019-07-24 12:55 | Event Note ---
Date of Encounter: 07/24/19 Time of Encounter: 12:54 Spoke with IR, INR is 1.6, prefer 1.5. Renal diet resumed until tonight at midnight. IR will attempt to place Tunneled line tomorrow. INR ordered for in the morning. Discussed with Dr. Ngo.
[2019-07-24 13:06] LABS: INR 1.5; Prothrombin Time 17.4 Seconds (9.4-12.1)
[2019-07-24] MEDS ORDERED: Heparin 1,000 UNITS/500 mL 500 ML ONE (14:10)
--- NOTE | 2019-07-24 14:54 | Internal Med Progress Note ---
Hospitalist Progress Note - Encounter Date of Encounter: 07/24/19 Time of Encounter: 11:00 - Subjective Interval History: Pt seen and examined. She reports that she felt weak in the morning but now feels much better. She denies nausea, vomiting and abdominal pain but admits loose stools. - Exam Vitals: Temp Pulse Resp BP Pulse Ox 36.9 C 63 20 108/52 99 07/24/19 11:40 07/24/19 11:40 07/24/19 11:40 07/24/19 11:40 07/24/19 11:40 Exam: GENERAL: Not in distress. Alert and Oriented HEENT: EOMI, PERRLA MOUTH: Moist oral mucosa NECK:No JVD, No lymph nodes. CHEST AND LUNGS: Transmitted sounds, no wheezes or crackles HEART: S1 and S2 normal, no murmurs ABDOMEN: Soft, nontender, no organomegaly SKIN: Normal color, no rahses, no lesions EXTREMITIES: +3 bipedal edema, bilateral venous stasis dermatitis. Erythema and tenderness in the lower extremities is improving. NEUROLOGICAL: Normal cognition, normal motor and sensory exam. - Assessment and Plan (1) Acute kidney injury superimposed on CKD Current Visit: Yes Status: Acute Assessment and Plan: Nephrology on board board and following. Patient is scheduled for tunneled catheter placement today by IR. (2) CHF (congestive heart failure) Current Visit: Yes Status: Acute Assessment and Plan: Patient is still on oxygen via nasal cannula Few bibasilar crackles on exam +2 bipedal pitting edema Scheduled for tunneled catheter placement by IR so she can continue dialysis as oupatient. (3) Left leg cellulitis Current Visit: Yes Status: Acute Assessment and Plan: Patient has bilateral stasis dermatitis. Erythema and tenderness in the lower extremities continues to improve Continue IV antibiotics Currently on IV ceftriaxone. (4) Diabetes Current Visit: Yes Status: Chronic Assessment and Plan: Accu-Cheks Insulin sliding scale. (5) Pulmonary hypertension Current Visit: Yes Status: Chronic Assessment and Plan: Her echo showed moderate to severe pulmonary hypertension and severe TR Patient has been counseled on the prognosis of his diagnosis. Palliative care following. DVT Prophylaxis: SQ Heparin - Time Spent with Patient Total time spent is greater than 50% in coordination of care (as documented) at patient's floor/unit and/or counseling patient: Internal Medicine: Result - Labs CBC & Chem 7: 09/10/19 04:08 07/24/19 04:08 Labs: Short CBC 07/24/19 Range/Units 04:08 WBC 10.4 (4.3-11.1) K/mcL Hgb 9.9 L (11.5-15.4) g/dL Hct 31.5 L (35.3-44.9) % Plt Count 181 (140-400) K/mcL BMP 07/24/19 04:08 Sodium 137 Potassium 3.9 Chloride 99 Carbon Dioxide 27 BUN 39 H Creatinine 2.68 H Glucose 108 H Calcium 8.1 L - ABG Interpretation ABG results: PT/INR, D-dimer PT 17.4 Seconds (9.4-12.1) H 07/24/19 12:29 - VTE Reasons for not Prescribing Prophylaxis: Medical contraindication Consult Discharge Plan - Plan Referrals: NONE,PCP [Primary Care Provider] - (2) CHF (congestive heart failure) Qualifiers: Qualified Code(s): I50.33 - Acute on chronic diastolic (congestive) heart failure (4) Diabetes Qualifiers: Qualified Code(s): E11.22 - Type 2 diabetes mellitus with diabetic chronic kidney disease; N18.4 - Chronic kidney disease, stage 4 (severe); Z79.4 - [facility] (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
[2019-07-24] MEDS ORDERED: *HR* Heparin 5,000 UNIT/ML VIAL ONE (15:17)
[2019-07-24 15:25] LABS: Kappa Qnt Free Light Chains 4.34 mg/dL (0.33-1.94); Lambda Qnt Free Light Chains 2.42 mg/dL (0.57-2.63)
[2019-07-24] MEDS: Calcium Acetate 667 MG CAPSULE PO SCH (17:07)
[2019-07-24] MEDS: Vitamin B Complex/Vit C/Vit E 1 EACH TABLET PO SCH (17:08)
[2019-07-24] MEDS: Baclofen 10 MG TABLET PO SCH (19:47)
[2019-07-25] MEDS: *HR* Heparin 5,000 UNIT/ML VIAL SQ SCH ×3 (05:21→20:48)
[2019-07-25] MEDS: Ascorbic Acid 500 MG TABLET PO SCH (05:22)
[2019-07-25 05:44] LABS: Hematocrit 30.6 % (35.3-44.9); Hemoglobin 9.4 g/dL (11.5-15.4); Mean Corpuscular HGB Conc 30.7 g/dL (31.6-35.5); Mean Corpuscular Hemoglobin 35.1 pg (28.0-33.3); Mean Corpuscular Volume 114.2 fL (83.0-100.0); Mean Platelet Volume 12.2 fL (9.4-12.4); Platelet Count 181 K/mcL (140-400); Red Blood Count 2.68 M/mcL (3.82-4.97); Red Cell Distribution Width 19.3 % (11.5-14.5); White Blood Count 9.5 K/mcL (4.3-11.1)
[2019-07-25 05:59] LABS: INR 1.5; Prothrombin Time 17.5 Seconds (9.4-12.1)
[2019-07-25 06:03] LABS: Calcium 8.5 mg/dL (8.6-10.3); Potassium 4.3 mEq/L (3.5-5.1)
[2019-07-25 07:01] LABS: Alpha 2 Globulin (PEP) 0.76 g/dL (0.48-1.05); Beta Globulin (PEP) 0.58 g/dL (0.48-1.10)
[2019-07-25] MEDS ORDERED: 0.9 % Sodium Chloride 250 ML IVC PRN (07:19)
[2019-07-25] MEDS: Budesonide/Formoterol 80/4.5 1 PUFF INH IH SCH ×2 (07:35→21:17)
[2019-07-25] MEDS: Tiotropium 18 MCG inhalation IH SCH (07:35)
[2019-07-25] MEDS: FLUoxetine 20 MG CAPSULE PO SCH (08:21)
[2019-07-25] MEDS: Bumetanide 1 MG TABLET PO SCH ×2 (08:21→16:55)
[2019-07-25] MEDS: Carbidopa/Levodopa 25/100 TABLET PO SCH ×2 (08:22→20:48)
[2019-07-25] MEDS: *HR* Amiodarone 200 MG TABLET PO SCH ×2 (08:22→20:48)
[2019-07-25] MEDS: Calcium Acetate 667 MG CAPSULE PO SCH ×3 (08:22→16:55)
[2019-07-25] MEDS: cefTRIAXone 1,000 MG in Water for inj. (sterile) 10 ML IVP SCH (08:22)
[2019-07-25] MEDS: Isosorbide MONOnitrate (24 HR) 60 MG TAB.ER.24H PO SCH (08:22)
[2019-07-25] MEDS: Cholecalciferol (D-3) 1,000 UNIT (25MCG) TABLET PO SCH (08:22)
[2019-07-25] MEDS: Nystatin POWDER 30 GM BOTTLE TP SCH ×2 (08:23→21:00)
[2019-07-25] MEDS: Insulin LISPRO 300 UNITS/3 ML VIAL SQ SCH ×3 (08:23→16:55)
--- NOTE | 2019-07-25 09:15 | Internal Med Progress Note ---
Hospitalist Progress Note - Encounter Date of Encounter: 07/25/19 Time of Encounter: 10:00 - Subjective Interval History: No acute events overnight - Exam Vitals: Temp Pulse Resp BP Pulse Ox 97.9 F 72 20 96/75 100 07/25/19 08:55 07/25/19 07:09 07/25/19 08:55 07/25/19 08:55 07/25/19 07:39 Exam: GENERAL: Not in distress. Alert and Oriented HEENT: EOMI, PERRLA MOUTH: Moist oral mucosa NECK:No JVD, No lymph nodes. CHEST AND LUNGS: Transmitted sounds, no wheezes or crackles HEART: S1 and S2 normal, no murmurs ABDOMEN: Soft, nontender, no organomegaly SKIN: Normal color, no rahses, no lesions EXTREMITIES: +3 bipedal edema, bilateral venous stasis dermatitis. Erythema and tenderness in the lower extremities is improving. NEUROLOGICAL: Normal cognition, normal motor and sensory exam. - Assessment and Plan (1) Acute kidney injury superimposed on CKD Current Visit: Yes Status: Acute Assessment and Plan: [place] on CKD stage 5 Nephrology on board board and following. s/p tunneled catheter placement on 07/25. Awaiting dialysis chair outpatient for discharge planning. (2) Diabetes Current Visit: Yes Status: Chronic Assessment and Plan: Accu-Cheks Insulin sliding scale. (3) Pulmonary hypertension Current Visit: Yes Status: Chronic Assessment and Plan: Her echo showed moderate to severe pulmonary hypertension and severe TR Patient has been counseled on the prognosis of his diagnosis. Palliative care following. (4) CHF (congestive heart failure) Current Visit: Yes Status: Acute Assessment and Plan: Patient is still on oxygen via nasal cannula Few bibasilar crackles on exam +2 bipedal pitting edema Scheduled for tunneled catheter placement by IR so she can continue dialysis as oupatient. (5) Left leg cellulitis Current Visit: Yes Status: Acute Assessment and Plan: Patient has bilateral stasis dermatitis. Erythema and tenderness in the lower extremities continues to improve Continue IV antibiotics Currently on IV ceftriaxone. - Time Spent with Patient Total time spent is greater than 50% in coordination of care (as documented) at patient's floor/unit and/or counseling patient: Internal Medicine: Result - Labs CBC & Chem 7: 07/25/19 05:30 07/25/19 05:30 Labs: Short CBC 07/25/19 Range/Units 05:30 WBC 9.5 (4.3-11.1) K/mcL Hgb 9.4 L (11.5-15.4) g/dL Hct 30.6 L (35.3-44.9) % Plt Count 181 (140-400) K/mcL BMP 07/25/19 05:30 Sodium 138 Potassium 4.3 Chloride 98 Carbon Dioxide 31 H BUN 44 H Creatinine 3.15 H Glucose 111 H Calcium 8.5 L - ABG Interpretation ABG results: PT/INR, D-dimer PT 17.5 Seconds (9.4-12.1) H 07/25/19 05:30 - Impressions Impressions Guidance Ultrasound 07/24/19 00:00 IMPRESSION: Successful ultrasound and fluoroscopy guided tunneled catheter placement . D/ / Devin Perkins MD / Devin Perkins MD Interpreting Provider: Devin Perkins MD Insertion Tunneled Catheter 07/24/19 00:00 IMPRESSION: Successful ultrasound and fluoroscopy guided tunneled catheter placement . D/ / Devin Perkins MD / Devin Perkins MD Interpreting Provider: Devin Perkins MD - VTE Reasons for not Prescribing Prophylaxis: Medical contraindication Consult Discharge Plan - Plan Referrals: NONE,PCP [Primary Care Provider] - ([facility]) (2) Diabetes Qualifiers: Diabetes mellitus type: type 2 Diabetes mellitus intermission coordinator insulin use: with longterm use Diabetes mellitus complication status: with kidney complications Diabetes mellitus complication detail: with chronic kidney disease Chronic k idney disease stage: stage 4 (severe) Qualified Code(s): E11.22 - Type 2 diabetes mellitus with diabetic chronic kidney disease; N18.4 - Chronic kidney disease, stage 4 (severe); Z79.4 - intermediate project manager (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
[2019-07-25 10:11] LABS: IFE Reflexed IFE Done; Immunoglobulin A 162 mg/dL (68-408); Immunoglobulin G 1380 mg/dL (768-1632); Immunoglobulin M 44 mg/dL (35-263)
[2019-07-25] MEDS: *HR* HYDROcodone/Acet 10/325 mg TABLET PO PRN (11:04)
--- NOTE | 2019-07-25 11:41 | Nephrology Progress Note ---
Date of Encounter: 07/25/19 Time of Encounter: 06:45 (Time estimated) - Assessment and Plan (1) Acute kidney injury superimposed on CKD Current Visit: Yes Status: Acute (2) CKD (chronic kidney disease) stage 3, GFR 30-59 ml/min Current Visit: No Status: Chronic (3) Hyponatremia Current Visit: Yes Status: Acute (4) Hyperkalemia Current Visit: Yes Status: Acute (5) Metabolic acidosis Current Visit: Yes Status: Acute Subjective Principal diagnosis: [place] on CKD Interval history: Subjective Patient feels her breathing is about the same as yesterday and worse than when she arrived. Complains of cough and sore throat "from surgery ". She did have tunneled catheter placed yesterday. Objective Physical exam Gen.: Elderly female. No acute distress Skin: Poor turgor. Dry appearance Eyes: Moist. Anicteric Cardiac: At least 3/6 systolic murmur best heard over aortic post. S1, S2 Respiratory: Posterior basilar and middle auscultation field crackles bilaterally Extremities: Capillary refill less than 2 seconds bilateral upper extremities. Pitting edema to at least the proximal tibia somewhat improved. Tender to palpation of the lower extremities especially above the knee. Venous stasis changes bilaterally lower extremities A/P #[place] on CKD IIIB with oliguria Suspect most likely secondary to ATN. Do not suspect postrenal. Has not responded to fluids making prerenal less likely. Retroperitoneal ultrasound 07/19 significant only for increased echogenicity of the renal parenchyma bilaterally. C3 decreased at 81 C4 WNL EMILY negative, ANCA (myeloperoxidase antibodies, serine protease 3 ab) negative FE urea using urea levels from 07/19 and creatinine levels from 07/20 is 2.9%, suggesting component of prerenal disease. SPEP interpretation: "Decreased albumin region. Increased alpha-1 region. Slight restriction of protein migration in the gamma region. CAROLANN shows a slight restriction at the application point in IgG kappa which could be artifact, a specific immune response, or early monoclonal protein. Suggest close clinical follow-up and repeat CAROLANN in 1-2 months." -Continue Renal replacement therapy with hemodialysis. -Permacath placed 07/24 #CKD Stage IIIB GFR baseline recently in about the 30s -Avoid nephrotoxins -renal replacement therapy -Social work consulted for dialysis chair time in the setting of dialysis dependent [place]. #Diarrhea patient self-reported -per primary #Hyponatremia Consider mixed picture Initially 131 Likely hypervolemic -Calculated serum osmolality initially slightly elevated favors skewed lab results from other serum solute causing transcellular shift into vasculature. Would expect low serum osmolality with congestive heart failure etiology. Actual Serum osmolality 07/20 slightly elevated at 305. -Urine osmolality greater than 285 favors some component of ADH involvement -Currently 135 -Resolved #Hyperkalemia Consider secondary to transcellular shifts in the setting of acidosis Initially 5.2 -Resolved #NAGMA Diarrhea documented on progress note. C. difficile negative -Serum bicarbonate low at 19 on 07/20 -Resolved Objective - Vital Signs Vital signs: Vital Signs Temp Pulse Resp BP Pulse Ox 07/25/19 11:10 106/66 07/25/19 10:55 101/67 07/25/19 10:40 99/54 07/25/19 10:25 112/65 07/25/19 10:10 123/65 07/25/19 09:55 125/65 07/25/19 09:40 115/66 07/25/19 09:25 117/65 07/25/19 09:10 113/69 07/25/19 08:55 97.9 F 20 96/75 07/25/19 07:39 18 100 07/25/19 07:09 98.6 F 72 20 147/87 100 07/25/19 03:33 97.9 F 75 19 96/54 100 07/25/19 02:24 18 99 07/24/19 23:13 97.9 F 60 18 104/56 100 07/24/19 20:15 18 97 07/24/19 19:01 98 F 69 18 102/60 100 07/24/19 16:01 98.1 F 65 19 98/53 96 07/24/19 15:12 108 18 138/67 96 07/24/19 11:40 98.4 F 63 20 108/52 99 Intake and Output 07/24/19 07/25/19 07/25/19 23:59 07:59 15:59 Intake Total 30 / 50 0 / 600 600 / 600 Output Total 200 / 200 Balance -170 / -150 0 / 600 600 / 600 Intake: Oral 30 / 40 0 / 0 0 / 0 Intake, Rinseback and Flushes 600 / 600 Output: Catheter 200 / 200 Other: Meal Breakfast Percent of Meal Consumed 0% Weight 112 kg Blood Glucose* 140 113 Hemodialysis Net Fluid Removed 9179 (mL) - Lab 07/25/19 05:30 07/25/19 05:30 Most recent lab results 07/25/19 05:30 Calcium 8.5 L Consult Discharge Plan - Plan Referrals: NONE,PCP [Primary Care Provider] - ([facility])
[2019-07-25] MEDS: Vitamin B Complex/Vit C/Vit E 1 EACH TABLET PO SCH (16:55)
[2019-07-25] MEDS: Ondansetron ODT 4 MG TAB.RAPDIS SL PRN (17:19)
[2019-07-25] MEDS: Baclofen 10 MG TABLET PO SCH (20:48)
[2019-07-25] MEDS: ALPRAZolam 0.25 MG TABLET PO PRN (20:48)
[2019-07-26] MEDS: traMADol 50 MG TABLET PO PRN (05:18)
[2019-07-26] MEDS: *HR* Heparin 5,000 UNIT/ML VIAL SQ SCH ×3 (05:18→23:02)
[2019-07-26] MEDS: Ondansetron ODT 4 MG TAB.RAPDIS SL PRN (05:18)
[2019-07-26] MEDS: Ascorbic Acid 500 MG TABLET PO SCH (05:18)
[2019-07-26 05:37] LABS: Hematocrit 29.9 % (35.3-44.9); Hemoglobin 9.3 g/dL (11.5-15.4); Mean Corpuscular HGB Conc 31.1 g/dL (31.6-35.5); Mean Corpuscular Hemoglobin 35.4 pg (28.0-33.3); Mean Corpuscular Volume 113.7 fL (83.0-100.0); Mean Platelet Volume 12.3 fL (9.4-12.4); Platelet Count 165 K/mcL (140-400); Red Blood Count 2.63 M/mcL (3.82-4.97); Red Cell Distribution Width 19.7 % (11.5-14.5); White Blood Count 8.6 K/mcL (4.3-11.1)
[2019-07-26 05:55] LABS: Calcium 8.2 mg/dL (8.6-10.3); Potassium 3.9 mEq/L (3.5-5.1)
[2019-07-26] MEDS: Budesonide/Formoterol 80/4.5 1 PUFF INH IH SCH ×2 (07:36→21:55)
[2019-07-26] MEDS: Tiotropium 18 MCG inhalation IH SCH (07:37)
--- NOTE | 2019-07-26 07:39 | Internal Med Progress Note ---
Hospitalist Progress Note - Encounter Date of Encounter: 07/26/19 Time of Encounter: 09:00 - Subjective Interval History: s/p tunneled catheter placement - Exam Vitals: Temp Pulse Resp BP Pulse Ox 98.2 F 62 17 114/65 95 07/26/19 03:24 07/26/19 03:24 07/26/19 03:24 07/26/19 03:24 07/26/19 03:24 Exam: GENERAL: Not in distress. Alert and Oriented HEENT: EOMI, PERRLA MOUTH: Moist oral mucosa NECK:No JVD, No lymph nodes. CHEST AND LUNGS: Transmitted sounds, no wheezes or crackles HEART: S1 and S2 normal, no murmurs ABDOMEN: Soft, nontender, no organomegaly SKIN: Normal color, no rahses, no lesions EXTREMITIES: +3 bipedal edema, bilateral venous stasis dermatitis. Erythema and tenderness in the lower extremities is improving. NEUROLOGICAL: Normal cognition, normal motor and sensory exam. - Assessment and Plan (1) Acute kidney injury superimposed on CKD Current Visit: Yes Status: Acute Assessment and Plan: LONDON on CKD stage 5 Nephrology on board board and following. s/p tunneled catheter placement on 07/25. Awaiting dialysis chair outpatient for discharge planning. (2) Diabetes Current Visit: Yes Status: Chronic Assessment and Plan: Accu-Cheks Insulin sliding scale. (3) Pulmonary hypertension Current Visit: Yes Status: Chronic Assessment and Plan: Her echo showed moderate to severe pulmonary hypertension and severe TR Patient has been counseled on the prognosis of his diagnosis. Palliative care following. (4) CHF (congestive heart failure) Current Visit: Yes Status: Acute Assessment and Plan: Patient is still on oxygen via nasal cannula Few bibasilar crackles on exam +2 bipedal pitting edema s/p tunneled catheter placement for outpatient dialysis (5) Left leg cellulitis Current Visit: Yes Status: Acute Assessment and Plan: Patient has bilateral stasis dermatitis. Erythema and tenderness in the lower extremities continues to improve Continue IV antibiotics Currently on IV ceftriaxone. DVT Prophylaxis: SQ Heparin - Time Spent with Patient Total time spent is greater than 50% in coordination of care (as documented) at patient's floor/unit and/or counseling patient: Internal Medicine: Result - Labs CBC & Chem 7: 07/26/19 05:20 07/26/19 05:20 Labs: Short CBC 07/26/19 Range/Units 05:20 WBC 8.6 (4.3-11.1) K/mcL Hgb 9.3 L (11.5-15.4) g/dL Hct 29.9 L (35.3-44.9) % Plt Count 165 (140-400) K/mcL BMP 07/26/19 05:20 Sodium 137 Potassium 3.9 Chloride 101 Carbon Dioxide 29 BUN 24 H Creatinine 2.13 H Glucose 114 H Calcium 8.2 L - ABG Interpretation ABG results: PT/INR, D-dimer PT 17.5 Seconds (9.4-12.1) H 07/25/19 05:30 - VTE Reasons for not Prescribing Prophylaxis: Medical contraindication Consult Discharge Plan - Plan Referrals: NONE,PCP [Primary Care Provider] - (ECF) (2) Diabetes Qualifiers: Diabetes mellitus type: type 2 Diabetes mellitus penitentiary insulin use: with penitentiary use Diabetes mellitus complication status: with kidney complications Diabetes mellitus complication detail: with chronic kidney disease Chronic kidney disease stage: stage 4 (severe) Qualified Code(s): E11.22 - Type 2 diabetes mellitus with diabetic chronic kidney disease; N18.4 - Chronic kidney disease, stage 4 (severe); 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
[2019-07-26] MEDS: cephALEXin 250 MG CAPSULE PO SCH ×2 (08:11→20:11)
[2019-07-26] MEDS: FLUoxetine 20 MG CAPSULE PO SCH (08:11)
[2019-07-26] MEDS: Insulin LISPRO 300 UNITS/3 ML VIAL SQ SCH ×3 (08:11→17:30)
[2019-07-26] MEDS: Bumetanide 1 MG TABLET PO SCH ×2 (08:11→17:30)
[2019-07-26] MEDS: Calcium Acetate 667 MG CAPSULE PO SCH ×3 (08:12→17:30)
[2019-07-26] MEDS: Cholecalciferol (D-3) 1,000 UNIT (25MCG) TABLET PO SCH (08:12)
[2019-07-26] MEDS: Isosorbide MONOnitrate (24 HR) 60 MG TAB.ER.24H PO SCH (08:12)
[2019-07-26] MEDS: Carbidopa/Levodopa 25/100 TABLET PO SCH ×2 (08:12→20:13)
[2019-07-26] MEDS: Nystatin POWDER 30 GM BOTTLE TP SCH ×2 (08:12→20:13)
[2019-07-26] MEDS: *HR* Amiodarone 200 MG TABLET PO SCH ×2 (08:12→20:11)
--- NOTE | 2019-07-26 11:49 | Nephrology Progress Note ---
Date of Encounter: 07/26/19 Time of Encounter: 11:47 - Assessment and Plan (1) Acute kidney injury superimposed on CKD Current Visit: Yes Status: Acute Patient on a MWF HD schedule Has a chair time at [facility] for her outpatient HD treatments (2) CKD (chronic kidney disease) stage 4, GFR 15-29 ml/min Current Visit: Yes Status: Acute Renal diet Fluid restrictions Avoid nephrotoxins if possible (3) CHF (congestive heart failure) Current Visit: Yes Status: Acute As per primary Agree with diuretics plus HD for fluid removal. Qualifiers: Heart failure type: diastolic Heart failure chronicity: acute on chronic Qualified Code(s): I50.33 - Acute on chronic diastolic (congestive) heart failure (4) Peripheral edema Current Visit: Yes Status: Acute Will continue with HD Subjective Principal diagnosis: LONDON on CKD Interval history: Patient seen and examined. No complaints other than a cough, non-productive Objective - Vital Signs Vital signs: Vital Signs Temp Pulse Resp BP Pulse Ox 07/26/19 07:56 97.8 F 61 18 103/65 98 07/26/19 07:43 17 95 07/26/19 03:24 98.2 F 62 17 114/65 95 07/25/19 23:52 98.4 F 60 16 100/61 98 07/25/19 21:18 14 97 07/25/19 19:07 98.2 F 69 17 125/77 99 07/25/19 16:14 98.4 F 66 18 96/57 100 07/25/19 12:58 98.1 F 20 103/69 07/25/19 12:25 96/62 07/25/19 12:10 99/56 07/25/19 11:55 95/59 Intake and Output 07/25/19 07/26/19 07/26/19 23:59 07:59 15:59 Intake Total 30 / 750 0 / 0 Balance 30 / -1850 0 / 0 Intake: Oral 30 / 150 0 / 0 Other: Meal Dinner Percent of Meal Consumed 5% Weight 110.2 kg Blood Glucose* 128 132 Patient Weight 07/26/19 23:59 Weight 110.2 kg - General Appearance General appearance: Present: obese EENT: Present: ATNC, mucous membranes moist, hearing intact, vision intact Neck: Present: supple Respiratory: Present: clear Cardiology: Present: edema, normal S1, normal S2 Dialysis Vascular Access: Venous Catheter Gastrointestinal: Present: no tenderness, no guarding, obese Integumentary: Present: warm and dry Neurologic: Present: alert and oriented x3 Psychiatric: Present: mood/affect appropriate, cooperative - Lab 07/26/19 05:20 07/26/19 05:20 Most recent lab results 07/26/19 05:20 Calcium 8.2 L - VTE Reasons for not Prescribing Prophylaxis: Medical contraindication Consult Discharge Plan - Plan Referrals: NONE,PCP [Primary Care Provider] - (ECF)
[2019-07-26] MEDS: *HR* HYDROcodone/Acet 10/325 mg TABLET PO PRN ×2 (12:53→20:18)
[2019-07-26] MEDS: ALPRAZolam 0.25 MG TABLET PO PRN ×2 (12:54→20:11)
--- NOTE | 2019-07-26 15:01 | Discharge Summary ---
Orders not resulted at time of discharge: Pending orders 07/19/19 03:25 Culture,Sputum with Gram Stain [RM] Routine Date of Encounter: 07/26/19 Time of Encounter: 10:00 - Discharge Diagnosis (1) Acute kidney injury superimposed on CKD Priority: Primary Status: Acute Assessment and Plan: 79 year old female presented as a transfer from [place]. Patient urgently admitted to the emergency department from [facility] for shortness of breath that has worsening. Patient was noted to be acute on chronic renal failure with chest x-ray showing cranial by Devin mild pulmonary edema patient was admitted to [facility]. While patient was a [facility] patient has been getting IV fluids and IV diuresis with renal function declining and creatinine rising to 4.23. Patient empirically was started on Zosyn and doxycycline. Urine culture showed yeast. Leukocytosis continues to increase to 16.6 with left shift She was asssessed with volume overload with LONDON on CKD stage 5 Nephrology on board and following. She waa seen by nephrology and a decision was made to start dialyiss She had a tunneled catheter placement on 07/25 wt no acute complications. Awaiting dialysis chair outpatient for discharge planning. 35 minutes was spent discharging this patient (2) Diabetes Priority: Primary Status: Chronic Qualifiers: Diabetes mellitus type: type 2 Diabetes mellitus long term acute care registered nurse insulin use: with usp use Diabetes mellitus complication status: with kidney complications Diabetes mellitus complication detail: with chronic kidney disease Chronic kidney disease stage: stage 4 (severe) Qualified Code(s): E11.22 - Type 2 diabetes mellitus with diabetic chronic kidney disease; N18.4 - Chronic kidney disease, stage 4 (severe); Z79.4 - group home (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 (3) Pulmonary hypertension Priority: Primary Status: Chronic (4) CHF (congestive heart failure) Priority: Primary Status: Acute Qualifiers: Heart failure type: diastolic Heart failure chronicity: acute on chronic Qualified Code(s): I50.33 - Acute on chronic diastolic (congestive) heart failure (5) Left leg cellulitis Priority: Primary Status: Acute Hospital course: Ms. Magallanes is a 79 year old female - Time Spent with Patient Total time spent providing and/or coordinating discharge services: - Discharge Medications Prescriptions: No Action Ustekinumab [Stelara (For Outpatient Infusion)] 90 mg SQ [id number] Vitamin B Complex [B Complex] 1 tab PO QPM Fluticasone Propionate Nasal [Flonase] 2 spray NS BID PRN PRN Reason: Allergy Symptoms Carbidopa/Levodopa 25/100 [Sinemet 25/100] 1 tab PO BID Atorvastatin [Lipitor] 40 mg PO HS Umeclidinium [place] [Incruse Ellipta] 1 puff IH DAILY Loperamide [Imodium] 2 mg PO QID PRN PRN Reason: Diarrhea Acetaminophen [Tylenol] 325 mg PO Q6HR PRN PRN Reason: Mild To Moderate Pain Allopurinol [Zyloprim 100 MG] 200 mg PO DAILY Digoxin [Lanoxin] 0.125 mg PO MOTH Albuterol Sulfate [Proair Hfa] 2 puff IH Q4H PRN PRN Reason: Shortness Of Breath Cholecalciferol (D-3) [Vitamin D] 1,000 unit PO DAILY tablet Budesonide/Formoterol 80/4.5 [Symbicort 80/4.5] 2 puff IH BIDRESP #1 inhaler Isosorbide MONOnitrate (24 HR) [Imdur] 120 mg PO DAILY #60 tab.er.24h FLUoxetine HCl [Fluoxetine HCl] 40 mg PO DAILY Calcitriol [Rocaltrol] 0.25 mcg PO QMWF Amiodarone [Cordarone] 200 mg PO BID Ascorbic Acid [Vitamin C] 500 mg PO 0630 tablet Docusate [Colace] 100 mg PO BID capsule Ondansetron ODT [Zofran ODT] 4 mg SL Q4HR PRN tab.rapdis PRN Reason: Nausea And Vomiting Magnesium Oxide [Mag-Ox] 400 mg PO DAILY #7 tablet HYDROcodone/Acet 5/325 mg [[place] 5-325 mg] 1 tab PO QAM AND QHS 60 Days #120 tablet Metoprolol [Lopressor] 25 mg PO BID tablet Bumetanide [Bumex] 1.5 mg PO BID ALPRAZolam [Xanax 0.25 MG Tablet] 0.25 mg PO Q6HR PRN PRN Reason: Anxiety Lisinopril [Zestril] 5 mg PO DAILY Baclofen 5 mg PO HS Nystatin POWDER [Nystop] 1 appl TP BID Levothyroxine [Synthroid] 125 mcg PO 0630 Home Medications: Carbidopa/Levodopa 25/100 [Sinemet 25/100] 1 tab PO BID 0424/16 [History] Fluticasone Propionate Nasal [Flonase] 2 spray NS BID PRN 03/07/16 [History] Ustekinumab [Stelara (For Outpatient Infusion)] 90 mg SQ [id number] 03/07/16 [History] Vitamin B Complex [B Complex] 1 tab PO QPM 03/07/16 [History] Atorvastatin [Lipitor] 40 mg PO HS 05/18/17 [History] Albuterol Sulfate [Proair Hfa] 2 puff IH Q4H PRN 03/02/18 [History] Cholecalciferol (D-3) [Vitamin D] 1,000 unit PO DAILY tablet 11/18/18 [Rx] Loperamide [Imodium] 2 mg PO QID PRN 01/10/19 [History] Umeclidinium [place] [Incruse Ellipta] 1 puff IH DAILY 01/10/19 [History] Budesonide/Formoterol 80/4.5 [Symbicort 80/4.5] 2 puff IH BIDRESP #1 inhaler 02/21/19 [Rx] Isosorbide MONOnitrate (24 HR) [Imdur] 120 mg PO DAILY #60 tab.er.24h 02/21/19 [Rx] Amiodarone [Cordarone] 200 mg PO BID 05/26/19 [History] Calcitriol [Rocaltrol] 0.25 mcg PO QMWF 05/26/19 [History] FLUoxetine HCl [Fluoxetine HCl] 40 mg PO DAILY 05/26/19 [History] Ascorbic Acid [Vitamin C] 500 mg PO 0630 tablet 05/30/19 [Rx] Docusate [Colace] 100 mg PO BID capsule 05/30/19 [Rx] Ondansetron ODT [Zofran ODT] 4 mg SL Q4HR PRN tab.rapdis 05/30/19 [Rx] Magnesium Oxide [Mag-Ox] 400 mg PO DAILY #7 tablet 06/06/19 [Rx] HYDROcodone/Acet 5/325 mg [[place] 5-325 mg] 1 tab PO QAM AND QHS 60 Days #120 tablet 06/29/19 [Rx] Metoprolol [Lopressor] 25 mg PO BID tablet 06/29/19 [Rx] ALPRAZolam [Xanax 0.25 MG Tablet] 0.25 mg PO Q6HR PRN 07/11/19 [History] Baclofen 5 mg PO HS 07/11/19 [History] Bumetanide [Bumex] 1.5 mg PO BID 07/11/19 [History] Lisinopril [Zestril] 5 mg PO DAILY 07/11/19 [History] Nystatin POWDER [Nystop] 1 appl TP BID 07/11/19 [History] Levothyroxine [Synthroid] 125 mcg PO 0630 07/16/19 [History] Acetaminophen [Tylenol] 325 mg PO Q6HR PRN 07/19/19 [History] Allopurinol [Zyloprim 100 MG] 200 mg PO DAILY 07/19/19 [History] Digoxin [Lanoxin] 0.125 mg PO MOTH 07/19/19 [History] Allergies/Adverse Reactions: Allergy/AdvReac Type Severity Reaction Status Date / Time amlodipine [From Norvasc] Allergy Severe Swelling Verified 07/16/19 21:05 of Lip/Tongue/Throat carbamazepine [From Tegretol] Allergy Mild rash/bliste Verified 07/16/19 21:05 rs ciprofloxacin [From Cipro] Allergy Mild Rash Verified 07/16/19 21:05 nitrofurantoin Allergy Mild Rash Verified 07/16/19 21:05 [From Macrobid] Sulfa (Sulfonamide Allergy Mild Rash Verified 07/16/19 21:05 Antibiotics) sulfamethoxazole Allergy Mild Rash Verified 07/16/19 21:05 [From Bactrim] trimethoprim [From Bactrim] Allergy Mild Rash Verified 07/16/19 21:05 Iodinated Contrast Media Allergy See Verified 07/16/19 21:05 [Iodinated Contrast- Oral Comments and IV Dye] acetaminophen [From Percocet] AdvReac Mild Confusion Verified 07/16/19 21:05 meperidine [From Demerol] AdvReac Mild Vomiting Verified 07/16/19 21:05 oxycodone [From Percocet] AdvReac Mild Confusion Verified 07/16/19 21:05 promethazine [From Phenergan] AdvReac Mild Vomiting Verified 07/16/19 21:05 NSAIDS (Non-Steroidal AdvReac Unknown D/T KIDNEY Verified 07/16/19 21:05 Anti-Inflamma DYSFUNCTION Date of admission: 07/18/19 23:45 Primary care physician: PCP NONE Consults: 07/19/19 06:00 Consult to Nephrology [CONS] Routine Consulting Provider: Kidney Marcia/MORGAN/EDDIE/MEKA Reason for Consult: Acute on chronic CKD stage 3. Call Completed: No 07/19/19 08:27 Consult to Invasive Line Access Team [CONS] Routine Reason for Consult: poor access Line Type: EPIV 07/20/19 06:00 Consult to Cardiology [CONS] Routine Comment: Consulting Provider: Cardiology Marcia Reason for Consult: elevated troponin. Not on eliquis due to Gi bleed. not on any anticoagulation at home. hx of A.fib. Call Completed: No 07/20/19 08:43 Consult to Palliative Care [CONS] Routine Comment: Consulting Provider: Palliative Care Marcia Reason for Consult: goals of care counseling Call Completed: No 07/20/19 09:55 Consult to Interventional Radiology [CONS] Routine Consulting Provider: Radiology Interventional Cols Reason for Consult: Please evaluate for placement of a temporary HD catheter Call Completed: Yes 07/20/19 10:00 Consult to Dialysis [CONS] ONCE 07/21/19 07:45 Consult to Dialysis [CONS] ONCE 07/21/19 17:15 Consult to Lye Machine Operator [CONS] Routine Reason for SW Consult: Patient is living alone and is not ambulatory with other life style issues. 07/23/19 06:59 Consult to Interventional Radiology [CONS] Routine Consulting Provider: Radiology Interventional Cols Reason for Consult: Please eval for placement of a Tunneled HD catheter for Tuesday (07/24/19) Call Completed: No 07/23/19 07:00 Consult to Dialysis [CONS] ONCE 07/23/19 07:15 Consult to Occupational Therapy [CONS] Routine Comment: Evaluate, develop and implement POC Reason for Consult: Deconditioned Does patient have active BEDREST order?: No Is patient medically & hemodynamically stable?: Yes Consult to Physical Therapy [CONS] Routine Comment: Evaluate, develop and implement POC Reason for Consult: Deconditioned pt Does patient have active BEDREST order?: No Is patient medically & hemodynamically stable?: Yes 07/23/19 10:21 Consult to Lye Machine Operator [CONS] Routine Reason for SW Consult: please evaluate for dialysis chair time. 07/24/19 09:13 Consult to Nurse Navigator [CONS] Routine Comment: chf 07/25/19 07:30 Consult to Dialysis [CONS] ONCE 07/25/19 12:39 Consult to Interventional Radiology [CONS] Routine Consulting Provider: Radiology Interventional Cols Reason for Consult: Please place tunneled Line for outpatient HD. Time Notified: 12:39 Call Completed: Yes - Constitutional Vitals: Temp Pulse Resp BP Pulse Ox 98.6 F 69 17 135/68 100 07/26/19 12:31 07/26/19 12:31 07/26/19 12:31 07/26/19 12:31 07/26/19 12:31 Exam: GENERAL: Not in distress. Alert and Oriented HEENT: EOMI, PERRLA MOUTH: Moist oral mucosa NECK:No JVD, No lymph nodes. CHEST AND LUNGS: Transmitted sounds, no wheezes or crackles HEART: S1 and S2 normal, no murmurs ABDOMEN: Soft, nontender, no organomegaly SKIN: Normal color, no rahses, no lesions EXTREMITIES: +3 bipedal edema, bilateral venous stasis dermatitis. Erythema and tenderness in the lower extremities is improving. NEUROLOGICAL: Normal cognition, normal motor and sensory exam. - Respiratory Respiratory exam: Present: CTAB. Absent: accessory muscle use, rales, rhonchi, wheezes - Patient Status Disposition: Home, Self-Care Condition: Good - Discharge Instructions Follow Up With: NONE,PCP [Primary Care Provider] - (ECF) - VTE Reasons for not Prescribing Prophylaxis: Medical contraindication
--- NOTE | 2019-07-26 15:02 | Physician Discharge Referral ---
ExtendedCare Referral Info Provider in Charge after Transfer: PCP Institutional Level of Care: Skilled - Diagnosis (1) Acute kidney injury superimposed on CKD Priority: Primary Status: Acute (2) Diabetes Priority: Primary Status: Chronic (3) Pulmonary hypertension Priority: Primary Status: Chronic (4) CHF (congestive heart failure) Priority: Primary Status: Acute (5) Left leg cellulitis Priority: Primary Status: Acute - Transfer Medications Home Medications: Carbidopa/Levodopa 25/100 [Sinemet 25/100] 1 tab PO BID 03/07/16 [History] Fluticasone Propionate Nasal [Flonase] 2 spray NS BID PRN 03/07/16 [History] Ustekinumab [Stelara (For Outpatient Infusion)] 90 mg SQ [id number] 03/07/16 [History] Vitamin B Complex [B Complex] 1 tab PO QPM 03/07/16 [History] Atorvastatin [Lipitor] 40 mg PO HS 05/18/17 [History] Albuterol Sulfate [Proair Hfa] 2 puff IH Q4H PRN 03/02/18 [History] Cholecalciferol (D-3) [Vitamin D] 1,000 unit PO DAILY tablet 11/18/18 [Rx] Loperamide [Imodium] 2 mg PO QID PRN 01/10/19 [History] Umeclidinium [place] [Incruse Ellipta] 1 puff IH DAILY 01/10/19 [History] Budesonide/Formoterol 80/4.5 [Symbicort 80/4.5] 2 puff IH BIDRESP #1 inhaler 02/21/19 [Rx] Isosorbide MONOnitrate (24 HR) [Imdur] 120 mg PO DAILY #60 tab.er.24h 02/21/19 [Rx] Amiodarone [Cordarone] 200 mg PO BID 05/26/19 [History] Calcitriol [Rocaltrol] 0.25 mcg PO QMWF 05/26/19 [History] FLUoxetine HCl [Fluoxetine HCl] 40 mg PO DAILY 05/26/19 [History] Ascorbic Acid [Vitamin C] 500 mg PO 0630 tablet 05/30/19 [Rx] Docusate [Colace] 100 mg PO BID capsule 05/30/19 [Rx] Ondansetron ODT [Zofran ODT] 4 mg SL Q4HR PRN tab.rapdis 05/30/19 [Rx] Magnesium Oxide [Mag-Ox] 400 mg PO DAILY #7 tablet 06/06/19 [Rx] HYDROcodone/Acet 5/325 mg [[place] 5-325 mg] 1 tab PO QAM AND QHS 60 Days #120 tablet 06/29/19 [Rx] Metoprolol [Lopressor] 25 mg PO BID tablet 06/29/19 [Rx] ALPRAZolam [Xanax 0.25 MG Tablet] 0.25 mg PO Q6HR PRN 07/11/19 [History] Baclofen 5 mg PO HS 07/11/19 [History] Bumetanide [Bumex] 1.5 mg PO BID 07/11/19 [History] Lisinopril [Zestril] 5 mg PO DAILY 07/11/19 [History] Nystatin POWDER [Nystop] 1 appl TP BID 07/11/19 [History] Levothyroxine [Synthroid] 125 mcg PO 0630 07/16/19 [History] Acetaminophen [Tylenol] 325 mg PO Q6HR PRN 07/19/19 [History] Allopurinol [Zyloprim 100 MG] 200 mg PO DAILY 07/19/19 [History] Digoxin [Lanoxin] 0.125 mg PO MOTH 07/19/19 [History] Allergies/Adverse Reactions: Allergy/AdvReac Type Severity Reaction Status Date / Time amlodipine [From Norvasc] Allergy Severe Swelling Verified 07/16/19 21:05 of Lip/Tongue/Throat carbamazepine [From Tegretol] Allergy Mild rash/bliste Verified 07/16/19 21:05 rs ciprofloxacin [From Cipro] Allergy Mild Rash Verified 07/16/19 21:05 nitrofurantoin Allergy Mild Rash Verified 07/16/19 21:05 [From Macrobid] Sulfa (Sulfonamide Allergy Mild Rash Verified 07/16/19 21:05 Antibiotics) sulfamethoxazole Allergy Mild Rash Verified 07/16/19 21:05 [From Bactrim] trimethoprim [From Bactrim] Allergy Mild Rash Verified 07/16/19 21:05 Iodinated Contrast Media Allergy See Verified 07/16/19 21:05 [Iodinated Contrast- Oral Comments and IV Dye] acetaminophen [From Percocet] AdvReac Mild Confusion Verified 07/16/19 21:05 meperidine [From Demerol] AdvReac Mild Vomiting Verified 07/16/19 21:05 oxycodone [From Percocet] AdvReac Mild Confusion Verified 07/16/19 21:05 promethazine [From Phenergan] AdvReac Mild Vomiting Verified 07/16/19 21:05 NSAIDS (Non-Steroidal AdvReac Unknown D/T KIDNEY Verified 07/16/19 21:05 Anti-Inflamma DYSFUNCTION - Respiratory Orders Smoking Cessation: Smoking cessation has been advised. For more information, call the [place] Tobacco Quit Line at 6-503-VOSU-NOW. - Mobility Orders Chair, Ambulate - Rehabiliation Orders Rehab Potential: Good CERTIFICATION: I certify that the transfer of the above named patient to an Extended Care Facility is necessary for the continuing treatment of the diagnosis listed. The above information is true and accurate reflection of patient's current condition. Confidential - Redisclosure prohibited without a patient's written consent.
[2019-07-26] MEDS: Vitamin B Complex/Vit C/Vit E 1 EACH TABLET PO SCH (17:31)
[2019-07-26] MEDS: *HR* Digoxin 0.125 MG TABLET PO SCH (17:33)
[2019-07-26 18:39] LABS: Alpha 2 Globulin (PEP) 0.67 g/dL (0.48-1.05); Beta Globulin (PEP) 0.62 g/dL (0.48-1.10)
[2019-07-26] MEDS: Baclofen 10 MG TABLET PO SCH (20:12)
[2019-07-27] MEDS: traMADol 50 MG TABLET PO PRN (01:23)
[2019-07-27] MEDS: *HR* Heparin 5,000 UNIT/ML VIAL SQ SCH ×2 (06:21→13:41)
[2019-07-27] MEDS: Ascorbic Acid 500 MG TABLET PO SCH (06:21)
[2019-07-27] MEDS: Budesonide/Formoterol 80/4.5 1 PUFF INH IH SCH (08:10)
[2019-07-27] MEDS: Tiotropium 18 MCG inhalation IH SCH (08:10)
[2019-07-27] MEDS: cephALEXin 250 MG CAPSULE PO SCH (08:19)
[2019-07-27] MEDS: Bumetanide 1 MG TABLET PO SCH (08:20)
[2019-07-27] MEDS: FLUoxetine 20 MG CAPSULE PO SCH (08:21)
[2019-07-27] MEDS: Cholecalciferol (D-3) 1,000 UNIT (25MCG) TABLET PO SCH (08:21)
[2019-07-27] MEDS: Isosorbide MONOnitrate (24 HR) 60 MG TAB.ER.24H PO SCH (08:21)
[2019-07-27] MEDS: Calcium Acetate 667 MG CAPSULE PO SCH ×2 (08:22→13:41)
[2019-07-27] MEDS: Carbidopa/Levodopa 25/100 TABLET PO SCH (08:22)
[2019-07-27] MEDS: *HR* Amiodarone 200 MG TABLET PO SCH (08:22)
[2019-07-27] MEDS: Insulin LISPRO 300 UNITS/3 ML VIAL SQ SCH ×2 (08:23→13:41)
[2019-07-27] MEDS: Nystatin POWDER 30 GM BOTTLE TP SCH (08:23)
--- NOTE | 2019-07-27 08:50 | Internal Med Progress Note ---
Hospitalist Progress Note - Encounter Date of Encounter: 07/27/19 Time of Encounter: 10:00 - Subjective Interval History: No acute events overnight. Awaiting discharge once dialysis chair is set up - Exam Vitals: Temp Pulse Resp BP Pulse Ox 97.7 F 80 16 125/75 100 07/27/19 07:01 07/27/19 07:01 07/27/19 07:01 07/27/19 07:01 07/27/19 07:01 Exam: GENERAL: Not in distress. Alert and Oriented HEENT: EOMI, PERRLA MOUTH: Moist oral mucosa NECK:No JVD, No lymph nodes. CHEST AND LUNGS: Transmitted sounds, no wheezes or crackles HEART: S1 and S2 normal, no murmurs ABDOMEN: Soft, nontender, no organomegaly SKIN: Normal color, no rahses, no lesions EXTREMITIES: +3 bipedal edema, bilateral venous stasis dermatitis. Erythema and tenderness in the lower extremities is improving. NEUROLOGICAL: Normal cognition, normal motor and sensory exam. - Assessment and Plan (1) Acute kidney injury superimposed on CKD Current Visit: Yes Status: Acute Assessment and Plan: 79 year old female presented as a transfer from [place]. Patient urgently admitted to the emergency department from local [facility] for shortness of breath that has worsening. Patient was noted to be acute on chronic renal failure with chest x-ray showing cranial by Devin mild pulmonary edema patient was admitted to [facility] [place]. While patient was a [facility] patient has been getting IV fluids and IV diuresis with renal function declining and creatinine rising to 4.23. Patient empirically was started on Zosyn and doxycycline. Urine culture showed yeast. Leukocytosis continues to increase to 16.6 with left shift She was asssessed with volume overload with LONDON on CKD stage 5 Nephrology on board and following. She waa seen by nephrology and a decision was made to start dialyiss She had a tunneled catheter placement on 07/25 wth no acute complications. Awaiting dialysis chair outpatient for discharge planning. She completed a course of antibiotics for cellulitis (2) Diabetes Current Visit: Yes Status: Chronic Assessment and Plan: Accu-Cheks Insulin sliding scale. (3) Pulmonary hypertension Current Visit: Yes Status: Chronic Assessment and Plan: Her echo showed moderate to severe pulmonary hypertension and severe TR Patient has been counseled on the prognosis of his diagnosis. Palliative care following. (4) CHF (congestive heart failure) Current Visit: Yes Status: Acute Assessment and Plan: Patient is still on oxygen via nasal cannula Few bibasilar crackles on exam +2 bipedal pitting edema s/p tunneled catheter placement for outpatient dialysis (5) Left leg cellulitis Current Visit: Yes Status: Acute Assessment and Plan: Patient has bilateral stasis dermatitis. Erythema and tenderness in the lower extremities continues to improve Continue IV antibiotics Currently on IV ceftriaxone. DVT Prophylaxis: SQ Heparin - Time Spent with Patient Total time spent is greater than 50% in coordination of care (as documented) at patient's floor/unit and/or counseling patient: Internal Medicine: Result - Labs CBC & Chem 7: 07/27/19 08:18 07/27/19 08:18 - ABG Interpretation ABG results: PT/INR, D-dimer PT 17.5 Seconds (9.4-12.1) H 07/25/19 05:30 - VTE Reasons for not Prescribing Prophylaxis: Medical contraindication Consult Discharge Plan - Plan Referrals: NONE,PCP [Primary Care Provider] - ([facility]) (2) Diabetes Qualifiers: Diabetes mellitus type: type 2 Diabetes mellitus care home insulin use: with intermediate teacher use Diabetes mellitus complication status: with kidney complications Diabetes mellitus complication detail: with chronic kidney disease Chronic kidney disease stage: stage 4 (severe) Qualified Code(s): E11.22 - Type 2 diabetes mellitus with diabetic chronic kidney disease; N18.4 - Chronic kidney disease, stage 4 (severe); Z79.4 - detention (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
[2019-07-27 08:51] LABS: Hemoglobin 9.9 g/dL (11.5-15.4); Mean Corpuscular HGB Conc 30.9 g/dL (31.6-35.5); Mean Corpuscular Hemoglobin 35.4 pg (28.0-33.3); Mean Corpuscular Volume 114.3 fL (83.0-100.0); Mean Platelet Volume 11.9 fL (9.4-12.4); Platelet Count 161 K/mcL (140-400); Red Cell Distribution Width 19.7 % (11.5-14.5); White Blood Count 9.9 K/mcL (4.3-11.1)
[2019-07-27 09:11] LABS: Calcium 8.2 mg/dL (8.6-10.3); Potassium 4.2 mEq/L (3.5-5.1)
[2019-07-27] MEDS ORDERED: 0.9 % Sodium Chloride 250 ML IVC PRN (09:27)
[2019-07-27] MEDS ORDERED: *HR* Heparin 10,000 UNIT/10 ML VIAL IV PRN (09:27)
[2019-07-27] MEDS: Ondansetron ODT 4 MG TAB.RAPDIS SL PRN (09:33)
[2019-07-27 09:41] LABS: Immunoglobulin A 144 mg/dL (68-408); Immunoglobulin G 1290 mg/dL (768-1632); Immunoglobulin M 41 mg/dL (35-263)
[2019-07-27 09:42] LABS: IFE Reflexed IFE Done
--- NOTE | 2019-07-27 09:49 | Nephrology Progress Note ---
Date of Encounter: 07/27/19 Time of Encounter: 09:49 - Assessment and Plan (1) Acute kidney injury superimposed on CKD Status: Acute Patient on a MWF HD schedule Has a chair time at [facility] for her outpatient HD treatments The patient was seen while on dialysis (2) CHF (congestive heart failure) Status: Acute Qualifiers: Heart failure type: diastolic Heart failure chronicity: acute on chronic Qualified Code(s): I50.33 - Acute on chronic diastolic (congestive) heart failure (3) Peripheral edema Status: Acute (4) CKD (chronic kidney disease) stage 4, GFR 15-29 ml/min Status: Acute Subjective Principal diagnosis: LONDON on CKD Interval history: The patient was seen. She has shortness of breath. Thinks it might be better. Objective - Vital Signs Vital signs: Vital Signs Temp Pulse Resp BP Pulse Ox 07/27/19 08:10 16 100 07/27/19 07:01 97.7 F 80 16 125/75 100 07/27/19 05:15 97.9 F 72 12 118/76 100 07/27/19 02:03 97.7 F 73 12 112/62 99 07/26/19 21:58 16 100 07/26/19 20:33 97.6 F 60 12 100 07/26/19 20:10 104/60 07/26/19 17:01 98.6 F 68 17 101/62 99 07/26/19 12:31 98.6 F 69 17 135/68 100 Intake and Output 07/26/19 07/27/19 07/27/19 23:59 07:59 15:59 Intake Total 120 / 120 Output Total 475 / 475 Balance -475 / -355 120 / 120 Intake: Oral 120 / 120 Output: Catheter 475 / 475 Other: Meal Breakfast Percent of Meal Consumed 40% Stool Size Moderate Smear Stool Consistency soft soft Stool Color Brown Brown # Bowel Movements 1 1 Weight 110.1 kg Blood Glucose* 151 115 Patient Weight 07/27/19 23:59 Weight 110.1 kg - General Appearance General appearance: Present: well-developed, well-nourished EENT: Present: ATNC Cardiology: Present: edema, regular rate Neurologic: Present: alert and oriented x3 Psychiatric: Present: mood/affect appropriate - Lab 07/27/19 08:18 07/27/19 08:18 Most recent lab results 07/27/19 08:18 Calcium 8.2 L - VTE Reasons for not Prescribing Prophylaxis: Medical contraindication Consult Discharge Plan - Plan Referrals: NONE,PCP [Primary Care Provider] - ([facility]F)
[2019-07-27 13:26] VITALS: BP 120/52
[2019-07-27] MEDS: *HR* HYDROcodone/Acet 10/325 mg TABLET PO PRN (13:54)
== END 2019-07-27 16:16 | disposition home or self-care (01) | DRG 673 ==
LOC: SUATTDRO 23:45 → ICNU 23:45 → 2NNU 07-20 14:36 → 2ANU 07-21 15:55
PROVIDERS: ADMIT Family Medicine; ATTEND Internal Medicine
PROC: IRPERMA (2019-07-24 13:30)